=== PATIENT | female | born 1955 | race Caucasian/White ===

== ENCOUNTER 2021-08-08 16:14 | Inpatient (IN) | payer MEDICARE, SELFPAY ==
[2021-08-08] VITALS (14 sets, daily range): BP systolic 111–131; BP diastolic 60–81; PULSE 78–91; RESP 11–28; TEMP 36.9–37; O2SAT 89–100; BMI 23.8
--- NOTE | ~2021-08-08 | XR_ITS ---
EXAMINATION: XR shoulder RT min 2V DATE: 08/11/2021 16:36 INDICATION: Right-sided weakness. Falls. TECHNIQUE: 4 views of right shoulder were obtained. COMPARISON: None. FINDINGS: There is superior subluxation of humeral head with respect to glenoid with narrowing of the subacromial space, consistent with rotator cuff tear. No fracture. There is mild osteoarthritis of g lenohumeral joint and moderate osteoarthritis of acromioclavicular joint. IMPRESSION: 1. Polyarticular osteoarthritis. 2. Right rotator cuff tear. Reviewed, dictated and finalized at location B.
--- NOTE | ~2021-08-08 | XR_ITS ---
EXAMINATION: XR humerus RT DATE: 08/11/2021 16:36 INDICATION: Right arm weakness. Falls. TECHNIQUE: 2 views of right humerus were obtained on 3 radiographs. COMPARISON: None. FINDINGS: Bone alignment is normal. No fracture. There is mild osteoarthritis of glenohumeral joint a nd moderate osteoarthritis of acromioclavicular joint. There are enthesophytes at medial and lateral humeral epicondyles. IMPRESSION: 1. Polyarticular osteoarthritis. Reviewed, dictated and finalized at location B.
--- NOTE | ~2021-08-08 | XR_ITS ---
XR chest 1V DATE: 08/08/2021 17:09 INDICATION: Fall TECHNIQUE: AP chest COMPARISON: None FINDINGS: Cardiomegaly. Prominent aortic calcification. There is prominent blunting of the left costophrenic angle which may be due to pleural effusion and/o r scarring. There is infiltrate, atelectasis and/or scarring of the mid and lower left lung. There is left apical capping. There is left lung volume loss. There is mild right apical capping. The right lung is moderately hyperinflated. There may be minimal infiltrate or atelectasis at the right lung base but the right lung otherwise appears clear of infilt rate or consolidation. No right pleural effusion. Diffuse osteopenia. There is mild thoracic dextroscoliosis. IMPRESSION: Prominent infiltrate, atelectasis and/or scarring in the left mid and lower lung Left pleural effusion and/or scarring Hyperinflation, suggesting COPD Cardiomegaly Aortic atherosclerosis Osteopenia Reviewed, dictated and finalized at location A. IMPRESSION: Prominent infiltrate, atelectasis and/or scarring in the left mid a nd lower lung Left pleural effusion and/or scarring Hyperinflation, suggesting COPD Cardiomegaly Aortic atherosclerosis Osteopenia
--- NOTE | ~2021-08-08 | XR_ITS ---
XR knee RT 2V 08/08/2021 17:09 Indication: Right knee pain Procedure: 3 views right knee Comparison: No prior studies for comparison. Findings: There is anatomic alignment. There is mild osteoarthritis. There are vascular calcification s and phleboliths. No significant joint effusion. No acute fracture or traumatic malalignment. Impression: 1: No acute fracture. Reviewed, dictated and finalized at location B. Impression: 1: No acute fracture.
--- NOTE | ~2021-08-08 | XR_ITS ---
XR chest 1V portable DATE: 08/17/2021 05:40 INDICATION: Increased oxygen uterus TECHNIQUE: Portable AP chest on 08/17/2021 0524 hours COMPARISON: 08/15/2021 portable AP chest at 1631 hours FINDINGS: Right internal jugular dialysis catheter tip overlies the upper right atrium. Cardiac megaly. Extensive thoracic and abdominal aortic calcification. Persistent infiltrate in the left mid and lower lung zones and mild left pleural effusion. No right pleural effusion. Osteopenia. IMPRESSION: No significant change since 08/15/2021 Reviewed, dictated and finalized at location A.
--- NOTE | ~2021-08-08 | NM_ITS ---
EXAMINATION: NM bone scan whole body DATE: 08/14/2021 15:44 INDICATION: Calf pain. Assess for metastatic calcification. TECHNIQUE: 26.9 mCi Tc-99m HDP was administered intravenously. Delayed whole-body scintigrams were o btained. COMPARISON: Right hip radiographs dated 08/10/2021, right wrist radiographs dated 08/09/2021 and chest radiograph dated 08/08/2021. FINDINGS: Photopenic defect at the right hip corresponding to a bipolar type right hip hemiarthroplasty. Increa sed uptake at the right wrist corresponding to a recent fracture of the distal radial metaphyseal reg ion. Otherwise normal bone and soft tissue activity. IMPRESSION: 1. Uptake at the right wrist associated with a recent distal radial fracture seen on radiographs date d 08/09/2021. 2. Photopenic defect associated with a recently placed right hip hemiarthroplasty. Reviewed, dictated and finalized at location A. IMPRESSION: 1. Uptake at the right wrist associated with a recent distal radial fracture se en on radiographs dated 08/09/2021. 2. Photopenic defect associated with a recently placed right hip hemiarthroplas ty.
--- NOTE | ~2021-08-08 | XR_ITS ---
EXAMINATION: XR chest port-a-cath/central DATE: 08/15/2021 16:35 INDICATION: Central line placement. TECHNIQUE: A single frontal view of the chest was obtained. COMPARISON: Chest 2 views 08/08/2021 FINDINGS: There are airspace opacities in left mid and lower lung zones. There is mild scarring at th e lung apices. A calcified right lung nodule is consistent with old granulomatous disease. There is a small left pleural effusion. No pneumothorax. The heart size is normal. A right internal jugular andrew tral venous catheter is seen with tip in the proximal right atrium. IMPRESSION: 1. Central line tip in proximal right atrium. 2. Stable airspace opacities in left mid and lower lung zones, consistent with atelectasis versus pne umonia. 3. Stable small left pleural effusion. Reviewed, dictated and finalized at location B. IMPRESSION: 1. Central line tip in proximal right atrium. 2. Stable airspace opacities in left mid and lower lung zones, consistent with atelectasis versus pneumonia. 3. Stable small left pleural effusion.
--- NOTE | ~2021-08-08 | XR_ITS ---
XR chest 1V portable DATE: 08/17/2021 08:09 INDICATION: Shortness of breath. Hypertension. TECHNIQUE: Portable AP chest on 08/17/2021 at 0805 hours COMPARISON: 08/17/2021 portable AP chest at 0524 hours FINDINGS: Right internal jugular dialysis catheter is again noted with tip overlying upper right atri um. Cardiomegaly. Extensive thoracic and abdominal aortic calcification. Persistent infiltrate and/atelectasis in the left mid and lower lung zone and mild left pleural effus ion, stable since 8 hours earlier. Osteopenia. IMPRESSION: Persistent infiltrate and/atelectasis in left mid and lower lung zones and mild left pleu ral effusion: No significant change since 8 hours earlier Reviewed, dictated and finalized at location A. IMPRESSION: Persistent infiltrate and/atelectasis in left mid and lower lung zo stefano and mild left pleural effusion: No significant change since 8 hours earlier
--- NOTE | ~2021-08-08 | XR_ITS ---
EXAMINATION: XR hip RT min 2V DATE: 08/10/2021 10:05 INDICATION: Status post right hip arthroplasty TECHNIQUE: 2 views right hip FINDINGS: There is a right bipolar hip arthroplasty in expected position. Subcutaneous gas with soft tissue swelling are consistent with recent surgery. IMPRESSION: 1. Recent right bipolar hip arthroplasty. Reviewed, dictated and finalized at location A.
--- NOTE | ~2021-08-08 | XR_ITS ---
XR wrist RT w scaphoid 08/09/2021 06:03 Indication: Wrist pain after fall Procedure: 5 views of the right wrist Comparison: No prior studies for comparison. Findings: Osteopenia. There is a nondisplaced distal radial fracture. Cannot exclude intra-articular extension. There is moderate dorsal soft tissue swelling. No carpal fractures are identified. There a re extensive vascular calcifications. Mild osteoarthritis of the triscaphe and first CMC joints. Impression: 1: Nondisplaced fracture distal aspect of the radius. Cannot exclude intra-articular extension. Reviewed, dictated and finalized at location A. Impression: 1: Nondisplaced fracture distal aspect of the radius. Cannot exclude intra-kerry cular extension.
--- NOTE | ~2021-08-08 | XR_ITS ---
EXAMINATION: XR barium swallow modified DATE: 08/11/2021 14:08 INDICATION: Dysphagia. TECHNIQUE: The patient was given barium-containing material of multiple consistencies to swallow by t ruben speech pathologist while I performed fluoroscopy. Dose-area product was 1.513 Gy-cm2. 3.3 minutes fluoroscopy time FINDINGS: Oral phase: Within functional limits Pharyngeal Phase: Reduced tongue base retraction Minimal vallecular residue Trace laryngeal penetration during swallowing of solid food Cervical/Esophageal Stage: Within functional limits IMPRESSION: Modified esophagram findings as above. Please refer to the speech therapy report for spec ific recommendations. Reviewed, dictated and finalized at Location A. Reviewed, dictated and finalized at location A. IMPRESSION: Modified esophagram findings as above. Please refer to the speech t herapy report for specific recommendations.
--- NOTE | ~2021-08-08 | CT_ITS ---
Patient Name: Patient Name MR#: Patient MRN Accession#: Accession Numbers EXAMINATION: CTA brain carotid DATE: 08/10/2021 18:58 INDICATION: Stroke TECHNIQUE: Computed tomographic angiography (CTA) of the head was performed without and with 100 mL O mnipaque-300 intravenous contrast. CTA of the neck was performed with intravenous contrast. The dose- length product was 1707.16 mGy-cm. Maximum intensity projection and volume rendered 3D-reconstruction s were created by the technologist on a separate workstation. COMPARISON: None. FINDINGS: CTA NECK: Aortic arch and proximal great vessels: Atherosclerotic calcifications at the visualized aortic arch and proximal great vessels. Moderate origin stenosis of the left common carotid artery. Severe stenos is of the left subclavian artery origin. Right common carotid, carotid bifurcation, and internal carotid artery: Mild calcified plaque at the distal bifurcation/proximal right ICA.There is 28% stenosis of the proximal right internal carotid ar inez relative to normal distal artery lumen diameter (NASCET criteria). Left common carotid, carotid bifurcation, and internal carotid artery: No significant atherosclerosis .There is 0% stenosis of the proximal left internal carotid artery relative to normal distal artery l umen diameter (NASCET criteria). Vertebral arteries: No significant plaque or stenosis. Right vertebral artery is dominant, Other findings: Peripheral consolidation in the anterior left lower lung, incompletely evaluated. Sma ll-moderate possibly loculated left pleural effusion. Additional peripheral nodular opacity in the le ft upper lung. Likely coronary artery calcifications. Pericardial and prevascular calcification possi claude from prior surgery or prior bout of pericarditis. CTA HEAD: No large vessel occlusion, aneurysm, high flow vascular malformation, nidus or extravasation. Circumf erential calcification at the cavernous carotids bilaterally, without severe stenosis. Focal calcific plaque in the distal bilateral vertebral arteries without severe stenosis. CT brain: No acute large vessel infarct, intracranial hemorrhage, mass, or hydrocephalus. Mild atrophy and inspector returned materials yanna white matter change. IMPRESSION: 1. No intracranial large vessel occlusion. No significant carotid or vertebral stenosis. 2. Pulmonary findings may reflect multifocal pneumonia with small-moderate parapneumonic, possibly l oculated effusion. These findings should be followed to ensure resolution and exclude mass/malignancy . Reviewed, dictated and finalized at location K. IMPRESSION: 1. No intracranial large vessel occlusion. No significant carotid or vertebral stenosis. 2. Pulmonary findings may reflect multifocal pneumonia with small-moderate par apneumonic, possibly loculated effusion. These findings should be followed to e nsure resolution and exclude mass/malignancy.
--- NOTE | ~2021-08-08 | XR_ITS ---
XR hip RT 2V w AP pelvis DATE: 08/08/2021 17:09 INDICATION: Fall. Externally rotated leg. TECHNIQUE: AP pelvis. AP, lateral and crosstable lateral views of right hip COMPARISON: None FINDINGS: There is osteopenia. No pelvic fracture or bone destruction is detected. The pubic symphysis and sacroiliac joints appear intact. There are multiple surgical clips overlying the right lower quadrant and pelvis. There is superolateral displacement of right subcapital femoral neck fracture. No hip fracture detect ed dislocation noted otherwise. Catheter overlies the pelvis. IMPRESSION: Right subcapital femoral neck fracture Reviewed, dictated and finalized at location A.
--- NOTE | ~2021-08-08 | XR_ITS ---
EXAMINATION: XR fl guide central line place DATE: 08/15/2021 16:15 INDICATION: Tunneled dialysis catheter placement. TECHNIQUE: 2 intraoperative fluoroscopic views of the chest were obtained. I was not present. Fluoros copy exposure time was 6 seconds. COMPARISON: None. FINDINGS: There is a right internal jugular central venous catheter with tip in proximal right atrium . IMPRESSION: 1. Catheter tip in proximal right atrium. Reviewed, dictated and finalized at location B.
--- NOTE | 2021-08-08 16:39 | ECG_ITS ---
Measurements Intervals [place] Rate: 81 P: 69 IA: 157 QRS: 68 QRSD: 102 T: 84 QT: 353 QTc: 410 Interpretive Statements SINUS RHYTHM POSSIBLE LATERAL MYOCARDIAL INFARCTION , OF INDETERMINATE AGE [30 ms Q WAVE IN I/aVL/V5/V6] INFEROLATERAL ST ABNORMALITY, CONSIDER ISCHEMIA ABNORMAL EKG NO PREVIOUS ECG AVAILABLE FOR COMPARISON Electronically Signed On 08-09-2021 13:42:57 CDT by Hermann Ayon M.D.
[2021-08-08 16:52] LABS: Basophils Percent Auto 0.4 % (0.2-1.2); Eosinophils Absolute Auto 0.3 K/mm3 (0-0.3); Eosinophils Percent Auto 3.1 % (0-4.4); Hematocrit 37.4 % (37.0-47.0); Hemoglobin 12.2 g/dL (12.0-15.0); Immature Granulocyte Absolute 0.05 K/mm3 (0.00-0.031); Immature Granulocyte Percent A 0.5 % (0-0.5); Lymphocytes Absolute Auto 1.42 K/mm3 (0.9-3.2); Lymphocytes Percent Auto 14.5 % (18.3-44.2); Mean Corpuscular HGB Conc 32.6 g/dl (32-36); Mean Corpuscular Hemoglobin 31.6 pg (26-34); Mean Corpuscular Volume 96.9 fl (80-100); Mean Platelet Volume 9.9 fl (7.4-10.4); Monocytes Percent Auto 9.7 % (2.6-8.5); Neutrophils Percent Auto 71.8 % (45.5-73.1); Platelet Count Result 255 k/mm3 (150-375); Red Blood Count 3.86 M/mm3 (4.2-5.4); Red Cell Distribution Width 15.7 % (11.5-14.5); White Blood Count 9.8 K/mm3 (4.5-10.0)
[2021-08-08 17:05] LABS: Prothrombin Time 13.2 Seconds (11.1-14.7)
[2021-08-08 17:06] LABS: Partial Thromboplastin Time 37.6 SECONDS (22.3-36.8)
[2021-08-08 17:09] LABS: Alanine Aminotransferase 15 U/L (6-35); Albumin Level 2.9 g/dL (3.5-5.1); Alkaline Phosphatase 252 U/L (38-126); Anion Gap 14 mmol/L (8-16); Aspartate Amino Transferase 23 U/L (14-36); Bilirubin,Total 0.6 mg/dL (0.2-1.3); Blood Urea Nitrogen 42 mg/dL (7-17); Calcium 8.2 mg/dL (8.4-10.2); Carbon Dioxide 22 mmol/L (22-30); Chloride 95 mmol/L (98-107); Estimated CRCL calculation 4 ml/min; Estimated Glomerular Filt Rate 4; Glucose 140 mg/dL (65-110); Potassium 2.7 mmol/L (3.4-5.0); Sodium 131 mmol/L (137-145)
--- NOTE | 2021-08-08 17:25 | ED.FALL ---
HPI - Fall General Chief Complaint: Fall Stated Complaint: fall; hip pain Time Seen by Provider: 08/08/21 16:23 Source: patient Mode of arrival: EMS Limitations: no limitations History of Present Illness HPI Narrative: This is a 66 year old female with history of GERD , kidney transplant , now on dialysis who presents for evaluation of right hip pain s/p fall. Patient states she was getting out truck and she did not realized she on a driveway with incline. She lost her balance and she fell onto her right hip. She denies hitting her head or LOC. She is complaining of right hip pain and right knee pain . She denies neck pain, rib pain or abdominal pain. She has bruising to right cheek and she states this is from a fall from weeks ago. She does not take any blood thinners. Related Data Allergies Allergy/AdvReac Type Severity Reaction Status Date / Time Penicillins Allergy Difficulty Verified 08/08/21 16:31 Breathing Review of Systems Review of Systems: All systems reviewed & are unremarkable except as noted in HPI and below Constitutional: Constitutional: Denies chills and Denies fatigue Cardiovascular: Cardiovascular: Denies chest pain Respiratory: Respiratory: Denies chest congestion and Denies dyspnea Gastrointestinal: Gastrointestinal: Denies abdominal pain, Denies bloating and Denies constipation Musculoskeletal: Musculoskeletal: Denies back pain [facility] Past Medical History Medical History (Updated 08/08/21 @ 17:49 by Chanelle Wyatt MD) ESRD on dialysis GERD (gastroesophageal reflux disease) History of peritoneal dialysis Kidney transplant rejection Orthostatic hypotension Peritoneal dialysis catheter in place Social History Social History (Updated 08/08/21 @ 17:41 by Chanelle Wyatt MD) Smoking status: Never smoker Exam Const: General: alert Nutritional Appearance: thin Orientation/consciousness: patient oriented x3 Limitations: no limitations HENMT: Head: normal to inspection and no hematomas General nose exam: Normal external nose present Mouth: Yes Normal oral and palatal mucosa present Other: right cheek bruising Eyes: Conjunctivae: conjunctivae normal Pupils: Equal, round and reactive pupils present EOM: EOMs intact bilaterally Neck: Neck: normal visual inspection Chest: Chest palpation & inspection: normal inspection of the chest and no tenderness Resp: Effort & Inspection: normal respiratory effort Auscultation: clear to auscultation bilaterally and breath sounds present Cardio: Rate: regular rate Rhythm: regular rhythm Heart sounds: no murmurs GI: GI Palp: Yes Soft to palpation, No Tenderness to palpation present (GI), No Guarding due to palpation present (GI) and No Rigid due to palpation Auscultation: normal bowel sounds Neuro: General: patient oriented x3, moves all extremities and CN's II-XI intact bilaterally Extrem: Other: right hip TTP, unable to move right hip due to pain, there is mild tenderness right knee but no swelling or deformity. Able to move foot distally Psych: Mental Status: mental status grossly normal Affect: normal affect Course Reevaluation(s) Reevaluation #1: Patient understands that she has right hip fracture that will need surgery. 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 Date: 08/08/21 Time: 17:44 Consultations Consultation #1: I Discussed history with Dr. Shelley who agrees to consult for right hip fracture. Date: 08/08/21 Time: 17:43 Consultation #2: I spoke with DR River who agrees to consult. He will arrange for peritoneal dialysis tonight Date: 08/08/21 Time: 17:43 Vital Signs Vital signs: Vital Signs Temperature 98.4 F 08/08/21 16:10 Pulse Rate 85 08/08/21 16:10 Respiratory Rate 18 08/08/21 16:10 Pulse Oximetry 98 08/08/21 16:10 Oxygen Delivery Room Air 08/08/21 16:10 Temperature 98.4 F 10
[2021-08-08] MEDS: ONDANSETRON INJ 4 MG/2 ML VIAL IV PUSH (17:27)
[2021-08-08] MEDS: MORPHINE SULFATE (*CRX) 4 MG/ML INJ IV PUSH (17:27)
[2021-08-08] MEDS: POTASSIUM CHLORIDE 20 MEQ TABLET 40 MEQ PO (17:28)
--- NOTE | 2021-08-08 21:44 | ADMGEN ---
This patient, Ruby Campbell, was admitted to Medical Room 246-01. Patient/family oriented to hospital policies and general routines including ID bracelet, bed and alarms, visiting hours, pain management, procedures, bathroom and other care routines, personal items, smoking policy, room service/diet, and visiting hours. Information on how to activate the Rapid Response Team has been discussed. Patient/Family are encouraged to report perceived risks to care and to ask questions if they do not understand what they are told or what they should do.
--- NOTE | 2021-08-08 22:00 | PM.IMHP ---
H&P: HPI History of Present Illness Date/Time: 08/08/21 22:00 Chief Complaint: Right hip pain after fall. Narrative: This is a very pleasant 66-year-old female with hypotension, suspected chronic obstructive pulmonary disease given significant secondhand smoke exposure, valvular disease, possible congestive heart failure, sleep apnea, borderline diabetes, and end-stage renal disease on peritoneal dialysis who presented to the emergency department via EMS for evaluation of right hip pain after a fall. She and her were going to visit friends at their new home, and when she stepped out of the truck onto the driveway she accidentally stumbled on a sloped curb which caused her to fall backwards and land on the right side of her buttocks and hip. She had immediate pain in her right hip and wrist and was unable to get herself up or bear weight. She was found to have a right subcapital femoral neck fracture and she is being admitted in this setting. Vital signs were stable on arrival. Her potassium level was low at 2.7 and with further questioning she does mention having some loose stools for several days though that has improved. It should be mentioned that within the last couple of months she was taken off tacrolimus and prednisone as her kidney transplant had completely failed and she was no longer making urine. Course she was instructed to taper off of her steroids however she got the instructions confused and it sounds as though she almost abruptly stopped taking the prednisone. It is noted that she is on midodrine and she endorses frequent lightheadedness and dizziness with position changes causing falls (she estimates that she has had 8 falls this year). She assures me that these episodes have been occurring far longer than she has been off the prednisone. At the time my evaluation she is resting comfortably and has no specific complaints. She denies having lightheadedness and dizziness prior to the fall states that was simply a mechanical fall. There was no head trauma or loss of consciousness. Review of Systems Review of Systems: Twelve systems were reviewed. She has lost weight over the years but it has been stable recently. She previously used to CPAP however has not used it much since her weight loss. She denies significant paroxysmal nocturnal dyspnea and seems to sleep okay at nighttime. No recent cold or flu symptoms. No dysphagia or concerns for aspiration. She has occasional chest tightness and shortness of breath ?when fluid accumulates? but her volume status has been well controlled recently. On occasion she will have chest tightness with exertion, most recently several days ago when caring and some groceries. Her symptoms resolved quickly with rest. There was no dizziness, diaphoresis, nausea, vomiting, or significant shortness of breath at that time. She is followed by supervisor winter at [facility] who is monitoring ?some sort of valve problem.? She thinks it may be the aortic valve but she cannot say for certain. She suspects that she has COPD as her parents were heavy smokers in her smoked for decades in their home; she now makes him smoke outdoors. She is also followed by a teacher of the emotionally disturbed who told her that she probably has some emphysema and that she has some scarring at the left lung base. No known history of coronary artery disease. She is uncertain if she has ever had a cardiac catheterization. No longer urinates. Except as documented, all other systems were reviewed and are negative. [facility] Past Medical History Medical History (Updated 08/09/21 @ 00:55 by Velma Rivera PA-C) End-stage renal disease on peritoneal dialysis Gastroesophageal reflux disease Hypertension 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 Transplant lasted 11 years before failing. Obstructive sleep apnea No longer using CPAP after weight loss. Orthostatic hypotension Prediabetes Skin cancer Including basal cell and squamou
[2021-08-08 23:16] LABS: Anion Gap 17 mmol/L (8-16); Blood Urea Nitrogen 43 mg/dL (7-17); Calcium 8.3 mg/dL (8.4-10.2); Carbon Dioxide 21 mmol/L (22-30); Chloride 95 mmol/L (98-107); Estimated CRCL calculation 4 ml/min; Estimated Glomerular Filt Rate 3; Glucose 108 mg/dL (65-110); Magnesium 1.7 mg/dL (1.6-2.3); Phosphorus 9.7 mg/dL (2.5-4.5); Potassium 3.1 mmol/L (3.4-5.0); Sodium 133 mmol/L (137-145)
[2021-08-08 23:18] LABS: Prothrombin Time 13.2 Seconds (11.1-14.7)
[2021-08-08 23:20] LABS: Partial Thromboplastin Time 39.4 SECONDS (22.3-36.8)
--- NOTE | 2021-08-09 00:58 | ECHO_ITS ---
Patient Info Name: Ruby Campbell Age: 66 years : 1955 Gender: Female Ht: 64 in Wt: 138 lbs BSA: 1.69 m2 HR: 97 bpm BP: 131 / 79 mmHg Heart Rhythm: Sinus Rhythm Technical Quality: Good Exam Date: 08/09/2021 9:34 AM Exam Location: [facility] Patient Status: Inpatient Admit Date: 08/08/2021 Staff Ordering Physician: Velma Rivera PA-C Plastics Fabricator Or Welder: Shwetha Gardiner RDCS Attending Provider: Yancy Bustamante MD Referring Physician: Miguel CUEVAS; Exam Type: CA echo doppler color flow Study Info Indications R07.9 - Chest pain, unspecified Complete two-dimensional, color flow and Doppler transthoracic echocardiogram is performed. Summary 1. Complete two-dimensional, color flow and Doppler transthoracic echocardiogram is performed. 2. Left ventricular chamber dimension is severely enlarged. 3. Left ventricular systolic function is severely reduced, estimated at 20-25%. 4. There is mildly increased left ventricular wall thickness. 5. The left ventricular diastolic function is grade II diastolic dysfunction. 6. Right ventricular systolic function is reduced. 7. Left atrial chamber dimension is moderately enlarged. 8. Right atrial chamber dimension is mildly enlarged. 9. There is moderate aortic valve stenosis with a peak velocity of 270 cm/s, mean gradient of 14 mmHg, and aortic valve area of 0.8 cm2. 10. The mitral valve has thickened leaflets and calcified annulus. 11. There is moderate to severe mitral valve regurgitation. 12. There is mild tricuspid valve regurgitation. 13. Moderate pulmonary hypertension, estimated pulmonary arterial systolic pressure is 50 mmHg. 14. There is mild pulmonic regurgitation. Left Ventricle Left ventricular chamber dimension is severely enlarged. Left ventricular systolic function is severely reduced, estimated at 20-25%. There is mildly increased left ventricular wall thickness. The left ventricular diastolic function is grade II diastolic dysfunction. Right Ventricle Right ventricular chamber dimension is normal. Right ventricular systolic function is reduced. Left Atria Left atrial chamber dimension is moderately enlarged. Right Atria Right atrial chamber dimension is mildly enlarged. Atrial Septum Suspected atrial septal defect visualized by color flow imaging. Aortic Valve The aortic valve is probable trileaflet. There is moderate aortic valve stenosis with a peak velocity of 270 cm/s, mean gradient of 14 mmHg, and aortic valve area of 0.8 cm2. There is trace aortic valve regurgitation. Pulmonic Valve The pulmonic valve is normal. There is no pulmonic valve stenosis. There is mild pulmonic regurgitation. Mitral Valve The mitral valve has thickened leaflets and calcified annulus. There is no mitral valve stenosis. There is moderate to severe mitral valve regurgitation. Tricuspid Valve The tricuspid valve leaflets are normal. There is no significant tricuspid valve stenosis. There is mild tricuspid valve regurgitation. Moderate pulmonary hypertension, estimated pulmonary arterial systolic pressure is 50 mmHg. Pericardium/Pleural The pericardium appears normal. There is trivial pericardial effusion. Inferior Vena Cava Dilated inferior vena cava with <50% collapse upon inspiration consistent with elevated right atrial pressure, 10 mmHg. Aorta The aortic root size at the sinus of Valsalva is normal. Left Ventricular Outflow Tract
[2021-08-09 06:00] VITALS: BP 119/74; PULSE 93; RESP 21; TEMP 36.6; O2SAT 100
[2021-08-09 06:07] LABS: Basophils Percent Auto 0.3 % (0.2-1.2); Eosinophils Absolute Auto 0.2 K/mm3 (0-0.3); Eosinophils Percent Auto 1.4 % (0-4.4); Hematocrit 37.7 % (37.0-47.0); Hemoglobin 12.3 g/dL (12.0-15.0); Immature Granulocyte Absolute 0.08 K/mm3 (0.00-0.031); Immature Granulocyte Percent A 0.5 % (0-0.5); Lymphocytes Absolute Auto 2.64 K/mm3 (0.9-3.2); Lymphocytes Percent Auto 17.3 % (18.3-44.2); Mean Corpuscular HGB Conc 32.6 g/dl (32-36); Mean Corpuscular Hemoglobin 31.7 pg (26-34); Mean Corpuscular Volume 97.2 fl (80-100); Mean Platelet Volume 10.3 fl (7.4-10.4); Monocytes Absolute Auto 1.2 K/mm3 (0.1-0.6); Monocytes Percent Auto 8.1 % (2.6-8.5); Neutrophils Percent Auto 72.4 % (45.5-73.1); Platelet Count Result 241 k/mm3 (150-375); Red Blood Count 3.88 M/mm3 (4.2-5.4); Red Cell Distribution Width 15.8 % (11.5-14.5); White Blood Count 15.2 K/mm3 (4.5-10.0)
[2021-08-09 06:11] LABS: Alanine Aminotransferase 14 U/L (6-35); Albumin Level 2.8 g/dL (3.5-5.1); Alkaline Phosphatase 205 U/L (38-126); Anion Gap 19 mmol/L (8-16); Aspartate Amino Transferase 19 U/L (14-36); Bilirubin,Total 0.6 mg/dL (0.2-1.3); Blood Urea Nitrogen 46 mg/dL (7-17); Calcium 8.3 mg/dL (8.4-10.2); Carbon Dioxide 19 mmol/L (22-30); Chloride 96 mmol/L (98-107); Estimated CRCL calculation 4 ml/min; Estimated Glomerular Filt Rate 3; Glucose 104 mg/dL (65-110); Magnesium 1.7 mg/dL (1.6-2.3); Potassium 3.6 mmol/L (3.4-5.0); Sodium 134 mmol/L (137-145)
[2021-08-09 09:16] LABS: Free T4 Free Thyroxine Reflex 1.01 ng/dL (0.78-2.19)
[2021-08-09] MEDS: PANTOPRAZOLE 40 MG TABLET PO (09:18)
[2021-08-09] MEDS: MIDODRINE HCL 10 MG TABLET PO ×3 (09:18→16:19)
[2021-08-09] MEDS: SEVELAMER CARBONATE 800 MG TABLET 2400 MG PO (09:18)
--- NOTE | 2021-08-09 10:13 | PM.CNNEP ---
Assessment and Plan Additional Plan 1. Ruby has end-stage renal disease. She gets peritoneal dialysis. She uses yellow bags. Mostly because she does not eat very well. We will continue to use yellow bags today. her volume status looks okay. She has no swelling and her lungs are clear. Chest x-ray does not show fluid. Although she does have cardiomegaly. Her potassium is okay. Her bicarbonate level is a little low. Will give her some sodium bicarbonate tablets. Her creatinine is a little bit high. We will do more dialysis here than at home to see if we get these numbers better. 2. hypertension no longer an issue 3. orthostatic hypotension blood pressure drops with standing she says. We can not really test this not because of her broken hip. I worry that she has adrenal insufficiency. I will check a Cortrosyn stim test. This we will get the baseline right away. If the baseline is below 15 and if there is not enough time before surgery will empirically start her on steroids to get her through the surgery. 4. sleep apnea She does not use a CPAP machine since she lost weight. 5. pre diabetes Sugars good at 1:04 a.m. this morning 6. valvular heart disease she is getting an echocardiogram. 7. fractured right hip She will be seen by Orthopedics. The patient probably has soft bones between the steroids and the renal osteodystrophy. 8. GERD she is on pantoprazole 9. anemia hemoglobin is good at 12.7. No need for EPO. 10. renal osteodystrophy Phosphorus level is very high. She takes sevelamer at home. History of Present Illness Reason for Consult Consult date: 08/09/21 Chief Complaint Chief complaint: right closed subcapital femoral neck fracture disp History of Present Illness Narrative: Ruby is a very pleasant 66-year-old lady who has multiple medical problems including end-stage renal disease on dialysis at home with peritoneal dialysis, status post kidney transplant which lasted 11 years until about a year at ago or so, GERD, hypertension, sleep apnea, orthostatic hypotension. The patient's says that lately she has had trouble with her peritoneal dialysis. Apparently her kinetics show that she s not enough treatment. They been adjusting her dialysis accordingly. She has not been eating very well and she has lost some weight. In addition the patient was getting tacrolimus and prednisone for her transplant. Even though her transplant failed and she was back on dialysis she was making some urine. A couple of months ago she stopped making urine. She was told to wean the tacro and then after tacro was off wean the prednisone but she misunderstood and she stopped both suddenly. This is about a month ago. Her blood pressure used to be high. But when she started dialysis the blood pressure is under better control and she has not had to take any blood pressure meds. In fact sometimes are blood pressure is low and she has orthostatic hypotensive and so she is getting midodrine for this. The patient says that yesterday when she was stepping out of her truck she lost her balance and fell and hurt her right wrist and her right hip. She came to the ER. X-ray show a right hip fracture. Ortho has been consulted. Currently the patient's right hip does not hurt so bad it is more her right knee. She also has pain in her right wrist. This is about the same as it was yesterday. She is getting some pain medicines occasionally. Review of Systems Constitutional: Constitutional: Reports no additional constitutional complaints Eyes: Eyes: Reports no additional eye complaints ENT: Reports system reviewed and no additional complaints, except as documented Cardiovascular: Cardiovascular: Reports no additional cardiovascular complaints Respiratory: Respiratory: Reports no additional respiratory complaints Gastrointestinal: Gastrointestinal: Reports no additional gastrointestinal complaints Genitourinar
--- NOTE | 2021-08-09 10:27 | PM.CNCAR ---
Assessment and Plan Assessment and plan (1) Hypertension: Code(s): I10 - Essential (primary) hypertension Status: Acute Assessment and Plan: Reasonably controlled (2) Obstructive sleep apnea: Code(s): G47.33 - Obstructive sleep apnea (adult) (pediatric) Status: Acute (3) End-stage renal disease on peritoneal dialysis: Code(s): N18.6 - End stage renal disease; Z99.2 - Dependence on renal dialysis Status: Acute Assessment and Plan: On peritoneal dialysis (4) Closed subcapital fracture of neck of right femur: Qualifiers: Encounter type: initial encounter Qualified Code(s): S72.011A - Unspecified intracapsular fracture of right femur, initial encounter for closed fracture Code(s): S72.011A - Unspecified intracapsular fracture of right femur, initial encounter for closed fracture Status: Acute (5) Preoperative cardiovascular examination: Code(s): Z01.810 - Encounter for preprocedural cardiovascular examination Status: Acute Assessment and Plan: She is at moderate risk of having perioperative cardiovascular complications. Caution to avoid excessive fluid resuscitation perioperatively. (6) Valvular heart disease: Code(s): I38 - Endocarditis, valve unspecified Status: Acute Assessment and Plan: 2D echocardiogram Doppler is ordered and will be reviewed. History of Present Illness History of Present Illness Consult date/time: 08/09/21 10:27 Reason For Visit: right closed subcapital femoral neck fracture disp Narrative: Requesting provider: Velma Rivera Reason for consultation: Preoperative risk evaluation Date of service 08/09/2021 History: Patient is a 66-year-old female who has a history of shortness of breath with activity. She denies any syncope, presyncope, paroxysmal nocturnal dyspnea, orthopnea. She has intermittent swelling. She does have end-stage renal disease. She currently denies any chest pain. Shortness of breath occurs with mild activity. Reportedly does have a history of valvular heart disease and is followed at [facility] Review of Systems Review of Systems: All systems reviewed & are unremarkable except as noted in HPI and below Constitutional: Constitutional: Denies body ache(s) Eyes: Eyes: Denies blurry vision ENT: Reports as per HPI and Reports Normal hearing present Cardiovascular: Cardiovascular: Denies chest pain Respiratory: Respiratory: Denies chest congestion and Reports dyspnea Gastrointestinal: Gastrointestinal: Denies no additional gastrointestinal complaints Genitourinary: Genitourinary: Denies hematuria Musculoskeletal: Musculoskeletal: Denies back pain Integumentary/Breasts: Skin/Breast: Denies breast pain Neurologic: Denies abnormal gait Psychiatric: Psychiatric: Denies anxiety Endocrine: Endocrine: Denies excessive sweating Hematologic/Lymphatic: Hematologic/Lymphatic: Denies easy bleeding Allergic/Immunologic: Allergic/Immunologic: Denies GI upset with certain foods PMFSH Past Medical History Medical History End-stage renal disease on peritoneal dialysis Gastroesophageal reflux disease Hypertension 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 Transplant lasted 11 years before failing. Obstructive sleep apnea No longer using CPAP after weight loss. 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 Valvular heart disease Surgical History Surgical History History of section History of hysterectomy History of tubal ligation Peritoneal dialysis catheter in place Status post excision of Bhatia's neuroma Status post surgical removal of malignant neoplasm of skin Family History Family History (Reviewed 08/09/21 @ 10:32 by Hermann Ayon
--- NOTE | 2021-08-09 10:40 | PM.CNOR ---
Assessment and Plan Assessment and plan (1) Closed subcapital fracture of neck of right femur: Qualifiers: Encounter type: initial encounter Qualified Code(s): S72.011A - Unspecified intracapsular fracture of right femur, initial encounter for closed fracture Code(s): S72.011A - Unspecified intracapsular fracture of right femur, initial encounter for closed fracture Status: Acute Assessment and Plan: New patient evaluation for chief complaint fall with right hip fracture. History, physical exam and radiographs reviewed with the patient. Discussed the condition, nature, etiology and course of natural history with the patient. Treatment options including surgical and nonoperative treatment were reviewed. Risks and benefits of each as well as alternatives reviewed. The patient's questions were answered. Conservative treatment ice And pain control. patient desires operative treatment. Discussed nonoperative and operative treatment options with the patient. Risks and benefits of each as well as alternatives were reviewed. All of the patient's questions were answered. The risks of surgery reviewed including but not limited to: Neurovascular damage, wound complication, infection, blood clot, pulmonary embolus, stroke, myocardial infarction, and anesthetic risks up to and including . Continued pain and possible dysfunction were explained. Specific risks of the procedure including later recurrence of deformity. No guarantees were offered. If hardware used, discussed risk of failure/ breakage and possible need for removal. If complications occur, the patient understands the need for further treatment, possible further surgery. Patient verbalizes understanding and wishes to proceed. PLAN: Right hip hemiarthroplasty. Plan to proceed when stable. Appreciate Nephrology, cardiology. (2) Closed fracture of right distal radius: Qualifiers: Encounter type: initial encounter Fracture morphology: Colles' Qualified Code(s): S52.531A - Colles' fracture of right radius, initial encounter for closed fracture Code(s): S52.501A - Unspecified fracture of the lower end of right radius, initial encounter for closed fracture Status: Acute Assessment and Plan: New patient evaluation status post injury. The history, physical exam and radiographs reviewed with the patient. Type of fracture discussed in detail. Nondisplaced fracture distal radius. Treatment options including operative and non operative treatment reviewed. Risks, benefits and alternatives of each treatment discussed in detail. The patient has declined surgical treatment. Risks of treatment decision discussed in detail. Potential problems with displacement of the fracture, loss of alignment, nonunion, malunion and dysfunction discussed in detail. The patient's questions were answered. They verbalized understanding and agreement. Conservative treatment with immobilization, ice, compression and elevation. Will try and fit with Velcro fracture splint. (3) Fall from ground level: Code(s): W18.30XA - Fall on same level, unspecified, initial encounter Status: Acute History of Present Illness HPI Consult date: 08/09/21 Requesting physician: Chanelle Wyatt MD Chief complaint: right closed subcapital femoral neck fracture disp Narrative: 66-year-old woman who lives at home with her currently on peritoneal dialysis has had multiple recent falls. Patient states week and sometimes dizzy but does not black out. Had a fall last night. Brought to the emergency room and found to have right hip fracture. Admitted for same. Complains of right hip pain. Denies loss of consciousness. Denies neck or back pain. No problems with the hip prior to the injury. Does have numbness in both feet which is chronic. Review of Systems Review of Systems: All systems reviewed & are unremarkable except as noted in HP
[2021-08-09 10:54] LABS: Total Triiodothyronine (T3) 0.56 NG/ML (0.97-1.69)
[2021-08-09] MEDS: COSYNTROPIN 0.25 MG/ML VIAL IV PUSH (10:58)
--- NOTE | 2021-08-09 13:24 | PM.IMPN ---
Progress Note: A&P Assessment and Plan (1) Fall from ground level: Code(s): W18.30XA - Fall on same level, unspecified, initial encounter Status: Acute Assessment and Plan: Mechanical fall in which she sustained a right hip fracture and right distal radius fracture. Patient does report frequent falls. Implement fall precautions She will need PT/OT postoperatively (2) Closed subcapital fracture of neck of right femur: Qualifiers: Encounter type: initial encounter Qualified Code(s): S72.011A - Unspecified intracapsular fracture of right femur, initial encounter for closed fracture Code(s): S72.011A - Unspecified intracapsular fracture of right femur, initial encounter for closed fracture Status: Acute Assessment and Plan: Secondary to fall as above Appreciate orthopedic surgery consultation Plan for right hip hemiarthroplasty tomorrow per Orthopedic surgery Supportive care. Analgesics available as needed. (3) Closed fracture of right distal radius: Qualifiers: Encounter type: initial encounter Fracture morphology: Colles' Qualified Code(s): S52.531A - Colles' fracture of right radius, initial encounter for closed fracture Code(s): S52.501A - Unspecified fracture of the lower end of right radius, initial encounter for closed fracture Status: Acute Assessment and Plan: Secondary to fall Seen in consultation by Orthopedic surgery Planning for conservative management with immobilization, ice, compression elevation She will be fitted for a fracture splint Supportive care (4) End-stage renal disease on peritoneal dialysis: Code(s): N18.6 - End stage renal disease; Z99.2 - Dependence on renal dialysis Status: Acute Assessment and Plan: Patient maintained on peritoneal dialysis. Last had peritoneal dialysis on 08/07/2021 Dr. River consulted for dialysis orders. Help is greatly appreciated. Monitor renal function and electrolytes Renal diet Addition of sodium bicarbonate tablets per Nephrology recommendations (5) Hypokalemia: Code(s): E87.6 - Hypokalemia Status: Acute Assessment and Plan: Resolved with supplementation Suspected due to recent loose stools which have resolved Concern for adrenal insufficiency due to discontinuation of prednisone. Cortisol levels are within normal limits. Continue to monitor BMP (6) Valvular heart disease: Code(s): I38 - Endocarditis, valve unspecified Status: Acute Assessment and Plan: Patient reports history of valvular disease that she cannot elaborate on She is followed by a utility system operator at [facility] (name unknown) and records have been requested for review. Echocardiogram has been completed, awaiting interpretation Consultation to utility system operator for risk stratification given upcoming surgery. Reports the patient is at moderate risk for perioperative cardiovascular complications Recommendations to avoid excessive fluid resuscitation perioperatively. (7) Orthostatic hypotension: Code(s): I95.1 - Orthostatic hypotension Status: Acute Assessment and Plan: An ongoing problem for this patient. Continue midodrine. Fall precautions implemented (8) Abnormal TSH: Code(s): R79.89 - Other specified abnormal findings of blood chemistry Status: Acute Assessment and Plan: TSH is elevated at 13.2 with normal T4 but low T3 at 0.56 Will begin levothyroxine 25 mg daily She will need outpatient reflex TSH in 4-6 weeks (9) Leukocytosis: Code(s): D72.829 - Elevated white blood cell count, unspecified Status: Acute Assessment and Plan: WBC is slightly elevated today at 15 Suspect this is reactive secondary to fall/injury No signs/symptoms to suggest underlying infectious etiology. Repeat CBC tomorrow morning Subjective Date/time seen: 08/09/21 13:24 Inte
--- NOTE | 2021-08-09 13:24 | P.PNIM_ITS ---
Progress Note: A&P Assessment and Plan (1) Fall from ground level: Code(s): W18.30XA - Fall on same level, unspecified, initial encounter Status: Acute Assessment and Plan: Mechanical fall in which she sustained a right hip fracture and right distal radius fracture. * Patient does report frequent falls. * Implement fall precautions * She will need PT/OT postoperatively (2) Closed subcapital fracture of neck of right femur: Qualifiers: Encounter type: initial encounter Qualified Code(s): S72.011A - Unspecified intracapsular fracture of right femur, initial encounter for closed fracture Code(s): S72.011A - Unspecified intracapsular fracture of right femur, initial encounter for closed fracture Status: Acute Assessment and Plan: Secondary to fall as above * Appreciate orthopedic surgery consultation * Plan for right hip hemiarthroplasty tomorrow per Orthopedic surgery * Supportive care. Analgesics available as needed. (3) Closed fracture of right distal radius: Qualifiers: Encounter type: initial encounter Fracture morphology: Colles' Qualified Code(s): S52.531A - Colles' fracture of right radius, initial encounter for closed fracture Code(s): S52.501A - Unspecified fracture of the lower end of right radius, initial encounter for closed fracture Status: Acute Assessment and Plan: Secondary to fall * Seen in consultation by Orthopedic surgery * Planning for conservative management with immobilization, ice, compression elevation * She will be fitted for a fracture splint * Supportive care (4) End-stage renal disease on peritoneal dialysis: Code(s): N18.6 - End stage renal disease; Z99.2 - Dependence on renal dialysis Status: Acute Assessment and Plan: Patient maintained on peritoneal dialysis. Last had peritoneal dialysis on 08/07/2021 * Dr. River consulted for dialysis orders. Help is greatly appreciated. * Monitor renal function and electrolytes * Renal diet * Addition of sodium bicarbonate tablets per Nephrology recommendations (5) Hypokalemia: Code(s): E87.6 - Hypokalemia Status: Acute Assessment and Plan: Resolved with supplementation * Suspected due to recent loose stools which have resolved * Concern for adrenal insufficiency due to discontinuation of prednisone. Cortisol levels are within normal limits. * Continue to monitor BMP (6) Valvular heart disease: Code(s): I38 - Endocarditis, valve unspecified Status: Acute Assessment and Plan: Patient reports history of valvular disease that she cannot elaborate on * She is followed by a director learning and development at [facility] (name unknown) and records have been requested for review. * Echocardiogram has been completed, awaiting interpretation * Consultation to director learning and development for risk stratification given upcoming surgery. Reports the patient is at moderate risk for perioperative cardiovascular complications * Recommendations to avoid excessive fluid resuscitation perioperatively. (7) Orthostatic hypotension: Code(s): I95.1 - Orthostatic hypotension Status: Acute Assessment and Plan: An ongoing problem for this patient. * Continue midodrine. * Fall precautions implemented (8) Abnormal TSH: Code(s): R79.89 - Other specified abnormal findings of blood chemistry Status: Acute Assessment and Plan: TSH is elevated at 13.2 with normal T4 but low T3 at 0.56 * Will begin levothyroxine 25
[2021-08-09 14:10] VITALS: BP 113/63; PULSE 85; RESP 16; TEMP 36.3; O2SAT 96
[2021-08-09] MEDS: SODIUM BICARBONATE TAB 650 MG TABLET 1300 MG PO (16:19)
[2021-08-09 19:28] VITALS: BP 123/75; PULSE 88; RESP 17; TEMP 36.9; O2SAT 95
[2021-08-09] MEDS: GENTAMICIN SULFATE 0.1% CR 15 GM TUBE 1 APPLIC TOPICAL (20:23)
[2021-08-09] MEDS: GABAPENTIN 100 MG CAPSULE PO (20:25)
[2021-08-09] MEDS: SERTRALINE HCL 50 MG TABLET PO (20:25)
[2021-08-09] MEDS: ACETAMINOPHEN 325 MG TABLET 650 MG PO (20:43)
--- NOTE | 2021-08-09 21:18 | WPDANESEPP ---
Anes - Eval Pre Procedure Procedure: Operation Date: 08/10/21 07:30 Proposed Procedures p Bipolar Hip Replacement(Right) - Steve Shelley MD Date/Time: 08/09/21 21:18 Pre Op Diagnosis: right closed subcapital femoral neck fracture disp Patient Data Age: 66 Gender: F Height: 1.63 m Weight: 59.6 kg Last Vital Signs Temp 98.5 F 08/09/21 19:28 Pulse 88 08/09/21 19:28 Resp 17 08/09/21 19:28 BP 123/75 08/09/21 19:28 Pulse Ox 95 08/09/21 19:28 O2 Del Method Room Air 08/09/21 09:24 Allergies Allergy/AdvReac Type Severity Reaction Status Date / Time Penicillins Allergy Difficulty Verified 08/08/21 21:33 Breathing Home Medications Medication Instructions Recorded Confirmed Type albuterol sulfate 90 mcg/actuation 1 inh inhalation BID PRN sob 08/08/21 08/08/21 History aerosol inhaler gabapentin 100 mg capsule 100 mg PO DAILY 08/08/21 08/09/21 History gentamicin 0.1 % topical cream 1 applic topical DAILY 08/08/21 08/08/21 History midodrine 10 mg tablet 10 mg PO TID 08/08/21 08/09/21 History pantoprazole 40 mg tablet,delayed 40 mg PO DAILY 08/08/21 08/09/21 History release rizatriptan 10 mg tablet 10 mg PO BID PRN Migraine Headache 08/08/21 08/09/21 History sertraline 50 mg tablet 50 mg PO HS 08/08/21 08/09/21 History sevelamer carbonate 2.4 gram oral 2.4 g PO TID 08/08/21 08/08/21 History powder packet Laboratory Tests 08/08/21 08/08/21 08/09/21 22:59 22:59 05:48 WBC 15.2 K/mm3 H K/mm3 (4.5-10.0) RBC 3.88 M/mm3 L M/mm3 (4.2-5.4) Hgb 12.3 g/dL g/dL (12.0-15.0) Hct 37.7 % % (37.0-47.0) MCV 97.2 fl fl (80-100) MCH 31.7 pg pg (26-34) MCHC 32.6 g/dl g/dl (32-36) RDW 15.8 % H % (11.5-14.5) Plt Count 241 k/mm3 k/mm3 (150-375) MPV 10.3 fl fl (7.4-10.4) Immature Gran % (Auto) 0.5 % % (0-0.5) Neut % (Auto) 72.4 % % (45.5-73.1) Lymph % (Auto) 17.3 % L % (18.3-44.2) [place] % (Auto) 8.1 % % (2.6-8.5) Eos % (Auto) 1.4 % % (0-4.4) Baso % (Auto) 0.3 % % (0.2-1.2) Lymph # (Auto) 2.64 K/mm3 K/mm3 (0.9-3.2) [place] # (Auto) 1.2 K/mm3 H K/mm3 (0.1-0.6) Eos # (Auto) 0.2 K/mm3 K/mm3 (0-0.3) Baso # (Auto) 0.0 K/mm3 K/mm3 (0.0-0.1) Abs Immat Gran (auto) 0.08 K/mm3 H K/mm3 (0.00-0.031) Absolute Neuts (auto) 11.0 K/mm3 H K/mm3 (1.3-6.7) Absolute Nucleated RBC 0.0 K/mm3 K/mm3 (0.0-0.012) Nucleated RBC % 0.0 % % (0.0-0.2) PT 13.2 Seconds Seconds (11.1-14.7) INR 1.0 APTT 39.4 SECONDS H SECONDS (22.3-36.8) Sodium 133 mmol/L L mmol/L (137-145) Potassium 3.1 mmol/L L mmol/L (3.4-5.0) Chloride 95 mmol/L L mmol/L (98-107) Carbon Dioxide 21 mmol/L L mmol/L (22-30) Anion Gap 17 mmol/L H mmol/L (8-16) BUN 43 mg/dL H mg/dL (7-17) Creatinine 11.30 mg/dL H mg/dL (0.7-1.0) Estim Creat Clear Calc 4 ml/min ml/min Estimated GFR 3 L (59 - ) Glucose 108 mg/dL mg/dL (65-110) Calcium 8.3 mg/dL L mg/dL (8.4-10.2) Phosphorus 9.7 mg/dL H mg/dL (2.5-4.5) Magnesium 1.7 mg/dL mg/dL (1.6-2.3) Total Bilirubin AST ALT Alkaline Phosphatase Total Protein Albumin TSH (Reflex) Free T4 Total T3 Random Cortisol Cortisol Baseline Cortisol Resp 30 Min Cortisol Resp 60 Min Hep Bs Antigen Hep Bs Antibody Blood Type Antibody Screen 08/09/21 08/09/21 08/09/21 05:48 05:48 05:48 WBC RBC Hgb Hct MCV
[2021-08-09 21:31] LABS: Hepatitis B Surface Antigen Negative (Negative)
[2021-08-09] MEDS: HYDROcodone/acetaminophen (*CRX) 5-325 MG TABLET 1 TAB PO (21:31)
[2021-08-09 21:46] LABS: Hepatitis B Surface Anti Res Positive
[2021-08-10] VITALS (21 sets, daily range): BP systolic 98–132; BP diastolic 52–80; PULSE 78–112; RESP 12–20; TEMP 36–37.3; O2SAT 91–100
[2021-08-10 05:55] LABS: Hematocrit 36.6 % (37.0-47.0); Hemoglobin 11.8 g/dL (12.0-15.0); Mean Corpuscular HGB Conc 32.2 g/dl (32-36); Mean Corpuscular Hemoglobin 31.8 pg (26-34); Mean Corpuscular Volume 98.7 fl (80-100); Mean Platelet Volume 10.4 fl (7.4-10.4); Platelet Count Result 245 k/mm3 (150-375); Red Blood Count 3.71 M/mm3 (4.2-5.4); Red Cell Distribution Width 16.1 % (11.5-14.5); White Blood Count 13.8 K/mm3 (4.5-10.0)
[2021-08-10 06:04] LABS: Anion Gap 20 mmol/L (8-16); Blood Urea Nitrogen 48 mg/dL (7-17); Calcium 8.6 mg/dL (8.4-10.2); Carbon Dioxide 18 mmol/L (22-30); Chloride 93 mmol/L (98-107); Estimated CRCL calculation 4 ml/min; Estimated Glomerular Filt Rate 4; Glucose 131 mg/dL (65-110); Potassium 3.1 mmol/L (3.4-5.0); Sodium 131 mmol/L (137-145)
--- NOTE | 2021-08-10 07:40 | WPDHPUPDATE1 ---
History and Physical Update Update Date/Time: 08/10/21 07:40 History and Physical has been reviewed, including an updated exam of the patient. There are NO changes in the patient's condition. Risks, benefits, and alternatives have been discussed and questions answered. Patient agrees to proceed with procedure.
--- NOTE | 2021-08-10 07:40 | WPDANESEPPF ---
Anes - Initial Pre Proc Eval Procedure: Operation Date: 08/10/21 07:30 Proposed Procedures p Bipolar Hip Replacement(Right) - Steve Shelley MD Date/Time: 08/10/21 07:40 Surgeon: Yancy Bustamante MD Pre Op Diagnosis: right closed subcapital femoral neck fracture disp Patient Data Age: 66 Gender: F Height: 1.63 m Weight: 59.8 kg Last Vital Signs Temp 36.0 C L 08/10/21 04:26 Pulse 87 08/10/21 04:26 Resp 18 08/10/21 04:26 BP 119/74 08/10/21 04:26 Pulse Ox 95 08/10/21 04:26 O2 Del Method Room Air 08/09/21 20:00 Allergies Allergy/AdvReac Type Severity Reaction Status Date / Time Penicillins Allergy Difficulty Verified 08/08/21 21:33 Breathing Home Medications Medication Instructions Recorded Confirmed Type albuterol sulfate 90 mcg/actuation 1 inh inhalation BID PRN sob 08/08/21 08/08/21 History aerosol inhaler gabapentin 100 mg capsule 100 mg PO DAILY 08/08/21 08/09/21 History gentamicin 0.1 % topical cream 1 applic topical DAILY 08/08/21 08/08/21 History midodrine 10 mg tablet 10 mg PO TID 08/08/21 08/09/21 History pantoprazole 40 mg tablet,delayed 40 mg PO DAILY 08/08/21 08/09/21 History release rizatriptan 10 mg tablet 10 mg PO BID PRN Migraine Headache 08/08/21 08/09/21 History sertraline 50 mg tablet 50 mg PO HS 08/08/21 08/09/21 History sevelamer carbonate 2.4 gram oral 2.4 g PO TID 08/08/21 08/08/21 History powder packet Laboratory Tests 08/09/21 08/09/21 08/09/21 05:48 05:48 10:58 WBC RBC Hgb Hct MCV MCH MCHC RDW Plt Count MPV Sodium Potassium Chloride Carbon Dioxide Anion Gap BUN Creatinine Estim Creat Clear Calc Estimated GFR Glucose Calcium Phosphorus Albumin Free T4 1.01 ng/dL ng/dL (0.78-2.19) Total T3 0.56 NG/ML L NG/ML (0.97-1.69) Cortisol Baseline 23.20 ug/dL ug/dL Cortisol Resp 30 Min Cortisol Resp 60 Min Hep Bs Antigen Hep Bs Antibody Blood Type Antibody Screen 08/09/21 08/09/21 08/09/21 10:58 11:32 12:00 WBC RBC Hgb Hct MCV MCH MCHC RDW Plt Count MPV Sodium Potassium Chloride Carbon Dioxide Anion Gap BUN Creatinine Estim Creat Clear Calc Estimated GFR Glucose Calcium Phosphorus Albumin Free T4 Total T3 Cortisol Baseline Cortisol Resp 30 Min 35.90 ug/dL ug/dL Cortisol Resp 60 Min 46.50 ug/dL ug/dL Hep Bs Antigen Hep Bs Antibody Blood Type O Positive Antibody Screen Negative 08/09/21 08/10/21 08/10/21 19:55 05:28 05:28 WBC 13.8 K/mm3 H K/mm3 (4.5-10.0) RBC 3.71 M/mm3 L M/mm3 (4.2-5.4) Hgb 11.8 g/dL L g/dL (12.0-15.0) Hct 36.6 % L % (37.0-47.0) MCV 98.7 fl fl (80-100) MCH 31.8 pg pg (26-34) MCHC 32.2 g/dl g/dl (32-36) RDW 16.1 % H % (11.5-14.5) Plt Count 245 k/mm3 k/mm3 (150-375) MPV 10.4 fl fl (7.4-10.4) Sodium 131 mmol/L L mmol/L (137-145) Potassium 3.1 mmol/L L mmol/L (3.4-5.0) Chloride 93 mmol/L L mmol/L (98-107) Carbon Dioxide 18 mmol/L L mmol/L (22-30) Anion Gap 20 mmol/L H mmol/L (8-16) BUN 48 mg/dL H mg/dL (7-17) Creatinine 10.70 mg/dL H mg/dL
[2021-08-10] MEDS: ceFAZolin 2 GM/D5W 50 ML 2 GM/50 ML BAG IVPB (07:51)
[2021-08-10] MEDS: TRANEXAMIC ACID 1,000MG/ISO100 1,000 MG/100 ML BAG 200 MG IVPB (07:55)
[2021-08-10] MEDS: LIDO 2%/EPINEPHRINE 1:100,000 20 ML VIAL INFILTRATE (08:41)
[2021-08-10] MEDS: SODIUM CHLORIDE 0.9% IV 500 ML 30 ML IV CONT (09:37)
--- NOTE | 2021-08-10 09:49 | W.PM.PROC2 ---
Procedure Note - Detailed Date of Procedure 08/10/21 Pre-op Diagnosis right closed subcapital femoral neck fracture disp Post-op Diagnosis Same Procedure Performed RT hip bipolar Surgeon Steve Shelley MD Cook Room Supervisor 1st asset protection assistant Anesthesia General Indications 66yo woman, fall with rt hip fx. Desires operative tx. Description of Procedure After informed consent was given, the operative extremity was marked in the preoperative holding area. The patient received intravenous antibiotics. Patient was brought to the operating room where they underwent a general anesthetic. Positioned in the lateral decubitus position nonop side down and the operative hip up. Careful gel padding was ensured for the down side. Protection of the head neck was done during turning as well as through the case. The hip was then prepped and draped in the usual sterile surgical fashion using ChloraPrep skin solution. Time-out performed confirming the patient, side of the surgery, and the plan. A longitudinal incision was then made over the lateral side of the hip with the 10-blade knife. Hemostasis was controlled with electrocautery. Dissection was carried down through the fascia, which was incised in line with the skin incision. Subfascial retractor was placed. The abductor musculature was then elevated off the lateral side of the femur leaving a cuff of tissue for repair. The short abductor musculature was then elevated off the capsule and retention sutures were placed at the corner. The capsule was then incised in line with the femoral neck and T'd at the base. This allowed exposure of the fracture. The acute fracture hematoma was evacuated. Proximal femoral cutting guide was used to make a femoral neck cut at 2 cm above the lesser trochanter. This bone was removed with a rongeur. We then removed the head with a corkscrew. This was measured on the back table. Trialing of the acetabulum was done and a size 43mm had excellent fit. The acetabulum was thoroughly irrigated and suctioned. Part of the fovea was removed with cautery. The rest of the acetabulum was inspected and noted to be with minimal degenerative changes. The proximal femur was then prepared. A posterior femoral retractor elevator was placed and a box cutting chisel was used to enter the femoral canal. We then used the canal finder. Broaching was then performed sequentially in 1 mm increments from a size 4 up to a size 14. This was noted to have excellent fit. We then trialed the hip. Excellent fit, stability with external and internal rotation at full extension and flexion of his hip and leg shuck were noted. The trial components were then removed. There was thorough irrigation with antibiotic solution of the proximal femur, acetabulum, and the wound. The femoral stem was then impacted into place. Good fit was noted. Trialing was once again performed and a - stem with a mm acetabular cup had excellent stability and range of motion. The trial components were removed and the 28 mm head acetabular cup were then impacted onto the femoral stem. The hip was then reduced once again, taken through full range of motion and noted to be stable with the leg extended in full external and internal rotation with the hip flexed to 90 degrees with internal and external rotation. There was equal leg length noted. Wound was thoroughly irrigated with antibiotic solution. The capsule was repaired with #1 Vicryl interrupted suture. The abductors were repaired back with #1 Vicryl interrupted suture. The fascia was repaired with 0 Vicryl running suture. Subcutaneous tissue was repaired in layers with 2-0 Vicryl interrupted suture. Skin repaired with alexia. A sterile dressing was placed. A hip abduction safety pillow was applied. The patient was then returned supine, extubated after awakening from anesthesia, and taken to the recovery room in stable condition. Examination of both feet show good capillary refill in the
--- NOTE | 2021-08-10 10:20 | SUR.PHASEI ---
Patient doesn't want RN to contact anyone at this time with updates.
[2021-08-10] MEDS: PANTOPRAZOLE 40 MG TABLET PO (11:31)
[2021-08-10] MEDS: SODIUM BICARBONATE TAB 650 MG TABLET 1300 MG PO ×2 (11:31→16:00)
[2021-08-10] MEDS: MIDODRINE HCL 10 MG TABLET PO ×2 (12:01→16:00)
--- NOTE | 2021-08-10 14:54 | P.PNIM_ITS ---
Progress Note: A&P Assessment and Plan (1) Fall from ground level: Code(s): W18.30XA - Fall on same level, unspecified, initial encounter Status: Acute Assessment and Plan: Mechanical fall in which she sustained a right hip fracture and right distal radius fracture. * Patient does report frequent falls. * Implement fall precautions * Appreciate PT/OT evals (2) Closed subcapital fracture of neck of right femur: Qualifiers: Encounter type: initial encounter Qualified Code(s): S72.011A - Unspecified intracapsular fracture of right femur, initial encounter for closed fracture Code(s): S72.011A - Unspecified intracapsular fracture of right femur, initial encounter for closed fracture Status: Acute Assessment and Plan: Secondary to fall as above * Appreciate orthopedic surgery consultation * She is s/p right hip bipolar arthroplasty performed today by Dr. Shelley * Appreciate orthopedic surgery consultation * Supportive care. Analgesics available as needed. * PT/OT. She will likely require rehab placement following discharge (3) Closed fracture of right distal radius: Qualifiers: Encounter type: initial encounter Fracture morphology: Colles' Qualified Code(s): S52.531A - Colles' fracture of right radius, initial encounter for closed fracture Code(s): S52.501A - Unspecified fracture of the lower end of right radius, initial encounter for closed fracture Status: Acute Assessment and Plan: Secondary to fall * Seen in consultation by Orthopedic surgery * Planning for conservative management with immobilization, ice, compression elevation * Continue fracture splint * Supportive care (4) End-stage renal disease on peritoneal dialysis: Code(s): N18.6 - End stage renal disease; Z99.2 - Dependence on renal dialysis Status: Acute Assessment and Plan: Patient maintained on peritoneal dialysis. * Nephrology following for continued dialysis during admission * Monitor renal function and electrolytes * Renal diet * Continue sodium bicarbonate tablets per Nephrology recommendations (5) Hypokalemia: Code(s): E87.6 - Hypokalemia Status: Acute Assessment and Plan: Potassium 3.1 today * Continue to supplement potassium as needed * Caution with supplementation given ESRD * Monitor BMP (6) Valvular heart disease: Code(s): I38 - Endocarditis, valve unspecified Status: Acute Assessment and Plan: Patient reports history of valvular disease that she cannot elaborate on * She is followed by a v belt inspector at [facility] (name unknown) and records have been requested for review. * Echocardiogram revealed EF 20-25% with grade 2 diastolic dysfunction, moderate aortic stenosis moderate to severe mitral regurgitation * Appreciate cardiology consultation * Recommendations per Cardiology to avoid excessive fluid resuscitation perioperatively. (7) Orthostatic hypotension: Code(s): I95.1 - Orthostatic hypotension Status: Acute Assessment and Plan: An ongoing problem for this patient. * Continue midodrine. * Fall precautions implemented (8) Abnormal TSH: Code(s): R79.89 - Other specified abnormal findings of blood chemistry Status: Acute Assessment and Plan: TSH is elevated at 13.2 with normal T4 but low T3 at 0.56 * Started levothyroxine 25 mg daily 08/09. Continue * She will need outpatient reflex TSH in 4-6 weeks (9) Leukocytosis:
--- NOTE | 2021-08-10 14:54 | PM.IMPN ---
Progress Note: A&P Assessment and Plan (1) Fall from ground level: Code(s): W18.30XA - Fall on same level, unspecified, initial encounter Status: Acute Assessment and Plan: Mechanical fall in which she sustained a right hip fracture and right distal radius fracture. Patient does report frequent falls. Implement fall precautions Appreciate PT/OT evals (2) Closed subcapital fracture of neck of right femur: Qualifiers: Encounter type: initial encounter Qualified Code(s): S72.011A - Unspecified intracapsular fracture of right femur, initial encounter for closed fracture Code(s): S72.011A - Unspecified intracapsular fracture of right femur, initial encounter for closed fracture Status: Acute Assessment and Plan: Secondary to fall as above Appreciate orthopedic surgery consultation She is s/p right hip bipolar arthroplasty performed today by Dr. Shelley Appreciate orthopedic surgery consultation Supportive care. Analgesics available as needed. PT/OT. She will likely require rehab placement following discharge (3) Closed fracture of right distal radius: Qualifiers: Encounter type: initial encounter Fracture morphology: Colles' Qualified Code(s): S52.531A - Colles' fracture of right radius, initial encounter for closed fracture Code(s): S52.501A - Unspecified fracture of the lower end of right radius, initial encounter for closed fracture Status: Acute Assessment and Plan: Secondary to fall Seen in consultation by Orthopedic surgery Planning for conservative management with immobilization, ice, compression elevation Continue fracture splint Supportive care (4) End-stage renal disease on peritoneal dialysis: Code(s): N18.6 - End stage renal disease; Z99.2 - Dependence on renal dialysis Status: Acute Assessment and Plan: Patient maintained on peritoneal dialysis. Nephrology following for continued dialysis during admission Monitor renal function and electrolytes Renal diet Continue sodium bicarbonate tablets per Nephrology recommendations (5) Hypokalemia: Code(s): E87.6 - Hypokalemia Status: Acute Assessment and Plan: Potassium 3.1 today Continue to supplement potassium as needed Caution with supplementation given ESRD Monitor BMP (6) Valvular heart disease: Code(s): I38 - Endocarditis, valve unspecified Status: Acute Assessment and Plan: Patient reports history of valvular disease that she cannot elaborate on She is followed by a manager nuclear at [facility] (name unknown) and records have been requested for review. Echocardiogram revealed EF 20-25% with grade 2 diastolic dysfunction, moderate aortic stenosis moderate to severe mitral regurgitation Appreciate cardiology consultation Recommendations per Cardiology to avoid excessive fluid resuscitation perioperatively. (7) Orthostatic hypotension: Code(s): I95.1 - Orthostatic hypotension Status: Acute Assessment and Plan: An ongoing problem for this patient. Continue midodrine. Fall precautions implemented (8) Abnormal TSH: Code(s): R79.89 - Other specified abnormal findings of blood chemistry Status: Acute Assessment and Plan: TSH is elevated at 13.2 with normal T4 but low T3 at 0.56 Started levothyroxine 25 mg daily 08/09. Continue She will need outpatient reflex TSH in 4-6 weeks (9) Leukocytosis: Code(s): D72.829 - Elevated white blood cell count, unspecified Status: Acute Assessment and Plan: Improving down to 13.8 today Suspect this is reactive secondary to fall/injury No signs/symptoms to suggest underlying infectious etiology. Repeat CBC tomorrow morning Subjective Date/time seen: 08/10/21 14:54 Interval history: Date of service: 08/10/2021 Ruby Campbell is a 66-year-old female with a history of ES
[2021-08-10] MEDS: POTASSIUM CHLORIDE 20 MEQ TABLET 40 MEQ PO (15:31)
[2021-08-10] MEDS: SENNA/DOCUSATE SODIUM TABLET 2 TAB PO (16:00)
--- NOTE | 2021-08-10 18:38 | PCDIET ---
Code stroke activated at 1826. Upon arrival patient sitting in chair post hip surgery, patient had complaints of left sided weakness. Laila AMAYA at bedside with Dr. Amaya. Dr. Amaya ordered CT scan, consent signed and transfer to IMU status. Pt sent down to CT and will arrive to ICU [address].
[2021-08-10 19:39] LABS: Glucose Point of Care 109 mg/dl (65-105)
[2021-08-10] MEDS: ASPIRIN 81 MG CHEWABLE TABLET 324 MG PO (20:51)
[2021-08-10] MEDS: HEPARIN SODIUM 5,000 UNITS/ML VIAL 5000 UNITS SUB-Q (21:16)
[2021-08-10] MEDS: GABAPENTIN 100 MG CAPSULE PO (21:17)
[2021-08-10] MEDS: SERTRALINE HCL 50 MG TABLET PO (21:18)
[2021-08-10] MEDS: GENTAMICIN SULFATE 0.1% CR 15 GM TUBE 1 APPLIC TOPICAL (21:19)
--- NOTE | 2021-08-10 21:25 | PC.NURSE ---
This patient, Ruby Campbell, was transferred to [facility] on 08/10/21 at 2115. Personal belongings sent with patient. Report given to Juana AMAYA. Appropriate documentation sent with patient.
--- NOTE | 2021-08-10 21:38 | PC.NURSE ---
RECEIVED PT FROM ICU PER BED. VOICES NO C/O
[2021-08-10] MEDS: diazePAM (*CRX) 5 MG TABLET PO (23:20)
[2021-08-11] VITALS (16 sets, daily range): BP systolic 85–102; BP diastolic 50–68; PULSE 56–108; RESP 14–22; TEMP 36.1–37.2; O2SAT 93–98
[2021-08-11] MEDS: HYDROcodone/acetaminophen (*CRX) 5-325 MG TABLET 1 TAB PO ×2 (06:02→18:53)
[2021-08-11] MEDS: LEVOTHYROXINE SODIUM 25 MCG TABLET PO (06:02)
--- NOTE | 2021-08-11 07:41 | P.PNAN_ITS ---
Anes - Prog Note Post-Op Date/Time: 08/11/21 07:41 Cardiovascular status: normal Respiratory status: normal Airway patency: baseline Mental status: baseline Post-Op hydration status: normal Vital Signs: Last Vital Signs Temp 36.9 C 08/11/21 04:58 Pulse 95 08/11/21 04:58 Resp 22 H 08/11/21 04:58 BP 94/67 L 08/11/21 04:58 Pulse Ox 96 08/11/21 04:58 O2 Del Method Room Air 08/10/21 20:00 O2 Flow Rate 2 08/10/21 14:25 Pain Score (VAS): 3 I/O: Intake & Output 08/10/21 08/10/21 08/11/21 15:59 23:59 07:59 Intake Total 490 490 Output Total 0 Balance 490 490 08/10/21 08/11/21 08/11/21 19:37 07:22 07:22 WBC Pending RBC Pending Hgb Pending Hct Pending MCV Pending MCH Pending MCHC Pending RDW Pending Plt Count Pending MPV Pending Immature Gran % (Auto) Pending Neut % (Auto) Pending Lymph % (Auto) Pending [place] % (Auto) Pending Eos % (Auto) Pending Baso % (Auto) Pending Lymph # (Auto) Pending [place] # (Auto) Pending Eos # (Auto) Pending Baso # (Auto) Pending Abs Immat Gran (auto) Pending Absolute Neuts (auto) Pending Absolute Nucleated RBC Pending Nucleated RBC % Pending Sodium Pending Potassium Pending Chloride Pending Carbon Dioxide Pending Anion Gap Pending BUN Pending Creatinine Pending Estim Creat Clear Calc Pending Estimated GFR Pending Glucose Pending POC Capillary Glucose 109 H Calcium Pending Post-procedural complaints: none Patient Feedback: Patient satisfied with anesthetic care.
[2021-08-11 07:43] LABS: Basophils Percent Auto 0.1 % (0.2-1.2); Hematocrit 33.3 % (37.0-47.0); Hemoglobin 10.8 g/dL (12.0-15.0); Immature Granulocyte Absolute 0.08 K/mm3 (0.00-0.031); Immature Granulocyte Percent A 0.6 % (0-0.5); Lymphocytes Absolute Auto 1.48 K/mm3 (0.9-3.2); Lymphocytes Percent Auto 10.3 % (18.3-44.2); Mean Corpuscular HGB Conc 32.4 g/dl (32-36); Mean Corpuscular Hemoglobin 31.6 pg (26-34); Mean Corpuscular Volume 97.4 fl (80-100); Mean Platelet Volume 10.4 fl (7.4-10.4); Monocytes Absolute Auto 1.1 K/mm3 (0.1-0.6); Monocytes Percent Auto 7.3 % (2.6-8.5); Neutrophils Absolute Auto 11.8 K/mm3 (1.3-6.7); Neutrophils Percent Auto 81.7 % (45.5-73.1); Platelet Count Result 188 k/mm3 (150-375); Red Blood Count 3.42 M/mm3 (4.2-5.4); Red Cell Distribution Width 16.5 % (11.5-14.5); White Blood Count 14.4 K/mm3 (4.5-10.0)
[2021-08-11 07:52] LABS: Anion Gap 19 mmol/L (8-16); Blood Urea Nitrogen 49 mg/dL (7-17); Calcium 8.3 mg/dL (8.4-10.2); Carbon Dioxide 16 mmol/L (22-30); Chloride 93 mmol/L (98-107); Estimated CRCL calculation 5 ml/min; Estimated Glomerular Filt Rate 4; Glucose 135 mg/dL (65-110); Potassium 3.7 mmol/L (3.4-5.0); Sodium 128 mmol/L (137-145)
--- NOTE | 2021-08-11 09:14 | PM.PNORT ---
Progress Note: A&P Assessment and Plan (1) Closed subcapital fracture of neck of right femur: Qualifiers: Encounter type: initial encounter Qualified Code(s): S72.011A - Unspecified intracapsular fracture of right femur, initial encounter for closed fracture Code(s): S72.011A - Unspecified intracapsular fracture of right femur, initial encounter for closed fracture Status: Acute Assessment and Plan: POD #1 : Right Hip Bipolar Continue PT/OT. WBAT. Walker. HIGH FALL RISK. Continue pain control. Ice hip. Protect skin. DVT prophylaxis with Heparin. SCDs. Incentive Spirometry Use reviewed. Monitor Dressing. Change prior to discharge. Bowel Regimen. Dispo: SNF pending progress with PT/OT and medical stability. (2) Closed fracture of right distal radius: Qualifiers: Encounter type: initial encounter Fracture morphology: Colles' Qualified Code(s): S52.531A - Colles' fracture of right radius, initial encounter for closed fracture Code(s): S52.501A - Unspecified fracture of the lower end of right radius, initial encounter for closed fracture Status: Acute Assessment and Plan: Patient to be fit with velcro splint. Conservative treatment. Ice. Elevate. Subjective Subjective Date/Time Seen: 08/11/21 09:14 Post Op day: 1 Interval history: POD #1: RT hip bipolar Patient working with PT/OT. Slow progress. Pain controlled. Review of Systems Review of Systems: All systems reviewed & are unremarkable except as noted in HPI and below Constitutional: Constitutional: Denies chills, Denies fever(s), Denies headache(s), Denies lethargy and Reports weakness ENT: Denies headache(s) Cardiovascular: Cardiovascular: Denies chest pain, Denies diaphoresis, Denies lightheadedness, Denies palpitations, Denies dyspnea and Denies dyspnea on exertion Respiratory: Respiratory: Denies cough, Denies dyspnea and Denies dyspnea on exertion Gastrointestinal: Gastrointestinal: Denies constipation, Denies diarrhea, Denies nausea and Denies vomiting Genitourinary: Genitourinary: Reports urinary frequency, Denies dysuria and Denies urinary hesitancy Musculoskeletal: Musculoskeletal: Reports joint swelling (Right Hip ) and Reports limited range of motion (Right Hip due to recent surgery ) Neurologic: Denies headache(s) and Reports weakness Endocrine: Endocrine: Denies palpitations Exam Const: General: comfortable and no acute distress Resp: Effort & Inspection: normal respiratory effort Cardio: Rate: regular rate Rhythm: regular rhythm GI: Inspection: non-distended Skin: General skin exam: normal color Other: Incision right hip c/d/i. Surrounding tissue without redness/warmth. Mild swelling consistent with recent surgery. No drainage. Neuro: Cognition (Neuro): normal cognition Speech: normal speech Extrem: Right lower extremity: normal to inspection, normal capillary refill, hip/thigh Details: tenderness Location: of the hip (Thigh soft ) Location: laterally and anteriorly, swelling Location: at the hip, abnormal ROM (limited consistent with recent surgery ) Details: pain with active ROM during and pain with passive ROM during and other (Incision c/d/i. ); no deformity and no unusual warmth, knee Details: normal to inspection; no tenderness and no swelling, lower leg (Negative Carlos's Sign ) Details: normal to inspection and no edema; no tenderness, ankle (+ankle dorsiflexion/plantarflexion) Details: normal to inspection and no edema; no tenderness, no swelling and no ecchymosis and foot Details: normal capillary refill, toes with normal ROM, vascular exam Details: dorsalis pedis pulse present and motor-sensory exam Details: light-touch normal; no tenderness Objective Data Vital Signs Vital Signs: Vital Signs - 24 hr 08/10/21 09:37 08/10/21 09:45 08/10/21 09:50 Temperature 36.7 C Pulse Rate 95 85 82 Respiratory Rate 14 14 14 Blood Pressure 120/68 117/68 123/74 P
[2021-08-11] MEDS: MIDODRINE HCL 10 MG TABLET PO (11:15)
[2021-08-11 13:08] LABS: Sodium 129 mmol/L (137-145)
--- NOTE | 2021-08-11 14:04 | PCPTNOTE ---
The patient treatment was not able to be completed due to patient not being in her room. The RN states that the pt was with the doctor and then she was going down for a swallow test. Will plan to continue treatment per plan of care.
--- NOTE | 2021-08-11 14:18 | PCSTNOTE ---
Please refer to the Modified Barium Swallow Evaluation in the EMR.
--- NOTE | 2021-08-11 14:55 | PM.PNNEP ---
Progress Note: A&P Additional Plan 1. Ruby has end-stage renal disease. She gets peritoneal dialysis. She uses yellow bags. Will continue this. Volume status looks fine. Her creatinine and BUN are both improved. Her potassium is okay. Her bicarbonate level is a little low. She is on sodium bicarbonate tablets. 2. hypertension no longer an issue 3. orthostatic hypotension blood pressure drops with standing she says. We can not really test this not because of her broken hip. her cortisol level was high so no need to start her on prednisone. 4. sleep apnea She does not use a CPAP machine since she lost weight. 5. pre diabetes Sugars good at 135 this morning 6. valvular heart disease . She has multiple issues including moderate aortic stenosis, moderate to severe mitral regurgitation, moderate pulmonary hypertension, a left ventricular ejection fraction of only 20-25%, and severely enlarged LV chamber. She also has grade 2 diastolic dysfunction. Cardiology saw the patient. 7. fractured right hip She will be seen by Orthopedics. The patient probably has soft bones between the steroids and the renal osteodystrophy. 8. GERD she is on pantoprazole 9. anemia hemoglobin is down to 10.8. Will give a shot of EPO. 10. renal osteodystrophy Phosphorus level is very high. She takes sevelamer at home. Subjective Date/time seen: 08/11/21 14:55 Interval history: Patient feels better today. 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 CT of the brain was negative. The deficit was short-lived. Dr. Amaya and ROWENA Dietz were in attendance. By evening she had improved. She has no chest pain or shortness of breath. Her strength is good on both sides she says. Review of Systems Cardiovascular: Cardiovascular: Reports no additional cardiovascular complaints Respiratory: Respiratory: Reports no additional respiratory complaints Gastrointestinal: Gastrointestinal: Reports no additional gastrointestinal complaints Genitourinary: Genitourinary: Reports no additional female genitourinary complaints Exam Narrative: WDWN in NAD skin no rash head ncat lungs clear cor reg no rub abd BS+ nontender and soft ext no edema. Objective Data Vital Signs Vital Signs: Vital Signs - 24 hr 08/10/21 16:00 08/10/21 18:10 08/10/21 19:52 Temperature Pulse Rate 85 96 Respiratory Rate Blood Pressure 98/52 L Pulse Oximetry 96 96 Oxygen Delivery Room Air 08/10/21 20:00 08/10/21 20:00 08/10/21 20:58 Temperature 37.3 C Pulse Rate 99 105 H Respiratory Rate 20 Blood Pressure 107/73 Pulse Oximetry 91 Oxygen Delivery Room Air 08/10/21 22:00 08/11/21 00:00 08/11/21 00:58 Temperature 37.0 C Pulse Rate 112 H 91 94 Respiratory Rate 18 Blood Pressure 95/66 L Pulse Oximetry 95 Oxygen Delivery 08/11/21 04:00 08/11/21 04:58 08/11/21 08:25 Temperature 36.9 C Pulse Rate 93 95 Respiratory Rate 22 H Blood Pressure 94/67 L Pulse Oximetry 96 Oxygen Delivery Room Air 08/11/21 10:30 08/11/21 11:15 08/11/21 08:00 Temperature 36.3 C L Pulse Rate 88 85 Respiratory Rate 16 Blood Pressure 98/68 L Pulse Oximetry 98 Oxygen Delivery 08/11/21 12:00 Temperature Pulse Rate 91 Respiratory Rate Blood Pressure Pulse Oximetry Oxygen Delivery Intake/Output Intake/Output: Intake & Output 08/08/21 08/09/21 08/10/21 08/11/21 23:59 23:59 23:59 23:59 Intake Total 65 1440 1080 Output Total 0 Balance 65 1440 1080 Meds/Results Medications: Active Medications Generic Name Dose Route Start Last Admin Trade Name Freq PRN Reason Stop Dose Admin Acetaminophen 650 mg 08/09/21 16:31 08/09/21 20:43 Acetaminophen 325 Mg Tablet PO 650 mg Q4H PRN Administration Pain 1-3 Hydrocodone Bitart/Acetaminophen 1 tab 08/10/21 11:13 08/11/21 06:02 Hydrocodone/Acetaminophen (*Crx) 5-325 Mg Tablet PO 1 tab Q3H PRN Adm
--- NOTE | 2021-08-11 15:03 | PM.EVENT ---
Event Note Event Note Event Note: I talked with the patient. She really really really does not want to go on hemodialysis. I talked with Tala at [facility]. They are trying to get a contract with a senior care near by to do the peritoneal dialysis. They have been working on this for several weeks so hopefully is close to fruition. If they can't do this then I did tell the patient that the [facility] in [place] and she seemed to be okay with that as well. Will order a hepatitis B series in case we have to switch to hemo.
--- NOTE | 2021-08-11 15:40 | P.PNIM_ITS ---
Progress Note: A&P Assessment and Plan (1) Fall from ground level: Code(s): W18.30XA - Fall on same level, unspecified, initial encounter Status: Acute Assessment and Plan: Mechanical fall in which she sustained a right hip fracture and right distal radius fracture. * Patient does report frequent falls. * Fall precautions * Appreciate PT/OT evals (2) Closed subcapital fracture of neck of right femur: Qualifiers: Encounter type: initial encounter Qualified Code(s): S72.011A - Uns pecified intracapsular fracture of right femur, initial encounter for closed fracture Code(s): S72.011A - Unspecified intracapsular fracture of right femur, initial encounter for closed fracture Status: Acute Assessment and Plan: Secondary to fall as above * Appreciate orthopedic surgery consultation * She is POD#2 right hip bipolar arthroplasty performed today by Dr. Shelley * Appreciate orthopedic surgery consultation * Supportive care. Analgesics available as needed. * PT/OT. (3) Closed fracture of right distal radius: Qualifiers: Encounter type: initial encounter Fracture morphology: Colles' Qualified Code(s): S52.531A - Colles' fracture of right radius, initial encounter for closed fracture Code(s): S52.501A - Unspecified fracture of the lower end of right radius, initial encounter for closed fracture Status: Acute Assessment and Plan: Secondary to fall * Seen in consultation by Orthopedic surgery * Planning for conservative management with immobilization, ice, compression elevation * Continue fracture splint * Supportive care (4) End-stage renal disease on peritoneal dialysis: Code(s): N18.6 - End stage renal disease; Z99.2 - Dependence on renal dialysis Status: Acute Assessment and Plan: Patient maintained on peritoneal dialysis. * Nephrology following for continued dialysis during admission * Monitor renal function and electrolytes * Renal diet * Continue sodium bicarbonate tablets per Nephrology recommendations (5) Hypokalemia: Code(s): E87.6 - Hypokalemia Status: Acute Assessment and Plan: Resolved. Potassium 3.7 today * Supplement potassium as needed. Caution with supplementation given ESRD * Monitor BMP (6) Valvular heart disease: Code(s): I38 - Endocarditis, valve unspecified Status: Acute Assessment and Plan: Patient reports history of valvular disease that she cannot elaborate on * She is followed by a camera systems engineer at [facility] (name unknown) and records have been requested for review. * Echocardiogram moderate aortic stenosis moderate to severe mitral regurgitation * Appreciate cardiology consultation * Recommendations per Cardiology to avoid excessive fluid resuscitation perioperatively. (7) Orthostatic hypotension: Code(s): I95.1 - Orthostatic hypotension Status: Acute Assessment and Plan: An ongoing problem for this patient. * Continue midodrine. * Fall precautions implemented (8) Systolic CHF: Code(s): I50.20 - Unspecified systolic (congestive) heart failure Status: Acute Assessment and Plan: Echocardiogram revealed EF 20-25% with grade 2 diastolic dysfunction * Patient appears clinically compensated. * Appreciate cardiology consultation (9) Abnormal TSH: Code(s): R79.89 - Other specified abnormal findings of blood chemistry Status: Acute Assessment and Plan:
--- NOTE | 2021-08-11 15:40 | PM.IMPN ---
Progress Note: A&P Assessment and Plan (1) Fall from ground level: Code(s): W18.30XA - Fall on same level, unspecified, initial encounter Status: Acute Assessment and Plan: Mechanical fall in which she sustained a right hip fracture and right distal radius fracture. Patient does report frequent falls. Fall precautions Appreciate PT/OT evals (2) Closed subcapital fracture of neck of right femur: Qualifiers: Encounter type: initial encounter Qualified Code(s): S72.011A - Unspecified intracapsular fracture of right femur, initial encounter for closed fracture Code(s): S72.011A - Unspecified intracapsular fracture of right femur, initial encounter for closed fracture Status: Acute Assessment and Plan: Secondary to fall as above Appreciate orthopedic surgery consultation She is POD#2 right hip bipolar arthroplasty performed today by Dr. Shelley Appreciate orthopedic surgery consultation Supportive care. Analgesics available as needed. PT/OT. (3) Closed fracture of right distal radius: Qualifiers: Encounter type: initial encounter Fracture morphology: Colles' Qualified Code(s): S52.531A - Colles' fracture of right radius, initial encounter for closed fracture Code(s): S52.501A - Unspecified fracture of the lower end of right radius, initial encounter for closed fracture Status: Acute Assessment and Plan: Secondary to fall Seen in consultation by Orthopedic surgery Planning for conservative management with immobilization, ice, compression elevation Continue fracture splint Supportive care (4) End-stage renal disease on peritoneal dialysis: Code(s): N18.6 - End stage renal disease; Z99.2 - Dependence on renal dialysis Status: Acute Assessment and Plan: Patient maintained on peritoneal dialysis. Nephrology following for continued dialysis during admission Monitor renal function and electrolytes Renal diet Continue sodium bicarbonate tablets per Nephrology recommendations (5) Hypokalemia: Code(s): E87.6 - Hypokalemia Status: Acute Assessment and Plan: Resolved. Potassium 3.7 today Supplement potassium as needed. Caution with supplementation given ESRD Monitor BMP (6) Valvular heart disease: Code(s): I38 - Endocarditis, valve unspecified Status: Acute Assessment and Plan: Patient reports history of valvular disease that she cannot elaborate on She is followed by a licensed veterinary technician at [facility] (name unknown) and records have been requested for review. Echocardiogram moderate aortic stenosis moderate to severe mitral regurgitation Appreciate cardiology consultation Recommendations per Cardiology to avoid excessive fluid resuscitation perioperatively. (7) Orthostatic hypotension: Code(s): I95.1 - Orthostatic hypotension Status: Acute Assessment and Plan: An ongoing problem for this patient. Continue midodrine. Fall precautions implemented (8) Systolic CHF: Code(s): I50.20 - Unspecified systolic (congestive) heart failure Status: Acute Assessment and Plan: Echocardiogram revealed EF 20-25% with grade 2 diastolic dysfunction Patient appears clinically compensated. Appreciate cardiology consultation (9) Abnormal TSH: Code(s): R79.89 - Other specified abnormal findings of blood chemistry Status: Acute Assessment and Plan: TSH is elevated at 13.2 with normal T4 but low T3 at 0.56 Started levothyroxine 25 mg daily 08/09. Continue She will need outpatient reflex TSH in 4-6 weeks (10) Leukocytosis: Code(s): D72.829 - Elevated white blood cell count, unspecified Status: Acute Assessment and Plan: Elevated on presentation likely reactive from fall and improved. Now slightly elevated again, likely due to surgery. No signs/symptoms to suggest underlying infectious e
[2021-08-11] MEDS: EPOETIN ALFA-EPBX 10,000 UNITS/ML VIAL 10000 UNITS SUB-Q (18:00)
[2021-08-11 18:40] LABS: Sodium 128 mmol/L (137-145)
[2021-08-11 19:53] LABS: Hepatitis B Surface Antigen Negative (Negative)
[2021-08-11 20:23] LABS: Hepatitis C Virus Antibody Negative (Negative)
--- NOTE | 2021-08-11 21:04 | PC.NURSE ---
Dr Rajput notified pt BP 85/50. pt hypotensive at baseline, no new orders received. Check BP prior to any narcotic admin and hold if systolic <100.
[2021-08-11 21:42] LABS: Hepatitis B Surface Anti Res Positive
[2021-08-11] MEDS: SERTRALINE HCL 50 MG TABLET PO (22:17)
[2021-08-11] MEDS: HEPARIN SODIUM 5,000 UNITS/ML VIAL 5000 UNITS SUB-Q (22:17)
[2021-08-11] MEDS: GABAPENTIN 100 MG CAPSULE PO (22:17)
[2021-08-11] MEDS: ACETAMINOPHEN 325 MG TABLET 650 MG PO (22:28)
[2021-08-12] VITALS (13 sets, daily range): BP systolic 80–115; BP diastolic 42–61; PULSE 89–131; RESP 16–96; TEMP 35.8–36.8; O2SAT 90–97
[2021-08-12 05:51] LABS: Hematocrit 30.5 % (37.0-47.0); Hemoglobin 10.1 g/dL (12.0-15.0); Mean Corpuscular HGB Conc 33.1 g/dl (32-36); Mean Corpuscular Hemoglobin 32.2 pg (26-34); Mean Corpuscular Volume 97.1 fl (80-100); Mean Platelet Volume 10.6 fl (7.4-10.4); Platelet Count Result 198 k/mm3 (150-375); Red Blood Count 3.14 M/mm3 (4.2-5.4); Red Cell Distribution Width 16.6 % (11.5-14.5); White Blood Count 13.6 K/mm3 (4.5-10.0)
[2021-08-12 06:02] LABS: Albumin Level 2.4 g/dL (3.5-5.1); Anion Gap 16 mmol/L (8-16); Blood Urea Nitrogen 50 mg/dL (7-17); Calcium 8.5 mg/dL (8.4-10.2); Carbon Dioxide 22 mmol/L (22-30); Chloride 94 mmol/L (98-107); Estimated CRCL calculation 5 ml/min; Estimated Glomerular Filt Rate 5; Glucose 109 mg/dL (65-110); Phosphorus 6.6 mg/dL (2.5-4.5); Potassium 3.3 mmol/L (3.4-5.0); Sodium 132 mmol/L (137-145)
[2021-08-12] MEDS: LEVOTHYROXINE SODIUM 25 MCG TABLET PO (06:02)
[2021-08-12] MEDS: ACETAMINOPHEN 325 MG TABLET 650 MG PO (06:30)
[2021-08-12] MEDS: HEPARIN SODIUM 5,000 UNITS/ML VIAL 5000 UNITS SUB-Q (08:44)
[2021-08-12] MEDS: MIDODRINE HCL 10 MG TABLET PO ×3 (08:45→17:32)
[2021-08-12] MEDS: polyethylene glycoL 3350 17 GM POWD.PACK PO (08:46)
[2021-08-12] MEDS: PANTOPRAZOLE 40 MG TABLET PO (08:46)
[2021-08-12] MEDS: SENNA/DOCUSATE SODIUM TABLET 2 TAB PO (08:46)
[2021-08-12] MEDS: ASPIRIN 81 MG CHEWABLE TABLET PO (08:46)
[2021-08-12] MEDS: SODIUM BICARBONATE TAB 650 MG TABLET 1300 MG PO ×2 (08:47→17:33)
--- NOTE | 2021-08-12 09:23 | PM.PNORT ---
Progress Note: A&P Assessment and Plan (1) Closed subcapital fracture of neck of right femur: Qualifiers: Encounter type: initial encounter Qualified Code(s): S72.011A - Unspecified intracapsular fracture of right femur, initial encounter for closed fracture Code(s): S72.011A - Unspecified intracapsular fracture of right femur, initial encounter for closed fracture Status: Acute Assessment and Plan: POD #2: Right Hip Bipolar Continue PT/OT. WBAT. Walker. HIGH FALL RISK. Continue pain control. Ice hip. Protect skin. DVT prophylaxis with Heparin. SCDs. Incentive Spirometry Use reviewed. Monitor Dressing. Change prior to discharge. Bowel Regimen. Dispo: SNF pending progress with PT/OT and medical stability. Follow up scheduled. (2) Closed fracture of right distal radius: Qualifiers: Encounter type: initial encounter Fracture morphology: Colles' Qualified Code(s): S52.531A - Colles' fracture of right radius, initial encounter for closed fracture Code(s): S52.501A - Unspecified fracture of the lower end of right radius, initial encounter for closed fracture Status: Acute Assessment and Plan: Patient fit with velcro splint. Conservative treatment. Ice. Elevate. (3) ESRD on dialysis: Code(s): N18.6 - End stage renal disease; Z99.2 - Dependence on renal dialysis Status: Acute Assessment and Plan: On PD. Awaiting placement. (4) Orthostatic hypotension: Code(s): I95.1 - Orthostatic hypotension Status: Acute Assessment and Plan: Low BP this AM. Medicine following. Pain medication held until resolution. Nursing aware. Subjective Subjective Date/Time Seen: 08/12/21 09:23 Post Op day: 2 Interval history: POD #2: RT hip bipolar Patient with complaints of pain/calf spasms today. Unable to take pain medication due to low BP. Patient complaints of feeling tired. Review of Systems Review of Systems: All systems reviewed & are unremarkable except as noted in HPI and below Exam Const: General: comfortable and no acute distress Resp: Effort & Inspection: normal respiratory effort Cardio: Rate: regular rate Rhythm: regular rhythm GI: Inspection: non-distended Skin: General skin exam: normal color Other: Incision right hip c/d/i. Surrounding tissue without redness/warmth. Mild swelling consistent with recent surgery. No drainage. Neuro: Cognition (Neuro): normal cognition Speech: normal speech Extrem: Right lower extremity: normal to inspection, normal capillary refill, hip/thigh Details: tenderness Location: of the hip (Thigh soft ) Location: laterally and anteriorly, swelling Location: at the hip, abnormal ROM (limited consistent with recent surgery ) Details: pain with active ROM during and pain with passive ROM during and other (Incision c/d/i. ); no deformity and no unusual warmth, knee Details: normal to inspection; no tenderness and no swelling, lower leg (Negative Carlos's Sign ) Details: normal to inspection and no edema; no tenderness, ankle (+ankle dorsiflexion/plantarflexion) Details: normal to inspection and no edema; no tenderness, no swelling and no ecchymosis and foot Details: normal capillary refill, toes with normal ROM, vascular exam Details: dorsalis pedis pulse present and motor-sensory exam Details: light-touch normal; no tenderness Objective Data Vital Signs Vital Signs: Vital Signs - 24 hr 08/11/21 10:30 08/11/21 11:15 08/11/21 12:00 Temperature 36.3 C L Pulse Rate 88 91 Respiratory Rate 16 Blood Pressure 98/68 L Pulse Oximetry 98 Oxygen Delivery 08/11/21 14:20 08/11/21 16:00 08/11/21 18:15 Temperature 36.9 C 36.6 C Pulse Rate 61 77 56 L Respiratory Rate 14 14 Blood Pressure 102/68 97/62 L Pulse Oximetry 95 96 Oxygen Delivery 08/11/21 19:32 08/11/21 20:49 08/11/21 22:25 Temperature 37.2 C Pulse Rate 94 Respiratory Rate 18 Blood Pressure 85/5
--- NOTE | 2021-08-12 11:30 | PM.PNCARD ---
Progress Note: A&P Assessment and Plan (1) Hypertension: Code(s): I10 - Essential (primary) hypertension Status: Acute Assessment and Plan: Hypotensive at this point (2) Obstructive sleep apnea: Code(s): G47.33 - Obstructive sleep apnea (adult) (pediatric) Status: Acute (3) End-stage renal disease on peritoneal dialysis: Code(s): N18.6 - End stage renal disease; Z99.2 - Dependence on renal dialysis Status: Acute Assessment and Plan: On peritoneal dialysis (4) Closed subcapital fracture of neck of right femur: Qualifiers: Encounter type: initial encounter Qualified Code(s): S72.011A - Unspecified intracapsular fracture of right femur, initial encounter for closed fracture Code(s): S72.011A - Unspecified intracapsular fracture of right femur, initial encounter for closed fracture Status: Acute Assessment and Plan: Status post ORIF (5) Preoperative cardiovascular examination: Code(s): Z01.810 - Encounter for preprocedural cardiovascular examination Status: Acute (6) Valvular heart disease: Code(s): I38 - Endocarditis, valve unspecified Status: Acute Assessment and Plan: Patient has significant aortic stenosis and mitral regurgitation with severe cardiomyopathy. Will need to follow for need for inotrope therapy. At this point she is asymptomatic Subjective Date/time seen: 08/12/21 11:30 Interval history: POD #2: RT hip bipolar 66-year-old with hip fracture and cardiomyopathy Date of service 08/12/2021: No chest pain or shortness of breath. Hypotensive today. Review of Systems Review of Systems: All systems reviewed & are unremarkable except as noted in HPI and below Constitutional: Constitutional: Denies body ache(s) and Denies excessive sweating Eyes: Eyes: Denies blurry vision ENT: Reports as per HPI and Reports Normal hearing present Cardiovascular: Cardiovascular: Denies chest pain and Reports dyspnea Respiratory: Respiratory: Denies chest congestion and Reports dyspnea Gastrointestinal: Gastrointestinal: Denies no additional gastrointestinal complaints Genitourinary: Genitourinary: Denies hematuria Musculoskeletal: Musculoskeletal: Denies abnormal gait and Denies back pain Integumentary/Breasts: Skin/Breast: Denies breast pain Neurologic: Reports Normal hearing present and Denies abnormal gait Psychiatric: Psychiatric: Denies anxiety Endocrine: Endocrine: Denies excessive sweating Hematologic/Lymphatic: Hematologic/Lymphatic: Denies easy bleeding Allergic/Immunologic: Allergic/Immunologic: Denies GI upset with certain foods Exam Narrative: Awake alert oriented appears to be in no acute distress. Appears stated age Const: General: comfortable; No in distress HENMT: General nose exam: Normal nares present Eyes: Sclera: sclerae normal Neck: Neck: supple and no JVD Chest: Other: No reproducible chest wall pain to palpation Resp: Effort & Inspection: normal respiratory effort Cardio: Rate: regular rate Heart sounds: Murmur heart sound present Other: 2-3/6 systolic ejection murmur at apex GI: Auscultation: normal bowel sounds Skin: General skin exam: normal color and no rashes or lesions noted Neuro: Cranial nerves: Yes Normal hearing present Speech: normal speech Sensory Exam: normal sensation Extrem: General: normal to inspection and edema Psych: Mental Status: mental status grossly normal Objective Data Vital Signs Vital Signs: Vital Signs - 24 hr 08/11/21 12:00 08/11/21 14:20 08/11/21 16:00 Temperature 36.9 C Pulse Rate 91 61 77 Respiratory Rate 14 Blood Pressure 102/68 Pulse Oximetry 95 Oxygen Delivery 08/11/21 18:15 08/11/21 19:32 08/11/21 20:49 Temperature 36.6 C 37.2 C Pulse Rate 56 L 94 Respiratory Rate 14 18 Blood Pressure 97/62 L 85/50 L Pulse Oximetry 96 95 94 Oxygen Delivery Room Air 08/11/21
--- NOTE | 2021-08-12 13:14 | PC.NURSE ---
is taking gold rings home with him today
--- NOTE | 2021-08-12 13:50 | PCOTNOTE ---
Attempted to see pt. for occupational therapy treatment, per nursing hold therapy for now, pt. just returned to bed due to hypotension with BP 80/40. Will follow up.
--- NOTE | 2021-08-12 14:56 | PM.PNNEP ---
Progress Note: A&P Additional Plan 1. Ruby has end-stage renal disease. She gets peritoneal dialysis. She uses yellow bags. Will continue this. her blood pressure is a little bit low. She is on yellow bags so not much fluid is being removed. Her creatinine and BUN are both improving Day by day. Her potassium is okay. Her bicarbonate level is improved. 2. hypertension no longer an issue 3. orthostatic hypotension blood pressure drops with standing she says. We can not really test this not because of her broken hip. her cortisol level was high so no need to start her on prednisone. 4. sleep apnea She does not use a CPAP machine since she lost weight. 5. pre diabetes Sugars good at 135 this morning 6. valvular heart disease . She has multiple issues including moderate aortic stenosis, moderate to severe mitral regurgitation, moderate pulmonary hypertension, a left ventricular ejection fraction of only 20-25%, and severely enlarged LV chamber. She also has grade 2 diastolic dysfunction. Cardiology is seeing the patient. 7. fractured right hip She will be seen by Orthopedics. The patient probably has soft bones between the steroids and the renal osteodystrophy. 8. GERD she is on pantoprazole 9. anemia hemoglobin is down to 10.8. will continue EPO. 10. renal osteodystrophy Phosphorus level is very high. She takes sevelamer at home. Subjective Date/time seen: 08/12/21 14:56 Interval history: Patient feels about the same. The patient is on peritoneal dialysis. She is tolerating this well. Blood pressure is a little bit soft but I think that is more to do with her heart than volume status. Were not taking much fluid off at all and she is taking p.o. in. I will try a last fill and see if he resolves that to keep from removing any fluid at all. Her blood pressure is a little bit soft. She is on midodrine 3 times a day. Exam Narrative: WDWN in NAD skin no rash head ncat lungs clear bilateral cor reg no rub or gallop abd BS+ nontender and soft ext no edema. Objective Data Vital Signs Vital Signs: Vital Signs - 24 hr 08/11/21 16:00 08/11/21 18:15 08/11/21 19:32 Temperature 36.6 C 37.2 C Pulse Rate 77 56 L 94 Respiratory Rate 14 18 Blood Pressure 97/62 L 85/50 L Pulse Oximetry 96 95 Oxygen Delivery 08/11/21 20:49 08/11/21 22:25 08/11/21 23:53 Temperature 36.1 C L Pulse Rate 108 H Respiratory Rate 18 Blood Pressure 90/50 L 88/60 L Pulse Oximetry 94 93 Oxygen Delivery Room Air 08/12/21 03:41 08/11/21 20:00 08/12/21 00:00 Temperature 35.8 C L Pulse Rate 94 95 102 H Respiratory Rate 16 Blood Pressure 86/53 L Pulse Oximetry 91 Oxygen Delivery 08/12/21 04:00 08/12/21 07:30 08/12/21 09:57 Temperature 36.1 C L Pulse Rate 101 H 100 Respiratory Rate 96 H Blood Pressure 88/61 L 90/60 L Pulse Oximetry 96 Oxygen Delivery 08/12/21 07:30 08/12/21 14:19 Temperature 36.2 C L Pulse Rate 93 Respiratory Rate 20 Blood Pressure 80/42 L Pulse Oximetry 94 Oxygen Delivery Room Air Intake/Output Intake/Output: Intake & Output 08/09/21 08/10/21 08/11/21 08/12/21 23:59 23:59 23:59 23:59 Intake Total 1440 1080 100 160 Output Total 0 0 441 Balance 1440 1080 100 -281 Meds/Results Medications: Active Medications Generic Name Dose Route Start Last Admin Trade Name Freq PRN Reason Stop Dose Admin Acetaminophen 650 mg 08/09/21 16:31 08/12/21 06:30 Acetaminophen 325 Mg Tablet PO 650 mg Q4H PRN Administration Pain 1-3 Hydrocodone Bitart/Acetaminophen 1 tab 08/10/21 11:13 08/11/21 18:53 Hydrocodone/Acetaminophen (*Crx) 5-325 Mg Tablet PO 1 tab Q3H PRN Administration Pain Rated 4-6 Albuterol 1 puff 08/09/21 01:09 Albuterol Sulfate (*Sp) Aerosol 1 Puff INHALATION BID PRN Shortness Of Breath Aspirin 81 mg 08/11/21 08:00 08/12/21 08:46 Aspirin 81
--- NOTE | 2021-08-12 15:26 | PCPTNOTE ---
Per RN advised not to see patient for second PT session this afternoon due to patient's decrease in blood pressure while patient was sitting up in chair.
--- NOTE | 2021-08-12 15:48 | P.PNIM_ITS ---
Progress Note: A&P Assessment and Plan (1) Fall from ground level: Code(s): W18.30XA - Fall on same level, unspecified, initial encounter Status: Acute Assessment and Plan: Mechanical fall in which she sustained a right hip fracture and right distal radius fracture. * Patient does report frequent falls. * Fall precautions * Appreciate PT/OT evals (2) Closed subcapital fracture of neck of right femur: Qualifiers: Encounter type: initial encounter Qualified Code(s): S72.011A - Uns pecified intracapsular fracture of right femur, initial encounter for closed fracture Code(s): S72.011A - Unspecified intracapsular fracture of right femur, initial encounter for closed fracture Status: Acute Assessment and Plan: Secondary to fall as above * Appreciate orthopedic surgery consultation * She is POD#2 right hip bipolar arthroplasty by Dr. Shelley * Appreciate orthopedic surgery consultation * Supportive care. Analgesics available as needed. * PT/OT. (3) Closed fracture of right distal radius: Qualifiers: Encounter type: initial encounter Fracture morphology: Colles' Qualified Code(s): S52.531A - Colles' fracture of right radius, initial encounter for closed fracture Code(s): S52.501A - Unspecified fracture of the lower end of right radius, initial encounter for closed fracture Status: Acute Assessment and Plan: Secondary to fall * Seen in consultation by Orthopedic surgery * Planning for conservative management with immobilization, ice, compression elevation * Continue fracture splint * Supportive care (4) End-stage renal disease on peritoneal dialysis: Code(s): N18.6 - End stage renal disease; Z99.2 - Dependence on renal dialysis Status: Acute Assessment and Plan: Patient maintained on peritoneal dialysis. * Nephrology following for continued dialysis during admission * Monitor renal function and electrolytes * Renal diet * Continue sodium bicarbonate tablets per Nephrology recommendations (5) Hypokalemia: Code(s): E87.6 - Hypokalemia Status: Acute Assessment and Plan: Resolved. Potassium 3.3 today * 20 mEq PO KCl * Supplement potassium as needed. Caution with supplementation given ESRD * Monitor BMP (6) Valvular heart disease: Code(s): I38 - Endocarditis, valve unspecified Status: Acute Assessment and Plan: Patient reports history of valvular disease that she cannot elaborate on * She is followed by a engineer steam at [facility] (name unknown) and records have been requested for review. * Echocardiogram showed moderate aortic stenosis moderate to severe mitral regurgitation * Appreciate cardiology consultation (7) Orthostatic hypotension: Code(s): I95.1 - Orthostatic hypotension Status: Acute Assessment and Plan: An ongoing problem for this patient. * Continue midodrine. * Fall precautions implemented * BP has been low in the 80s/90s systolic. She is asymptomatic. Monitor trends (8) Systolic CHF: Code(s): I50.20 - Unspecified systolic (congestive) heart failure Status: Acute Assessment and Plan: Echocardiogram revealed EF 20-25% with grade 2 diastolic dysfunction * Patient appears clinically compensated. * Appreciate cardiology consultation * Per cardiology will need inotrope therapy (9) Abnormal TSH: Code(s): R79.89 - Other specified abnormal findings of blood chemistry Status
--- NOTE | 2021-08-12 16:08 | PCSTNOTE ---
The patient complained of pain throughout therapist attempts at session; nurse aware of pain. Skilled session not able to be completed.
[2021-08-12] MEDS: POTASSIUM CHLORIDE 20 MEQ TABLET PO (17:31)
[2021-08-12] MEDS: EPOETIN ALFA-EPBX 10,000 UNITS/ML VIAL 10000 UNITS SUB-Q (17:32)
[2021-08-12] MEDS: GABAPENTIN 100 MG CAPSULE PO (21:01)
[2021-08-12] MEDS: SERTRALINE HCL 50 MG TABLET PO (21:01)
[2021-08-13] VITALS (12 sets, daily range): BP systolic 90–105; BP diastolic 61–66; PULSE 75–95; RESP 16–20; TEMP 36.2–36.9; O2SAT 94–100
[2021-08-13 05:36] LABS: Basophils Percent Auto 0.1 % (0.2-1.2); Eosinophils Absolute Auto 0.1 K/mm3 (0-0.3); Eosinophils Percent Auto 0.5 % (0-4.4); Hematocrit 33.5 % (37.0-47.0); Hemoglobin 10.9 g/dL (12.0-15.0); Immature Granulocyte Absolute 0.07 K/mm3 (0.00-0.031); Immature Granulocyte Percent A 0.5 % (0-0.5); Lymphocytes Percent Auto 12.9 % (18.3-44.2); Mean Corpuscular HGB Conc 32.5 g/dl (32-36); Mean Corpuscular Hemoglobin 31.7 pg (26-34); Mean Corpuscular Volume 97.4 fl (80-100); Mean Platelet Volume 10.7 fl (7.4-10.4); Monocytes Absolute Auto 0.9 K/mm3 (0.1-0.6); Monocytes Percent Auto 6.7 % (2.6-8.5); Neutrophils Absolute Auto 11.1 K/mm3 (1.3-6.7); Neutrophils Percent Auto 79.3 % (45.5-73.1); Nucleated Red Blood Cells Absolute Auto 0.1 K/mm3 (0.0-0.012); Nucleated Red Blood Cells Perc 0.5 % (0.0-0.2); Platelet Count Result 207 k/mm3 (150-375); Red Blood Count 3.44 M/mm3 (4.2-5.4); Red Cell Distribution Width 16.6 % (11.5-14.5)
[2021-08-13] MEDS: LEVOTHYROXINE SODIUM 25 MCG TABLET PO (05:45)
[2021-08-13 05:54] LABS: Albumin Level 2.7 g/dL (3.5-5.1); Anion Gap 15 mmol/L (8-16); Blood Urea Nitrogen 55 mg/dL (7-17); Calcium 8.2 mg/dL (8.4-10.2); Carbon Dioxide 23 mmol/L (22-30); Chloride 94 mmol/L (98-107); Estimated CRCL calculation 5 ml/min; Estimated Glomerular Filt Rate 5; Glucose 125 mg/dL (65-110); Magnesium 1.9 mg/dL (1.6-2.3); Phosphorus 6.5 mg/dL (2.5-4.5); Sodium 132 mmol/L (137-145)
--- NOTE | 2021-08-13 06:05 | PC.NURSE ---
Pt refusing heparin injections and SCDs, Dr Beard notified.
[2021-08-13] MEDS: ASPIRIN 81 MG CHEWABLE TABLET PO (08:08)
[2021-08-13] MEDS: MIDODRINE HCL 10 MG TABLET PO ×3 (08:08→16:42)
[2021-08-13] MEDS: SODIUM BICARBONATE TAB 650 MG TABLET 1300 MG PO ×2 (08:08→16:42)
[2021-08-13] MEDS: PANTOPRAZOLE 40 MG TABLET PO (08:08)
[2021-08-13] MEDS: SENNA/DOCUSATE SODIUM TABLET 2 TAB PO (08:08)
[2021-08-13] MEDS: polyethylene glycoL 3350 17 GM POWD.PACK PO (08:08)
--- NOTE | 2021-08-13 08:39 | PM.PNCARD ---
Progress Note: A&P Assessment and Plan (1) Hypertension: Code(s): I10 - Essential (primary) hypertension Status: Acute Assessment and Plan: Hypotensive at this point (2) Obstructive sleep apnea: Code(s): G47.33 - Obstructive sleep apnea (adult) (pediatric) Status: Acute (3) End-stage renal disease on peritoneal dialysis: Code(s): N18.6 - End stage renal disease; Z99.2 - Dependence on renal dialysis Status: Acute Assessment and Plan: On peritoneal dialysis (4) Closed subcapital fracture of neck of right femur: Qualifiers: Encounter type: initial encounter Qualified Code(s): S72.011A - Unspecified intracapsular fracture of right femur, initial encounter for closed fracture Code(s): S72.011A - Unspecified intracapsular fracture of right femur, initial encounter for closed fracture Status: Acute Assessment and Plan: Status post ORIF (5) Valvular heart disease: Code(s): I38 - Endocarditis, valve unspecified Status: Acute Assessment and Plan: Patient has significant aortic stenosis and mitral regurgitation with severe cardiomyopathy. Will need to follow for need for inotrope therapy. At this point she is asymptomatic. She thinks she follows with Dr. Mock at [facility] Plan Ideally would like to add beta-deanna, Entresto or demario/Arb in standard heart failure regimen but BP too low at this point Subjective Date/time seen: 08/13/21 08:39 Interval history: POD #2: RT hip bipolar 66-year-old with hip fracture and cardiomyopathy Date of service 08/13/2021: No chest pain or shortness of breath. BP is low but stable. She states that she feels little better today Review of Systems Review of Systems: All systems reviewed & are unremarkable except as noted in HPI and below Constitutional: Constitutional: Denies body ache(s) and Denies excessive sweating Eyes: Eyes: Denies blurry vision ENT: Reports as per HPI and Reports Normal hearing present Cardiovascular: Cardiovascular: Denies chest pain and Reports dyspnea Respiratory: Respiratory: Denies chest congestion and Reports dyspnea Gastrointestinal: Gastrointestinal: Denies no additional gastrointestinal complaints Genitourinary: Genitourinary: Denies hematuria Musculoskeletal: Musculoskeletal: Denies abnormal gait and Denies back pain Integumentary/Breasts: Skin/Breast: Denies breast pain Neurologic: Reports Normal hearing present and Denies abnormal gait Psychiatric: Psychiatric: Denies anxiety Endocrine: Endocrine: Denies excessive sweating Hematologic/Lymphatic: Hematologic/Lymphatic: Denies easy bleeding Allergic/Immunologic: Allergic/Immunologic: Denies GI upset with certain foods Exam Narrative: Awake alert oriented appears to be in no acute distress. Appears stated age Const: General: comfortable; No in distress HENMT: General nose exam: Normal nares present Eyes: Sclera: sclerae normal Neck: Neck: supple and no JVD Chest: Other: No reproducible chest wall pain to palpation Resp: Effort & Inspection: normal respiratory effort Cardio: Rate: regular rate Heart sounds: Murmur heart sound present Other: 2-3/6 systolic ejection murmur at apex GI: Auscultation: normal bowel sounds Skin: General skin exam: normal color and no rashes or lesions noted Neuro: Cranial nerves: Yes Normal hearing present Speech: normal speech Sensory Exam: normal sensation Extrem: General: normal to inspection and edema Psych: Mental Status: mental status grossly normal Objective Data Vital Signs Vital Signs: Vital Signs - 24 hr 08/12/21 09:57 08/12/21 14:19 08/12/21 12:00 Temperature 36.1 C L 36.2 C L Pulse Rate 100 93 99 Respiratory Rate 96 H 20 Blood Pressure 90/60 L 80/42 L Pulse Oximetry 96 94 08/12/21 16:00 08/12/21 18:09 08/12/21 19:44 Temperature 36.8 C 36.6 C Pulse Rate 99 110 H 99 Respiratory Rate 20 18 Blood Pr
--- NOTE | 2021-08-13 09:08 | PM.PNNEP ---
Progress Note: A&P Additional Plan 1. Ruby has end-stage renal disease. She gets peritoneal dialysis. She uses yellow bags. She is on yellow bags so not much fluid is being removed. Her creatinine seems to have stabilized. Her potassium is okay. Her bicarbonate level is improved. 2. hypertension no longer an issue 3. orthostatic hypotension. She is on midodrine. She has no edema. We are not removing much fluid with dialysis. She is also not eating. 4. sleep apnea She does not use a CPAP machine since she lost weight. 5. pre diabetes Sugars good at 135 this morning 6. valvular heart disease . moderate aortic stenosis, moderate to severe mitral regurgitation, moderate pulmonary hypertension, a left ventricular ejection fraction of only 20-25%, and severely enlarged LV chamber. She also has grade 2 diastolic dysfunction. Cardiology is seeing the patient. 7. fractured right hip She will be seen by Orthopedics. The patient probably has soft bones between the steroids and the renal osteodystrophy. 8. GERD she is on pantoprazole 9. anemia hemoglobin is down to 10.8. will continue EPO. 10. renal osteodystrophy Phosphorus level is very high. She takes sevelamer at home. She has had chronic hyperphosphatemia she says. Will check a PTH. I am a little worried about calciphylaxis in her calves. I will check a bone scan Subjective Date/time seen: 08/13/21 09:08 Interval history: Patient feels about the same. The patient has lots of pain in her calves. Her calves are very tender. Her blood pressure is a little bit soft. She is on midodrine 3 times a day. Exam Narrative: WDWN in NAD skin no rash head ncat lungs clear bilateral cor reg no rub or gallop abd BS+ nontender and soft ext trace edema with tenderness along the calves. Seems somewhat indurated. Objective Data Vital Signs Vital Signs: Vital Signs - 24 hr 08/12/21 09:57 08/12/21 14:19 08/12/21 12:00 Temperature 36.1 C L 36.2 C L Pulse Rate 100 93 99 Respiratory Rate 96 H 20 Blood Pressure 90/60 L 80/42 L Pulse Oximetry 96 94 08/12/21 16:00 08/12/21 18:09 08/12/21 19:44 Temperature 36.8 C 36.6 C Pulse Rate 99 110 H 99 Respiratory Rate 20 18 Blood Pressure 115/54 L 91/57 L Pulse Oximetry 93 90 08/12/21 23:52 08/12/21 20:00 08/13/21 00:00 Temperature 36.1 C L Pulse Rate 91 89 88 Respiratory Rate 18 Blood Pressure 97/60 L Pulse Oximetry 97 08/13/21 04:00 08/13/21 05:02 Temperature 36.2 C L Pulse Rate 87 92 Respiratory Rate 18 Blood Pressure 95/66 L Pulse Oximetry 100 Intake/Output Intake/Output: Intake & Output 08/10/21 08/11/21 08/12/21 08/13/21 23:59 23:59 23:59 23:59 Intake Total 1080 100 310 0 Output Total 0 0 441 0 Balance 1080 100 -131 0 Meds/Results Medications: Active Medications Generic Name Dose Route Start Last Admin Trade Name Freq PRN Reason Stop Dose Admin Acetaminophen 650 mg 08/09/21 16:31 08/12/21 06:30 Acetaminophen 325 Mg Tablet PO 650 mg Q4H PRN Administration Pain 1-3 Hydrocodone Bitart/Acetaminophen 1 tab 08/10/21 11:13 08/11/21 18:53 Hydrocodone/Acetaminophen (*Crx) 5-325 Mg Tablet PO 1 tab Q3H PRN Administration Pain Rated 4-6 Albuterol 1 puff 08/09/21 01:09 Albuterol Sulfate (*Sp) Aerosol 1 Puff INHALATION BID PRN Shortness Of Breath Aspirin 81 mg 08/11/21 08:00 08/13/21 08:08 Aspirin 81 Mg Chewable Tablet PO 81 mg DAILY@0800 [facility] Administration Bisacodyl 10 mg 08/10/21 11:13 Bisacodyl 10 Mg Suppository RECTAL DAILY PRN Constipation Diazepam 5 mg 08/10/21 11:13 08/10/21 23:20 Diazepam (*Crx) 5 Mg Tablet PO 5 mg Q8H PRN Administration Muscle Spasm Epoetin Dov-epbx 10,000 units 08/12/21 17:00 08/12/21 17:32 Epoetin Dov-Epbx 10,000 Units/Ml Vial SUB-Q 10,000 units TuThSa@1700 [facility] Administration Gabapentin 100 mg 07/30
[2021-08-13 09:49] LABS: Parathyroid Intact 198.5 pg/mL (7.5-53.5)
[2021-08-13 11:29] LABS: Hepatitis B Core Ab Total Reactive (Nonreactive)
--- NOTE | 2021-08-13 11:35 | PCOTNOTE ---
Attempted to see patient this am, however patient unable to be seen due to decreased BP. Pt unable to tolerate physical therapy this am, completing minimal exercises in bed within patient tolerance.
[2021-08-13] MEDS: ACETAMINOPHEN 325 MG TABLET 650 MG PO (11:45)
[2021-08-13] MEDS: SEVELAMER CARBONATE 800 MG TABLET 3200 MG PO ×2 (11:45→16:45)
--- NOTE | 2021-08-13 12:19 | PM.PNORT ---
Progress Note: A&P Assessment and Plan (1) Closed subcapital fracture of neck of right femur: Qualifiers: Encounter type: initial encounter Qualified Code(s): S72.011A - Unspecified intracapsular fracture of right femur, initial encounter for closed fracture Code(s): S72.011A - Unspecified intracapsular fracture of right femur, initial encounter for closed fracture Status: Acute Assessment and Plan: POD #3: Right Hip Bipolar Continue PT/OT. WBAT. Walker. HIGH FALL RISK. Continue pain control. Ice hip. Protect skin. DVT prophylaxis with Heparin. Unsure if patient gets heparin through her peritoneal dialysis exchange. SCDs. Incentive Spirometry Use reviewed. Monitor Dressing. Change prior to discharge. Bowel Regimen. Dispo: SNF pending progress with PT/OT and medical stability. Follow up scheduled. (2) Closed fracture of right distal radius: Qualifiers: Encounter type: initial encounter Fracture morphology: Colles' Qualified Code(s): S52.531A - Colles' fracture of right radius, initial encounter for closed fracture Code(s): S52.501A - Unspecified fracture of the lower end of right radius, initial encounter for closed fracture Status: Acute Assessment and Plan: Patient fit with velcro splint. Conservative treatment. Ice. Elevate. Subjective Subjective Date/Time Seen: 08/13/21 12:19 Post Op day: 3 Principal diagnosis: Right hip fracture Interval history: pain right hip with movement and transfers. Better with pain medication. No new complaints. Exam Const: General: comfortable and no acute distress Resp: Effort & Inspection: normal respiratory effort Cardio: Rate: regular rate Rhythm: regular rhythm GI: Inspection: non-distended Skin: General skin exam: normal color Other: Incision right hip c/d/i. Surrounding tissue without redness/warmth. Mild swelling consistent with recent surgery. No drainage. Neuro: Cognition (Neuro): normal cognition Speech: normal speech Extrem: Right lower extremity: normal to inspection, normal capillary refill, hip/thigh Details: tenderness Location: of the hip (Thigh soft ) Location: laterally and anteriorly, swelling Location: at the hip, abnormal ROM (limited consistent with recent surgery ) Details: pain with active ROM during and pain with passive ROM during and other (Incision clean and dry); no deformity and no unusual warmth, knee Details: normal to inspection; no tenderness and no swelling, lower leg (Negative Carlos's Sign ) Details: normal to inspection and no edema; no tenderness, ankle (+ankle dorsiflexion/plantarflexion) Details: normal to inspection and no edema; no tenderness, no swelling and no ecchymosis and foot Details: normal capillary refill, toes with normal ROM, vascular exam Details: dorsalis pedis pulse present and motor-sensory exam Details: light-touch normal; no tenderness Objective Data Vital Signs Vital Signs: Vital Signs - 24 hr 08/12/21 14:19 08/12/21 16:00 08/12/21 18:09 Temperature 97.1 F L 98.2 F Pulse Rate 93 99 110 H Respiratory Rate 20 20 Blood Pressure 80/42 L 115/54 L Pulse Oximetry 94 93 Oxygen Delivery 08/12/21 19:44 08/12/21 23:52 08/12/21 20:00 Temperature 97.9 F 97 F L Pulse Rate 99 91 89 Respiratory Rate 18 18 Blood Pressure 91/57 L 97/60 L Pulse Oximetry 90 97 Oxygen Delivery 08/13/21 00:00 08/13/21 04:00 08/13/21 05:02 Temperature 97.2 F L Pulse Rate 88 87 92 Respiratory Rate 18 Blood Pressure 95/66 L Pulse Oximetry 100 Oxygen Delivery 08/13/21 08:00 08/13/21 08:00 08/13/21 09:55 Temperature Pulse Rate 89 Respiratory Rate Blood Pressure Pulse Oximetry 94 Oxygen Delivery Room Air Room Air 08/13/21 10:30 08/13/21 12:00 Temperature 98.4 F Pulse Rate 87 95 Respiratory Rate 20 Blood Pressure 98/65 L Pulse Oximetry 96 Oxygen Delivery Intake/Output Intake/Output: Intake & Outp
--- NOTE | 2021-08-13 12:55 | PM.IMPN ---
Progress Note: A&P Assessment and Plan (1) Fall from ground level: Code(s): W18.30XA - Fall on same level, unspecified, initial encounter Status: Acute Assessment and Plan: Mechanical fall in which she sustained a right hip fracture and right distal radius fracture. Patient does report frequent falls. Fall precautions Appreciate PT/OT evals (2) Closed subcapital fracture of neck of right femur: Qualifiers: Encounter type: initial encounter Qualified Code(s): S72.011A - Unspecified intracapsular fracture of right femur, initial encounter for closed fracture Code(s): S72.011A - Unspecified intracapsular fracture of right femur, initial encounter for closed fracture Status: Acute Assessment and Plan: Secondary to fall as above Appreciate orthopedic surgery consultation She is POD#2 right hip bipolar arthroplasty by Dr. Shelley Appreciate orthopedic surgery consultation Supportive care. Analgesics available as needed. PT/OT. (3) Closed fracture of right distal radius: Qualifiers: Encounter type: initial encounter Fracture morphology: Colles' Qualified Code(s): S52.531A - Colles' fracture of right radius, initial encounter for closed fracture Code(s): S52.501A - Unspecified fracture of the lower end of right radius, initial encounter for closed fracture Status: Acute Assessment and Plan: Secondary to fall Seen in consultation by Orthopedic surgery Planning for conservative management with immobilization, ice, compression elevation Continue fracture splint Supportive care (4) End-stage renal disease on peritoneal dialysis: Code(s): N18.6 - End stage renal disease; Z99.2 - Dependence on renal dialysis Status: Acute Assessment and Plan: Patient maintained on peritoneal dialysis. Nephrology following for continued dialysis during admission Monitor renal function and electrolytes Renal diet Continue sodium bicarbonate tablets per Nephrology recommendations (5) Hypokalemia: Code(s): E87.6 - Hypokalemia Status: Acute Assessment and Plan: Resolved. Potassium 3.3 today 20 mEq PO KCl Supplement potassium as needed. Caution with supplementation given ESRD Monitor BMP (6) Valvular heart disease: Code(s): I38 - Endocarditis, valve unspecified Status: Acute Assessment and Plan: Patient reports history of valvular disease that she cannot elaborate on She is followed by a security sales manager at [facility] (name unknown) and records have been requested for review. Echocardiogram showed moderate aortic stenosis moderate to severe mitral regurgitation Appreciate cardiology consultation (7) Orthostatic hypotension: Code(s): I95.1 - Orthostatic hypotension Status: Acute Assessment and Plan: An ongoing problem for this patient. Continue midodrine. Fall precautions implemented BP has been low in the 80s/90s systolic. She is asymptomatic. Monitor trends (8) Systolic CHF: Code(s): I50.20 - Unspecified systolic (congestive) heart failure Status: Acute Assessment and Plan: Echocardiogram revealed EF 20-25% with grade 2 diastolic dysfunction Patient appears clinically compensated. Appreciate cardiology consultation Per cardiology will need inotrope therapy (9) Abnormal TSH: Code(s): R79.89 - Other specified abnormal findings of blood chemistry Status: Acute Assessment and Plan: TSH is elevated at 13.2 with normal T4 but low T3 at 0.56 Started levothyroxine 25 mg daily 08/09. Continue She will need outpatient reflex TSH in 4-6 weeks (10) Leukocytosis: Code(s): D72.829 - Elevated white blood cell count, unspecified Status: Acute Assessment and Plan: Elevated on presentation likely reactive from fall and improved then elevated again postoperatively. Downward trend today. Most
--- NOTE | 2021-08-13 13:19 | PCOTNOTE ---
Attempted to see patient this pm, however patient declined due to sporadic cramps in legs. Pt displayed frequent grimacing at this time.
[2021-08-13] MEDS: SERTRALINE HCL 50 MG TABLET PO (20:10)
[2021-08-13] MEDS: GENTAMICIN SULFATE 0.1% CR 15 GM TUBE 1 APPLIC TOPICAL (20:10)
[2021-08-13] MEDS: GABAPENTIN 100 MG CAPSULE PO (20:10)
[2021-08-13] MEDS: HEPARIN SODIUM 5,000 UNITS/ML VIAL 5000 UNITS SUB-Q (20:11)
[2021-08-14] VITALS (13 sets, daily range): BP systolic 94–105; BP diastolic 52–74; PULSE 64–108; RESP 12–16; TEMP 36.4–36.9; O2SAT 93–97
[2021-08-14] MEDS: LEVOTHYROXINE SODIUM 25 MCG TABLET PO (05:42)
[2021-08-14 05:45] LABS: Hematocrit 33.2 % (37.0-47.0); Hemoglobin 10.9 g/dL (12.0-15.0); Mean Corpuscular HGB Conc 32.8 g/dl (32-36); Mean Corpuscular Hemoglobin 32.3 pg (26-34); Mean Corpuscular Volume 98.5 fl (80-100); Mean Platelet Volume 10.7 fl (7.4-10.4); Platelet Count Result 212 k/mm3 (150-375); Red Blood Count 3.37 M/mm3 (4.2-5.4); White Blood Count 13.2 K/mm3 (4.5-10.0)
[2021-08-14 05:48] LABS: Albumin Level 2.6 g/dL (3.5-5.1); Anion Gap 15 mmol/L (8-16); Blood Urea Nitrogen 60 mg/dL (7-17); Calcium 8.3 mg/dL (8.4-10.2); Carbon Dioxide 24 mmol/L (22-30); Chloride 94 mmol/L (98-107); Estimated CRCL calculation 5 ml/min; Estimated Glomerular Filt Rate 5; Glucose 116 mg/dL (65-110); Phosphorus 6.6 mg/dL (2.5-4.5); Potassium 3.6 mmol/L (3.4-5.0); Sodium 133 mmol/L (137-145)
[2021-08-14] MEDS: SEVELAMER CARBONATE 800 MG TABLET 3200 MG PO ×3 (07:47→17:26)
[2021-08-14] MEDS: PANTOPRAZOLE 40 MG TABLET PO (07:48)
[2021-08-14] MEDS: HEPARIN SODIUM 5,000 UNITS/ML VIAL 5000 UNITS SUB-Q ×2 (07:48→20:09)
[2021-08-14] MEDS: ASPIRIN 81 MG CHEWABLE TABLET PO (07:48)
[2021-08-14] MEDS: SENNA/DOCUSATE SODIUM TABLET 2 TAB PO ×2 (07:48→17:25)
[2021-08-14] MEDS: polyethylene glycoL 3350 17 GM POWD.PACK PO (07:48)
[2021-08-14] MEDS: SODIUM BICARBONATE TAB 650 MG TABLET 1300 MG PO ×2 (07:49→17:24)
[2021-08-14] MEDS: MIDODRINE HCL 10 MG TABLET PO ×3 (07:49→17:25)
--- NOTE | 2021-08-14 08:16 | PCSTNOTE ---
Therapy treatment orders should have been entered on 08/11 however entered late. Verbal orders were received by Carli Hospitalist, on 08/11/21.
--- NOTE | 2021-08-14 08:50 | PCOTNOTE ---
Attempted to see patient this am, however patient having dialysis at this time.
--- NOTE | 2021-08-14 10:31 | PM.PNNEP ---
Progress Note: A&P Additional Plan 1. Ruby has end-stage renal disease. She gets peritoneal dialysis. She uses yellow bags. She is on yellow bags so not much fluid is being removed. Her creatinine seems to have stabilized. Her potassium is okay. Her bicarbonate level is improved. overall the patient is not getting very good dialysis with her peritoneal dialysis. I had a long discussion with her income tax consultant Dr Hernandez. this doctor and the patient have been talking at length about how she is under dialyzed. Some prescription changes would be made but then the patient decides not to do them. The patient herself admitted to me that she skips treatments at night often. I talked with the patient about how her numbers were very bad when she came into the hospital. Phosphorus was extremely high and her BUN and creatinine were extremely high as well. It seems like peritoneal dialysis is not working for this patient. The 2nd issue is that she has to go to a rehab facility and nobody in the [facility] area will do peritoneal dialysis as an outpatient for rehab. So she would have to switch to hemodialysis to do this. I and the mental health case manager have discussed this with her in the past few days and she had refused hemodialysis altogether. I talked with the patient about this refusal and she says that she does not like getting stuck and she is afraid her veins will not tolerate a fistula. I told her that she could not go to a rehab facility on peritoneal dialysis and could not stay in the hospital shelter of course so she would have to make the decision of whether she does hemodialysis plus rehab or goes home on peritoneal dialysis. Her is weak and I do not think she could manage at home at this point. Another option of course would be hospice but the patient does not want to give up. After further lengthy discussion the patient decided to agree to hemodialysis. A 3rd issue here is that the patient has an extremely high phosphorus. Her calves are very tender and somewhat indurated and this looks like calciphylaxis. This happens in the calves often because the hyperphosphatemia causes microvascular obstruction and any pressure are not certain parts of the body subject to this will cause ischemia and so she might have muscle damage from this. I told her that she needed a bone scan just to see if this lights up which would be 1 indication of calciphylaxis. If this is negative then she might need a biopsy. Or week ago right to biopsy but the patient does not want to do this. The patient refused the bone scan yesterday, but agrees to a bone scan today. I will consult surgery to place a PermCath and also reorder the bone scan and we will proceed with hemodialysis tomorrow or Wednesday depending on when the catheter goes in. 2. hypertension no longer an issue 3. orthostatic hypotension. She is on midodrine. She has no edema. We are not removing much fluid with dialysis. She is also not eating. 4. sleep apnea She does not use a CPAP machine since she lost weight. 5. pre diabetes Sugars good at 135 this morning 6. valvular heart disease . moderate aortic stenosis, moderate to severe mitral regurgitation, moderate pulmonary hypertension, a left ventricular ejection fraction of only 20-25%, and severely enlarged LV chamber. She also has grade 2 diastolic dysfunction. Cardiology is seeing the patient. 7. fractured right hip Getting supportive care 8. GERD she is on pantoprazole 9. anemia hemoglobin is stable in the 10s. will continue EPO. 10. renal osteodystrophy Phosphorus level was very high on admission. this has come down to 6.6. Will reorder the bone scan long discussion with the patient and also with Dr. Hernandez as above. 40 minutes were spent in discussions apart from clinical activity. Subjective Date/time seen: 08/14/21 10:31 Interval history: patient feels a little bit better today. Brittany
--- NOTE | 2021-08-14 11:14 | PM.PNCARD ---
Progress Note: A&P Assessment and Plan (1) Hypertension: Code(s): I10 - Essential (primary) hypertension Status: Acute Assessment and Plan: Hypotensive at this point but asymptomatic (2) Obstructive sleep apnea: Code(s): G47.33 - Obstructive sleep apnea (adult) (pediatric) Status: Acute (3) End-stage renal disease on peritoneal dialysis: Code(s): N18.6 - End stage renal disease; Z99.2 - Dependence on renal dialysis Status: Acute Assessment and Plan: On peritoneal dialysis (4) Closed subcapital fracture of neck of right femur: Qualifiers: Encounter type: initial encounter Qualified Code(s): S72.011A - Unspecified intracapsular fracture of right femur, initial encounter for closed fracture Code(s): S72.011A - Unspecified intracapsular fracture of right femur, initial encounter for closed fracture Status: Acute Assessment and Plan: Status post ORIF (5) Valvular heart disease: Code(s): I38 - Endocarditis, valve unspecified Status: Acute Assessment and Plan: Patient has significant aortic stenosis and mitral regurgitation with severe cardiomyopathy. At this point she is asymptomatic. She thinks she follows with Dr. Mock at [facility] Plan Ideally would like to add beta-deanna, Entresto or demario/Arb in standard heart failure regimen but BP too low at this point Subjective Date/time seen: 08/14/21 11:14 Interval history: POD #3: RT hip bipolar 66-year-old with hip fracture and cardiomyopathy Date of service 08/14/2021: No chest pain or shortness of breath. She states that she feels little better today Review of Systems Review of Systems: All systems reviewed & are unremarkable except as noted in HPI and below Constitutional: Constitutional: Denies body ache(s) and Denies excessive sweating Eyes: Eyes: Denies blurry vision ENT: Reports as per HPI and Reports Normal hearing present Cardiovascular: Cardiovascular: Denies chest pain and Reports dyspnea Respiratory: Respiratory: Denies chest congestion and Reports dyspnea Gastrointestinal: Gastrointestinal: Denies no additional gastrointestinal complaints Genitourinary: Genitourinary: Denies hematuria Musculoskeletal: Musculoskeletal: Denies abnormal gait and Denies back pain Integumentary/Breasts: Skin/Breast: Denies breast pain Neurologic: Reports Normal hearing present and Denies abnormal gait Psychiatric: Psychiatric: Denies anxiety Endocrine: Endocrine: Denies excessive sweating Hematologic/Lymphatic: Hematologic/Lymphatic: Denies easy bleeding Allergic/Immunologic: Allergic/Immunologic: Denies GI upset with certain foods Exam Narrative: Awake alert oriented appears to be in no acute distress. Appears stated age Const: General: comfortable; No in distress HENMT: General nose exam: Normal nares present Eyes: Sclera: sclerae normal Neck: Neck: supple and no JVD Chest: Other: No reproducible chest wall pain to palpation Resp: Effort & Inspection: normal respiratory effort Cardio: Rate: regular rate Heart sounds: Murmur heart sound present Other: 2-3/6 systolic ejection murmur at apex GI: Auscultation: normal bowel sounds Skin: General skin exam: normal color and no rashes or lesions noted Neuro: Cranial nerves: Yes Normal hearing present Speech: normal speech Sensory Exam: normal sensation Extrem: General: normal to inspection and edema Psych: Mental Status: mental status grossly normal Objective Data Vital Signs Vital Signs: Vital Signs - 24 hr 08/13/21 12:00 08/13/21 14:00 08/13/21 16:00 Temperature 36.2 C L Pulse Rate 95 86 75 Respiratory Rate 16 Blood Pressure 90/61 L Pulse Oximetry 95 Oxygen Delivery 08/13/21 18:00 08/13/21 19:11 08/13/21 20:00 Temperature 36.3 C L 36.3 C L Pulse Rate 88 85 84 Respiratory Rate 18 18 Blood Pressure 105/65 99/64 L Pulse Oximetry 94 94 Oxygen D
--- NOTE | 2021-08-14 11:16 | PC.NURSE ---
reviewed with pt that she is agreeable to going for NM scan today, social studies department chair states she will be able to disconnect her at aprox 1230 from machine, call to NM to confirm pt is agreeable to getting scan today
[2021-08-14] MEDS: ACETAMINOPHEN 325 MG TABLET 650 MG PO ×2 (11:21→17:30)
[2021-08-14 12:31] LABS: Hepatitis B Surface Antigen Negative (Negative)
[2021-08-14 12:57] LABS: Hepatitis B Core IgM Result Negative (Negative)
--- NOTE | 2021-08-14 14:07 | P.DS_ITS ---
DS: Discharge Diagnosis Discharge Diagnosis (1) Fall from ground level: Code(s): W18.30XA - Fall on same level, unspecified, initial encounter Status: Acute Assessment and Plan: Mechanical fall in which she sustained a right hip fracture and right distal radius fracture. * Patient does report frequent falls. * Fall precautions * Appreciate PT/OT evals (2) Closed subcapital fracture of neck of right femur: Qualifiers: Encounter type: initial encounter Qualified Code(s): S72.011A - Unspecified intracapsular fracture of right femur, initial encounter for closed fracture Code(s): S72.011A - Unspecified intracapsular fracture of right femur, initial encounter for closed fracture Status: Acute Assessment and Plan: Secondary to fall as above * Appreciate orthopedic surgery consultation * She is POD#2 right hip bipolar arthroplasty by Dr. Shelley * Appreciate orthopedic surgery consultation * Supportive care. Analgesics available as needed. * PT/OT. (3) Closed fracture of right distal radius: Qualifiers: Encounter type: initial encounter Fracture morphology: Colles' Qualified Code(s): S52.531A - Colles' fracture of right radius, initial encounter for closed fracture Code(s): S52.501A - Unspecified fracture of the lower end of right radius, initial encounter for closed fracture Status: Acute Assessment and Plan: Secondary to fall * Seen in consultation by Orthopedic surgery * Planning for conservative management with immobilization, ice, compression elevation * Continue fracture splint * Supportive care (4) End-stage renal disease on peritoneal dialysis: Code(s): N18.6 - End stage renal disease; Z99.2 - Dependence on renal dialysis Status: Acute Assessment and Plan: Patient maintained on peritoneal dialysis. * Nephrology following for continued dialysis during admission * Monitor renal function and electrolytes * Renal diet * Continue sodium bicarbonate tablets per Nephrology recommendations (5) Hypokalemia: Code(s): E87.6 - Hypokalemia Status: Acute Assessment and Plan: Resolved. Potassium 3.3 today * 20 mEq PO KCl * Supplement potassium as needed. Caution with supplementation given ESRD * Monitor BMP (6) Valvular heart disease: Code(s): I38 - Endocarditis, valve unspecified Status: Acute Assessment and Plan: Patient reports history of valvular disease that she cannot elaborate on * She is followed by a cook pie at [facility] (name unknown) and records have been requested for review. * Echocardiogram showed moderate aortic stenosis moderate to severe mitral regurgitation * Appreciate cardiology consultation (7) Orthostatic hypotension: Code(s): I95.1 - Orthostatic hypotension Status: Acute Assessment and Plan: An ongoing problem for this patient. * Continue midodrine. * Fall precautions implemented * BP has been low in the 80s/90s systolic. She is asymptomatic. Monitor trends (8) Systolic CHF: Code(s): I50.20 - Unspecified systolic (congestive) heart failure Status: Acute Assessment and Plan: Echocardiogram revealed EF 20-25% with grade 2 diastolic dysfunction * Patient appears clinically compensated. * Appreciate cardiology consultation * Per cardiology will need inotrope therapy (9) Abnormal TSH: Code(s): R79.89 - Other specified abnormal findings of blood chemistry S
--- NOTE | 2021-08-14 14:07 | PM.DS ---
DS: Discharge Diagnosis Discharge Diagnosis (1) Fall from ground level: Code(s): W18.30XA - Fall on same level, unspecified, initial encounter Status: Acute Assessment and Plan: Mechanical fall in which she sustained a right hip fracture and right distal radius fracture. Patient does report frequent falls. Fall precautions Appreciate PT/OT evals (2) Closed subcapital fracture of neck of right femur: Qualifiers: Encounter type: initial encounter Qualified Code(s): S72.011A - Unspecified intracapsular fracture of right femur, initial encounter for closed fracture Code(s): S72.011A - Unspecified intracapsular fracture of right femur, initial encounter for closed fracture Status: Acute Assessment and Plan: Secondary to fall as above Appreciate orthopedic surgery consultation She is POD#2 right hip bipolar arthroplasty by Dr. Shelley Appreciate orthopedic surgery consultation Supportive care. Analgesics available as needed. PT/OT. (3) Closed fracture of right distal radius: Qualifiers: Encounter type: initial encounter Fracture morphology: Colles' Qualified Code(s): S52.531A - Colles' fracture of right radius, initial encounter for closed fracture Code(s): S52.501A - Unspecified fracture of the lower end of right radius, initial encounter for closed fracture Status: Acute Assessment and Plan: Secondary to fall Seen in consultation by Orthopedic surgery Planning for conservative management with immobilization, ice, compression elevation Continue fracture splint Supportive care (4) End-stage renal disease on peritoneal dialysis: Code(s): N18.6 - End stage renal disease; Z99.2 - Dependence on renal dialysis Status: Acute Assessment and Plan: Patient maintained on peritoneal dialysis. Nephrology following for continued dialysis during admission Monitor renal function and electrolytes Renal diet Continue sodium bicarbonate tablets per Nephrology recommendations (5) Hypokalemia: Code(s): E87.6 - Hypokalemia Status: Acute Assessment and Plan: Resolved. Potassium 3.3 today 20 mEq PO KCl Supplement potassium as needed. Caution with supplementation given ESRD Monitor BMP (6) Valvular heart disease: Code(s): I38 - Endocarditis, valve unspecified Status: Acute Assessment and Plan: Patient reports history of valvular disease that she cannot elaborate on She is followed by a brain wave technician at [facility] (name unknown) and records have been requested for review. Echocardiogram showed moderate aortic stenosis moderate to severe mitral regurgitation Appreciate cardiology consultation (7) Orthostatic hypotension: Code(s): I95.1 - Orthostatic hypotension Status: Acute Assessment and Plan: An ongoing problem for this patient. Continue midodrine. Fall precautions implemented BP has been low in the 80s/90s systolic. She is asymptomatic. Monitor trends (8) Systolic CHF: Code(s): I50.20 - Unspecified systolic (congestive) heart failure Status: Acute Assessment and Plan: Echocardiogram revealed EF 20-25% with grade 2 diastolic dysfunction Patient appears clinically compensated. Appreciate cardiology consultation Per cardiology will need inotrope therapy (9) Abnormal TSH: Code(s): R79.89 - Other specified abnormal findings of blood chemistry Status: Acute Assessment and Plan: TSH is elevated at 13.2 with normal T4 but low T3 at 0.56 Started levothyroxine 25 mg daily 08/09. Continue She will need outpatient reflex TSH in 4-6 weeks (10) Leukocytosis: Code(s): D72.829 - Elevated white blood cell count, unspecified Status: Acute Assessment and Plan: Elevated on presentation likely reactive from fall and improved then elevated again postoperatively. Downward trend today.
--- NOTE | 2021-08-14 14:08 | PM.IMPN ---
Progress Note: A&P Assessment and Plan (1) Fall from ground level: Code(s): W18.30XA - Fall on same level, unspecified, initial encounter Status: Acute (2) Closed subcapital fracture of neck of right femur: Qualifiers: Encounter type: initial encounter Qualified Code(s): S72.011A - Unspecified intracapsular fracture of right femur, initial encounter for closed fracture Code(s): S72.011A - Unspecified intracapsular fracture of right femur, initial encounter for closed fracture Status: Acute (3) Closed fracture of right distal radius: Qualifiers: Encounter type: initial encounter Fracture morphology: Colles' Qualified Code(s): S52.531A - Colles' fracture of right radius, initial encounter for closed fracture Code(s): S52.501A - Unspecified fracture of the lower end of right radius, initial encounter for closed fracture Status: Acute (4) End-stage renal disease on peritoneal dialysis: Code(s): N18.6 - End stage renal disease; Z99.2 - Dependence on renal dialysis Status: Acute (5) Hypokalemia: Code(s): E87.6 - Hypokalemia Status: Acute (6) Valvular heart disease: Code(s): I38 - Endocarditis, valve unspecified Status: Acute (7) Orthostatic hypotension: Code(s): I95.1 - Orthostatic hypotension Status: Acute (8) Systolic CHF: Code(s): I50.20 - Unspecified systolic (congestive) heart failure Status: Acute (9) Abnormal TSH: Code(s): R79.89 - Other specified abnormal findings of blood chemistry Status: Acute (10) Leukocytosis: Code(s): D72.829 - Elevated white blood cell count, unspecified Status: Acute (11) Right sided weakness: Code(s): R53.1 - Weakness Status: Acute Additional Plan 08/13/2021 interval history: 66-year-old female s/p fall right hip POD# 3, seen by her surgeon, improved recommended to continue WBAT with Walker care for patient has high risk of fall, will continue pain management and PT OT pending SNF, with history of end-stage renal disease on peritoneal dialysis seen by Dr. River patient is getting daily PD, her electrolytes within normal limits, patient with significant aortic stenosis and mitral valve regurgitation and severe cardiomyopathy patient remains clinically stable and asymptomatic, will continue to monitor patient is waiting for placement will benefit going to SNF for rehab. 08/14/2021 interval history:? 66-year-old female s/p fall?right hip POD# 4,? seen by her surgeon, improving recommended to continue WBAT with Walker? care for patient has high risk of fall, will continue pain management and PT OT pending SNF,? with history of? end-stage renal disease on peritoneal dialysis seen by Dr. River? patient is getting daily PD,? her electrolytes within normal limits, patient with significant aortic stenosis and mitral valve?regurgitation and severe cardiomyopathy, patient hypotensive seen by dynamometer tester engine unable to treat, due to PD, patient is already on max dose of midodrine 10 mg t.i.d. patient remains clinically stable and asymptomatic, will continue to monitor, unable to send the patient to rehab due to hypotension and unable to participate in PT OT will continue to monitor. Subjective Date/time seen: 08/14/21 14:08 08/14/2021 interval history:? 66-year-old female s/p fall?right hip POD# 4,? seen by her surgeon, improving recommended to continue WBAT with Walker? care for patient has high risk of fall, will continue pain management and PT OT pending SNF,? with history of? end-stage renal disease on peritoneal dialysis seen by Dr. River? patient is getting daily PD,? her electrolytes within normal limits, patient with significant aortic stenosis and mitral valve?regurgitation and severe cardiomyopathy, patient hypotensive seen by dynamometer tester engine unable to treat, due to PD, patient is already on max dose of midodrine 10 mg t.i.d. patient dionne
--- NOTE | 2021-08-14 14:50 | WPDGICN ---
Assessment and Plan Assessment and plan (1) Abnormal laboratory test: Code(s): R89.9 - Unspecified abnormal finding in specimens from other organs, systems and tissues Status: Acute Assessment and Plan: I am asked to see patient because her hepatitis B core total antibody is reactive. This along with her negative hepatitis B surface antigen, several days ago were hepatitis B surface antibody was positive. This suggest that she is in recovery phase from hepatitis in the past. Because IgM antibody is negative for hepatitis B core is suspect is not recent. Additional testing for hepatitis B DNA quantification or is in progress and will be reviewed. But in general this suggests that patient has immunity from prior exposure to hepatitis-B. GI Consult Note Consult date/time: 08/14/21 14:50 Reason for consult: Hepatitis-B core antibody positive. HPI: Ruby Campbell is a 66 year old female I am asked to see at the request of the Nephrology service. patient has chronic kidney disease currently on peritoneal dialysis. Hemodialysis is anticipated in anticipation of this hepatitis serologies were obtain her hepatitis B core antibody total was noted to be positive. Her core IgM antibody is negative. Her hepatitis-B surface antigen is negative. Her LFTs are normal. Patient states she has never been exposed to hepatitis that she is aware. She worked in the [employer] and states she may have received hepatitis vaccine in the past. Her family history is noncontributory. She has no exposure to hepatitis. Patient does have a history of a recent fall she has had some orthopedic fractures including her right femur her distal radius. She is felt to have valvular heart disease for which Cardiology sees her she has end-stage renal disease maintained on dialysis under their direction. She has felt to have congestive heart failure. Patient denies any jaundice. Review of Systems Review of Systems: Review of systems noncontributory. 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 Transplant lasted 11 years before failing. Obstructive sleep apnea No longer using CPAP after weight loss. 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 Valvular heart disease Surgical History Surgical History History of section History of hysterectomy History of tubal ligation Peritoneal dialysis catheter in place Status post excision of Bhatia's neuroma Status post surgical removal of malignant neoplasm of skin Family History Family History Mother Lymphoma Chronic obstructive pulmonary disease Social History Social History Social History: Lives with in [place]. Unemployed, on disability. No alcohol, tobacco, illicit substance abuse. Surrogate decision maker: Carl Bardalessaadia, spouse. Code status: Full code. Spiritual care concerns: No Meds Home Medications and Allergies Home Medications Medication Instructions Recorded Confirmed Type albuterol sulfate 90 mcg/actuation 1 inh inhalation BID PRN sob 08/08/21 08/08/21 History aerosol inhaler gabapentin 100 mg capsule 100 mg PO DAILY 08/08/21 08/09/21 History gentamicin 0.1 % topical cream 1 applic topical DAILY 08/08/21 08/08/21 History midodrine 10 mg tablet 10 mg PO TID 08/08/21 08/09/21 History pantoprazole 40 mg tablet,delayed 40 mg PO DAILY 08/08/21 08/09/21 History release rizatriptan 10 mg tablet 10 mg PO BID PRN Migraine Head
[2021-08-14 14:54] LABS: Hepatitis B Surface Anti Res Indeterminate
--- NOTE | 2021-08-14 16:11 | PM.CNGS ---
Assessment and Plan Assessment and plan (1) End-stage renal disease on peritoneal dialysis: Code(s): N18.6 - End stage renal disease; Z99.2 - Dependence on renal dialysis Status: Acute Assessment and Plan: Patient currently on peritoneal dialysis and Nephrology planning to switch to hemodialysis. They have asked our service to place a tunneled dialysis catheter. Description of the procedure, risks, benefits, expected outcomes, and expected recovery were discussed with the patient in detail. All questions were answered. Patient agrees to proceed. We have added the patient on for tunneled dialysis catheter placement tomorrow by Dr. Chang. Will make NPO after midnight. (2) Moderate aortic valve stenosis: Code(s): I35.0 - Nonrheumatic aortic (valve) stenosis Status: Acute (3) Obstructive sleep apnea: Code(s): G47.33 - Obstructive sleep apnea (adult) (pediatric) Status: Acute (4) Valvular heart disease: Code(s): I38 - Endocarditis, valve unspecified Status: Acute (5) Closed subcapital fracture of neck of right femur: Qualifiers: Encounter type: initial encounter Qualified Code(s): S72.011A - Unspecified intracapsular fracture of right femur, initial encounter for closed fracture Code(s): S72.011A - Unspecified intracapsular fracture of right femur, initial encounter for closed fracture Status: Acute (6) Closed fracture of right distal radius: Qualifiers: Encounter type: initial encounter Fracture morphology: Colles' Qualified Code(s): S52.531A - Colles' fracture of right radius, initial encounter for closed fracture Code(s): S52.501A - Unspecified fracture of the lower end of right radius, initial encounter for closed fracture Status: Acute Plan I have discussed the patient's case and plan of care with Dr. Chang. History of Present Illness Consult details Consult date: 08/14/21 Reason for consult: other (Tunneled dialysis catheter placement) Requesting physician: Stephon River MD Narrative: This is a 66 yo female with end-stage renal disease on peritoneal dialysis and multiple other medical problems, who presented to the ER on 08/08/21 for right hip pain after a fall. She was admitted and underwent a right hip bipolar on 08/10/21 for a right closed subcapital femoral neck fracture. She is undergoing physical and occupational therapy, and they are planning a disposition to a long-term facility. Nephrology is following her peritoneal dialysis. She has had issues with compliance with home peritoneal dialysis and additionally cannot go to a rehab facility with peritoneal dialysis. Nephrology is planning to start hemodialysis and has consulted our service for placement of a tunneled dialysis catheter. She is now seen on the medical floor. Review of Systems Review of Systems: All systems reviewed & are unremarkable except as noted in HPI and below Constitutional: Constitutional: Reports no additional constitutional complaints, Denies chills and Denies fever(s) ENT: Reports system reviewed and no additional complaints, except as documented Cardiovascular: Cardiovascular: Reports no additional cardiovascular complaints, Denies chest pain and Denies pedal edema Respiratory: Respiratory: Reports no additional respiratory complaints, Denies cough and Denies dyspnea Gastrointestinal: Gastrointestinal: Reports no additional gastrointestinal complaints, Denies abdominal pain, Denies nausea, Denies vomiting and Reports other (peritoneal dialysis) Genitourinary: Genitourinary: Reports no additional female genitourinary complaints Musculoskeletal: Musculoskeletal: Reports no additional musculoskeletal complaints, Reports as per HPI, Reports arthralgias (right hip and right wrist) and Reports limited range of motion (right hip and right wrist, s/p fall, s/p right hip bipolar) Integumentary/Breasts: Skin/Breast: Reports system reviewed an
[2021-08-14] MEDS: EPOETIN ALFA-EPBX 10,000 UNITS/ML VIAL 10000 UNITS SUB-Q (17:25)
[2021-08-14] MEDS: GENTAMICIN SULFATE 0.1% CR 15 GM TUBE 1 APPLIC TOPICAL (20:09)
[2021-08-14] MEDS: GABAPENTIN 100 MG CAPSULE PO (20:09)
[2021-08-14] MEDS: SERTRALINE HCL 50 MG TABLET PO (20:09)
[2021-08-15] VITALS (20 sets, daily range): BP systolic 77–111; BP diastolic 39–74; PULSE 59–99; RESP 12–18; TEMP 36.1–37.5; O2SAT 91–100; BMI 10.0; BMI 22.9
[2021-08-15 06:02] LABS: Albumin Level 2.6 g/dL (3.5-5.1); Anion Gap 14 mmol/L (8-16); Blood Urea Nitrogen 53 mg/dL (7-17); Calcium 8.2 mg/dL (8.4-10.2); Carbon Dioxide 26 mmol/L (22-30); Chloride 94 mmol/L (98-107); Estimated CRCL calculation 6 ml/min; Estimated Glomerular Filt Rate 5; Glucose 111 mg/dL (65-110); Phosphorus 5.5 mg/dL (2.5-4.5); Potassium 3.1 mmol/L (3.4-5.0); Sodium 134 mmol/L (137-145)
[2021-08-15] MEDS: LEVOTHYROXINE SODIUM 25 MCG TABLET PO (06:22)
[2021-08-15] MEDS: MIDODRINE HCL 10 MG TABLET PO (08:33)
[2021-08-15] MEDS: PANTOPRAZOLE 40 MG TABLET PO (08:33)
--- NOTE | 2021-08-15 11:11 | PM.PNNEP ---
Progress Note: A&P Additional Plan 1. Ruby has end-stage renal disease. She is on peritoneal dialysis She uses yellow bags. She had a last fill as well. UF around 500cc. She is on yellow bags so not much fluid is being removed. Fluid is clear and flows are good. she was seen at 10:00 a.m. 2. hypertension no longer an issue 3. orthostatic hypotension. She is on midodrine. She has no edema. We are not removing much fluid with dialysis. appetite is slightly better. 4. sleep apnea She does not use a CPAP machine since she lost weight. 5. pre diabetes Sugars good at 135 this morning 6. valvular heart disease . moderate aortic stenosis, moderate to severe mitral regurgitation, moderate pulmonary hypertension, a left ventricular ejection fraction of only 20-25%, and severely enlarged LV chamber. She also has grade 2 diastolic dysfunction. Cardiology is seeing the patient. 7. fractured right hip Getting supportive care and physical therapy 8. GERD she is on pantoprazole 9. anemia hemoglobin is stable in the 10s. will continue EPO. 10. renal osteodystrophy Phosphorus level was very high on admission. now 5.5. Subjective Date/time seen: 08/15/21 11:11 Interval history: patient feels a little bit better today. Getting physical therapy now. Calves seem a little bit less tender. Ready for PermCath. Exam Narrative: WDWN in NAD skin no rash head ncat lungs clear bilateral cor reg no rub or gallop abd BS+ nontender and soft ext trace edema Some tenderness but less in the calves. Objective Data Vital Signs Vital Signs: Vital Signs - 24 hr 08/14/21 13:55 08/14/21 12:00 08/14/21 15:50 Temperature 36.8 C Pulse Rate 84 108 H Respiratory Rate 14 Blood Pressure 95/61 L Pulse Oximetry 93 95 Oxygen Delivery Room Air 08/14/21 16:00 08/14/21 18:08 08/14/21 19:31 Temperature 36.9 C 36.7 C Pulse Rate 80 64 86 Respiratory Rate 12 16 Blood Pressure 95/56 L 103/62 Pulse Oximetry 96 95 Oxygen Delivery 08/14/21 20:00 08/14/21 20:00 08/15/21 00:00 Temperature Pulse Rate 86 86 Respiratory Rate Blood Pressure Pulse Oximetry Oxygen Delivery Room Air 08/15/21 00:18 08/15/21 04:00 08/15/21 05:28 Temperature 36.5 C 36.5 C Pulse Rate 59 L 84 89 Respiratory Rate 16 16 Blood Pressure 92/60 L 95/67 L Pulse Oximetry 92 93 Oxygen Delivery 08/15/21 07:45 08/15/21 09:46 Temperature Pulse Rate Respiratory Rate Blood Pressure Pulse Oximetry Oxygen Delivery Room Air Room Air Intake/Output Intake/Output: Intake & Output 08/12/21 08/13/21 08/14/21 08/15/21 23:59 23:59 23:59 23:59 Intake Total 310 275 550 0 Output Total 441 0 0 Balance -131 275 550 0 Meds/Results Medications: Active Medications Generic Name Dose Route Start Last Admin Trade Name Freq PRN Reason Stop Dose Admin Acetaminophen 650 mg 08/09/21 16:31 08/14/21 17:30 Acetaminophen 325 Mg Tablet PO 650 mg Q4H PRN Administration Pain 1-3 Hydrocodone Bitart/Acetaminophen 1 tab 08/10/21 11:13 08/11/21 18:53 Hydrocodone/Acetaminophen (*Crx) 5-325 Mg Tablet PO 1 tab Q3H PRN Administration Pain Rated 4-6 Albuterol 1 puff 08/09/21 01:09 Albuterol Sulfate (*Sp) Aerosol 1 Puff INHALATION BID PRN Shortness Of Breath Aspirin 81 mg 08/11/21 08:00 08/15/21 07:53 Aspirin 81 Mg Chewable Tablet PO Not Given DAILY@0800 [facility] Bisacodyl 10 mg 08/10/21 11:13 Bisacodyl 10 Mg Suppository RECTAL DAILY PRN Constipation Diazepam 5 mg 08/10/21 11:13 08/10/21 23:20 Diazepam (*Crx) 5 Mg Tablet PO 5 mg Q8H PRN Administration Muscle Spasm Epoetin Dov-epbx 10,000 units 08/12/21 17:00 08/14/21 17:25 Epoetin Dov-Epbx 10,000 Units/Ml Vial SUB-Q 10,000 units TuThSa@1700 [facility] Administration Gabapentin 100 mg 08/09/21 21:00 08/14/21 20:09 Gabapentin 100
--- NOTE | 2021-08-15 12:38 | PM.PNCARD ---
Progress Note: A&P Assessment and Plan (1) Moderate aortic valve stenosis: Code(s): I35.0 - Nonrheumatic aortic (valve) stenosis Status: Acute (2) Systolic CHF: Code(s): I50.20 - Unspecified systolic (congestive) heart failure Status: Acute Plan 66-year-old lady with aortic valve stenosis who came to this hospital because of a fall and a femoral neck fracture. This has been repaired. There have been no perioperative cardiac complications. I am going to sign off of her inpatient follow-up at this time. Her established dry room attendant is at [facility] in [place]. We therefore will not plan ongoing follow-up in our office. Igor Anand MD [facility] Subjective Date/time seen: Date of service:08/15/21 12:38 Interval history: Follow-up visit in this 66-year-old lady with: Severe aortic valve stenosis presenting with fall and femoral neck fracture. Patient was seen for preoperative cardiac risk assessment. Orthopedic surgery was done earlier this week without any significant cardiovascular complications. She remains in the hospital apparently plans are now to place access for hemodialysis to take place of peritoneal dialysis. She has cardiovascular follow-up longitudinally arranged already in [place] at [facility]. No cardiac complaints today Exam Const: General: comfortable Other: frail elderly lady no distress HENMT: Mouth: Yes moist mucous membranes Eyes: Sclera: sclerae normal Neck: Neck: supple and no JVD Resp: Effort & Inspection: normal respiratory effort Auscultation: clear to auscultation bilaterally Cardio: Rate: regular rate Other: grade 2/6 systolic murmur compatible with aortic valve stenosis audible at the base GI: GI Palp: Yes Soft to palpation Auscultation: normal bowel sounds Skin: General skin exam: normal color Objective Data Vital Signs Vital Signs: Vital Signs - 24 hr 08/14/21 13:55 08/14/21 15:50 08/14/21 16:00 Temperature 36.8 C Pulse Rate 84 80 Respiratory Rate 14 Blood Pressure 95/61 L Pulse Oximetry 93 95 Oxygen Delivery Room Air 08/14/21 18:08 08/14/21 19:31 08/14/21 20:00 Temperature 36.9 C 36.7 C Pulse Rate 64 86 86 Respiratory Rate 12 16 Blood Pressure 95/56 L 103/62 Pulse Oximetry 96 95 Oxygen Delivery 08/14/21 20:00 08/15/21 00:00 08/15/21 00:18 Temperature 36.5 C Pulse Rate 86 59 L Respiratory Rate 16 Blood Pressure 92/60 L Pulse Oximetry 92 Oxygen Delivery Room Air 08/15/21 04:00 08/15/21 05:28 08/15/21 07:45 Temperature 36.5 C Pulse Rate 84 89 Respiratory Rate 16 Blood Pressure 95/67 L Pulse Oximetry 93 Oxygen Delivery Room Air 08/15/21 09:46 08/15/21 10:45 Temperature 36.6 C Pulse Rate 95 Respiratory Rate 16 Blood Pressure 77/57 L Pulse Oximetry 100 Oxygen Delivery Room Air Intake/Output Intake/Output: Intake & Output 08/12/21 08/13/21 08/14/21 08/15/21 23:59 23:59 23:59 23:59 Intake Total 310 275 550 0 Output Total 441 0 0 Balance -131 275 550 0 Meds/Results Medications: Active Medications Generic Name Dose Route Start Last Admin Trade Name Freq PRN Reason Stop Dose Admin Acetaminophen 650 mg 08/09/21 16:31 08/14/21 17:30 Acetaminophen 325 Mg Tablet PO 650 mg Q4H PRN Administration Pain 1-3 Hydrocodone Bitart/Acetaminophen 1 tab 08/10/21 11:13 08/11/21 18:53 Hydrocodone/Acetaminophen (*Crx) 5-325 Mg Tablet PO 1 tab Q3H PRN Administration Pain Rated 4-6 Albuterol 1 puff 08/09/21 01:09 Albuterol Sulfate (*Sp) Aerosol 1 Puff INHALATION BID PRN Shortness Of Breath Aspirin 81 mg 08/11/21 08:00 08/15/21 07:53 Aspirin 81 Mg Chewable Tablet PO Not Given DAILY@0800 [facility] Bisacodyl 10 mg 08/10/21 11:13 Bisacodyl 10 Mg Suppository RECTAL DAILY PRN Constipation Diazepam 5 mg 08/10/21 11:13 08/10/21 23:20 Diazepam (*Crx) 5 Mg Tablet
--- NOTE | 2021-08-15 13:34 | PCNSR ---
On 08/15/21, the student, Jossie Sow, provided care and completed [facility] documentation on this patient. I have reviewed the student's documentation and agree with the findings.
--- NOTE | 2021-08-15 14:55 | PC.NURSE ---
pt to surgery via bed
--- NOTE | 2021-08-15 15:20 | PM.IMPN ---
Progress Note: A&P Assessment and Plan (1) Fall from ground level: Code(s): W18.30XA - Fall on same level, unspecified, initial encounter Status: Acute (2) Closed subcapital fracture of neck of right femur: Qualifiers: Encounter type: initial encounter Qualified Code(s): S72.011A - Unspecified intracapsular fracture of right femur, initial encounter for closed fracture Code(s): S72.011A - Unspecified intracapsular fracture of right femur, initial encounter for closed fracture Status: Acute (3) Closed fracture of right distal radius: Qualifiers: Encounter type: initial encounter Fracture morphology: Colles' Qualified Code(s): S52.531A - Colles' fracture of right radius, initial encounter for closed fracture Code(s): S52.501A - Unspecified fracture of the lower end of right radius, initial encounter for closed fracture Status: Acute (4) End-stage renal disease on peritoneal dialysis: Code(s): N18.6 - End stage renal disease; Z99.2 - Dependence on renal dialysis Status: Acute (5) Hypokalemia: Code(s): E87.6 - Hypokalemia Status: Acute (6) Valvular heart disease: Code(s): I38 - Endocarditis, valve unspecified Status: Acute (7) Orthostatic hypotension: Code(s): I95.1 - Orthostatic hypotension Status: Acute (8) Systolic CHF: Code(s): I50.20 - Unspecified systolic (congestive) heart failure Status: Acute (9) Abnormal TSH: Code(s): R79.89 - Other specified abnormal findings of blood chemistry Status: Acute (10) Leukocytosis: Code(s): D72.829 - Elevated white blood cell count, unspecified Status: Acute (11) Right sided weakness: Code(s): R53.1 - Weakness Status: Acute Additional Plan 08/13/2021 interval history: 66-year-old female s/p fall right hip POD# 3, seen by her surgeon, improved recommended to continue WBAT with Walker care for patient has high risk of fall, will continue pain management and PT OT pending SNF, with history of end-stage renal disease on peritoneal dialysis seen by Dr. River patient is getting daily PD, her electrolytes within normal limits, patient with significant aortic stenosis and mitral valve regurgitation and severe cardiomyopathy patient remains clinically stable and asymptomatic, will continue to monitor patient is waiting for placement will benefit going to SNF for rehab. 08/14/2021 interval history:? 66-year-old female s/p fall?right hip POD# 4,? seen by her surgeon, improving recommended to continue WBAT with Walker? care for patient has high risk of fall, will continue pain management and PT OT pending SNF,? with history of? end-stage renal disease on peritoneal dialysis seen by Dr. River? patient is getting daily PD,? her electrolytes within normal limits, patient with significant aortic stenosis and mitral valve?regurgitation and severe cardiomyopathy, patient hypotensive seen by ophthalmic technician apprentice unable to treat, due to PD, patient is already on max dose of midodrine 10 mg t.i.d. patient remains clinically stable and asymptomatic, will continue to monitor, unable to send the patient to rehab due to hypotension and unable to participate in PT OT will continue to monitor. 08/15/2021 interval history:? 66-year-old female s/p fall?right hip POD# 5,? seen by her surgeon, improving recommended to continue WBAT with Walker? care for patient has high risk of fall, will continue pain management and PT OT pending SNF,? with history of? end-stage renal disease on peritoneal dialysis seen by Dr. River? patient is getting daily PD, affiliate manager recommending to switch over to hemodialysis patient will have tunneled catheter placed today and may have hemodialysis tomorrow, ? her electrolytes within normal limits, patient with significant aortic stenosis and mitral valve?regurgitation and severe cardiomyopathy with EF of only 20-25%, patient hypotensive see
--- NOTE | 2021-08-15 15:21 | WPDANESEPPF ---
Anes - Initial Pre Proc Eval Procedure: Operation Date: 08/15/21 16:30 Proposed Procedures p Insertion Tunneled Dialysis Catheter - Carl Chang DO Date/Time: 08/15/21 15:21 Surgeon: Yancy Bustamante MD Pre Op Diagnosis: right closed subcapital femoral neck fracture disp Patient Data Age: 66 Gender: F Height: 1.63 m Weight: 60.6 kg Last Vital Signs Temp 36.3 C L 08/15/21 14:09 Pulse 87 08/15/21 14:09 Resp 16 08/15/21 14:09 BP 93/58 L 08/15/21 14:09 Pulse Ox 96 08/15/21 14:09 O2 Del Method Room Air 08/15/21 09:46 O2 Flow Rate 2 08/10/21 14:25 Allergies Allergy/AdvReac Type Severity Reaction Status Date / Time Penicillins Allergy Difficulty Verified 08/08/21 21:33 Breathing Home Medications Medication Instructions Recorded Confirmed Type albuterol sulfate 90 mcg/actuation 1 inh inhalation BID PRN sob 08/08/21 08/08/21 History aerosol inhaler gabapentin 100 mg capsule 100 mg PO DAILY 08/08/21 08/09/21 History gentamicin 0.1 % topical cream 1 applic topical DAILY 08/08/21 08/08/21 History midodrine 10 mg tablet 10 mg PO TID 08/08/21 08/09/21 History pantoprazole 40 mg tablet,delayed 40 mg PO DAILY 08/08/21 08/09/21 History release rizatriptan 10 mg tablet 10 mg PO BID PRN Migraine Headache 08/08/21 08/09/21 History sertraline 50 mg tablet 50 mg PO HS 08/08/21 08/09/21 History sevelamer carbonate 2.4 gram oral 2.4 g PO TID 08/08/21 08/08/21 History powder packet hydrocodone 5 mg-acetaminophen 325 1 tablet PO Q4-6H PRN pain #50 tabs 08/12/21 Rx mg tablet Laboratory Tests 08/15/21 04:55 Sodium 134 mmol/L L mmol/L (137-145) Potassium 3.1 mmol/L L mmol/L (3.4-5.0) Chloride 94 mmol/L L mmol/L (98-107) Carbon Dioxide 26 mmol/L mmol/L (22-30) Anion Gap 14 mmol/L mmol/L (8-16) BUN 53 mg/dL H mg/dL (7-17) Creatinine 7.90 mg/dL H mg/dL (0.7-1.0) Estim Creat Clear Calc 6 ml/min ml/min Estimated GFR 5 L (59 - ) Glucose 111 mg/dL H mg/dL (65-110) Calcium 8.2 mg/dL L mg/dL (8.4-10.2) Phosphorus 5.5 mg/dL H mg/dL (2.5-4.5) Albumin 2.6 g/dL L g/dL (3.5-5.1) Patient hx anesthesia problems: none Family hx anesthesia problems: none Results Review: All pre-operative results and documents have been reviewed as part of the pre-operative evaluation. 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 Transplant lasted 11 years before failing. Obstructive sleep apnea No longer using CPAP after weight loss. 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 Valvular heart disease Surgical History Surgical History History of section History of hysterectomy History of tubal ligation Peritoneal dialysis catheter in place Status post excision of Bhatia's neuroma Status post surgical removal of malignant neoplasm of skin Family History Family History Mother Lymphoma Chronic obstructive pulmonary disease Social History Social History Social History: Lives with in [place]. Unemployed, on disability. No alcohol, tobacco, illicit substance abuse. Surrogate decision maker: Carl Campbell, spouse. Code status: Full code. Spiritual care concerns: No Anes - Eval Final PreProcedure Day of Procedure 08/15/21 15:21 Patient weight: normal Heart: regular rate and rhythm Lungs: clear to auscultation Airway: Mallampati scale class III and special c
--- NOTE | 2021-08-15 15:24 | WPDHPUPDATE1 ---
History and Physical Update Update Date/Time: 08/15/21 15:24 History and Physical has been reviewed, including an updated exam of the patient. There are NO changes in the patient's condition. Risks, benefits, and alternatives have been discussed and questions answered. Patient agrees to proceed with procedure.
[2021-08-15] MEDS: SODIUM CHLORIDE 0.9% IV 500 ML 30 ML IV CONT (15:40)
[2021-08-15] MEDS: ceFAZolin 2 GM/D5W 50 ML 2 GM/50 ML BAG IVPB (15:41)
[2021-08-15] MEDS: LIDO 1%/EPINEPHRINE/PF 1:200,000 30 ML VIAL XX (16:04)
[2021-08-15] MEDS: HEPARIN SODIUM, PORCINE 10,000 UNITS/10 ML VIAL 10000 UNITS IRRIGATION (16:05)
--- NOTE | 2021-08-15 16:19 | P.OP_ITS ---
Procedure Note - Detailed Date of Procedure 08/15/21 Pre-op Diagnosis End-stage renal disease Post-op Diagnosis Same Procedure Performed Right internal jugular tunneled dialysis catheter placement using ultrasound and fluoroscopic guidance Surgeon Carl Chang, DO Anesthesia MAC and Local (1% lidocaine with epinephrine) Findings SonoSite ultrasound was used to identify the right internal jugular vein. This was identified as a compressible vessel just lateral to the carotid artery. An 18 gauge introducer needle was advanced under ultrasound guidance directly into the lumen of the right internal jugular. Dark nonpulsatile blood was aspirated. Fluoroscopy was then used to guide advancement of the guidewire followed by the dilators and sheath. The final fluoroscopic images demonstrated the catheter tip in the distal SVC and no kinks along its. Description of Procedure Procedure as well as risks, benefits, and alternatives were discussed with patient. Written consent was obtained and placed in chart prior to procedure. Patient was brought back to surgical suite. Placed supine on operating table. Time-out was done confirm patient procedure. IV sedation was then administered by the Anesthesia Department. Her chest and neck area was prepped and draped in sterile fashion using chlorhexidine prep. Patient was placed in Trendelenburg position. SonoSite ultrasound was used to identify the right internal jugular vein. It was visualized as a compressible vessel just lateral to the carotid artery. 1% lidocaine with epinephrine was infiltrated directly over the vessel under ultrasound guidance. An 18 gauge introducer needle was then advanced under ultrasound guidance directly into the right internal jugular vein. Dark nonpulsatile blood was aspirated. A 0.035 in guidewire was then advanced through the needle under fluoroscopic guidance. The guidewire was visualized advancing all the way down into the superior vena cava. 1% lidocaine with epinephrine was then infiltrated on the right anterior chest and along the tract up to the guidewire insertion site. A 5 mm incision was made with a 15 blade scalpel. A small jasper incision was then also made at the insertion site at the neck. The tunneler was then advanced from the chest incision up to the neck incision and the catheter tubing was brought up through this tract. The dilator and sheath were then advanced over the guidewire under fluoroscopic visualization. The dilator and guidewire were then removed leaving the sheath in place. The catheter tubing was then advanced through the sheath under fluoroscopic guidance. The sheath was unsnapped and carefully peeled away. The catheter tubing was released underneath the neck incision. Fluoroscopy was used to confirm proper placement of the catheter tubing and no kinks along its path. The catheter was then hep-locked with Hep-Lock solution. The skin of the incisions was then approximated using 4-0 Monocryl subcuticular suture. Exofin glue was then applied at the neck incision and 2x2 gauze and Tegaderm drassing applied at the chest. The patient was then awakened from anesthesia and transferred to recovery. Implants 24 cm DuraFlow2 dialysis catheter Estimated Blood Loss 5 Urine Output 0 Complications No immediate complications Condition Stable Disposition [facility] Surgery - Charge Forward: Surgery Gadiel
--- NOTE | 2021-08-15 16:19 | PCSTNOTE ---
Patient not seen due to being in procedure this afternoon.
--- NOTE | 2021-08-15 17:33 | PC.NURSE ---
pt returned from surgery via bed, resting comfortably at this time
[2021-08-15] MEDS: GABAPENTIN 100 MG CAPSULE PO (20:19)
[2021-08-15] MEDS: SERTRALINE HCL 50 MG TABLET PO (20:19)
[2021-08-15] MEDS: GENTAMICIN SULFATE 0.1% CR 15 GM TUBE 1 APPLIC TOPICAL (20:25)
[2021-08-16] VITALS (16 sets, daily range): BP systolic 86–112; BP diastolic 50–74; PULSE 81–109; RESP 16–18; TEMP 36.2–37.1; O2SAT 84–97
[2021-08-16] MEDS: HYDROcodone/acetaminophen (*CRX) 5-325 MG TABLET 1 TAB PO (04:31)
[2021-08-16] MEDS: LEVOTHYROXINE SODIUM 25 MCG TABLET PO (05:50)
[2021-08-16] MEDS: polyethylene glycoL 3350 17 GM POWD.PACK PO (08:40)
[2021-08-16] MEDS: SODIUM BICARBONATE TAB 650 MG TABLET 1300 MG PO ×2 (08:42→16:18)
[2021-08-16] MEDS: PANTOPRAZOLE 40 MG TABLET PO (08:42)
[2021-08-16] MEDS: SEVELAMER CARBONATE 800 MG TABLET 3200 MG PO ×3 (08:43→16:19)
[2021-08-16 08:44] LABS: Hematocrit 37.2 % (37.0-47.0); Hemoglobin 11.6 g/dL (12.0-15.0); Mean Corpuscular HGB Conc 31.2 g/dl (32-36); Mean Corpuscular Hemoglobin 31.9 pg (26-34); Mean Corpuscular Volume 102.2 fl (80-100); Mean Platelet Volume 10.8 fl (7.4-10.4); Platelet Count Result 211 k/mm3 (150-375); Red Blood Count 3.64 M/mm3 (4.2-5.4); Red Cell Distribution Width 17.4 % (11.5-14.5); White Blood Count 13.2 K/mm3 (4.5-10.0)
[2021-08-16] MEDS: ASPIRIN 81 MG CHEWABLE TABLET PO (08:44)
[2021-08-16] MEDS: MIDODRINE HCL 10 MG TABLET PO ×4 (08:44→20:29)
[2021-08-16] MEDS: SENNA/DOCUSATE SODIUM TABLET 2 TAB PO ×2 (08:44→16:18)
[2021-08-16 08:58] LABS: Albumin Level 2.7 g/dL (3.5-5.1); Anion Gap 11 mmol/L (8-16); Blood Urea Nitrogen 52 mg/dL (7-17); Calcium 8.6 mg/dL (8.4-10.2); Carbon Dioxide 27 mmol/L (22-30); Chloride 95 mmol/L (98-107); Estimated CRCL calculation 6 ml/min; Estimated Glomerular Filt Rate 5; Glucose 160 mg/dL (65-110); Potassium 3.1 mmol/L (3.4-5.0); Sodium 133 mmol/L (137-145)
--- NOTE | 2021-08-16 10:20 | PM.IMPN ---
Progress Note: A&P Assessment and Plan (1) Fall from ground level: Code(s): W18.30XA - Fall on same level, unspecified, initial encounter Status: Acute (2) Closed subcapital fracture of neck of right femur: Qualifiers: Encounter type: initial encounter Qualified Code(s): S72.011A - Unspecified intracapsular fracture of right femur, initial encounter for closed fracture Code(s): S72.011A - Unspecified intracapsular fracture of right femur, initial encounter for closed fracture Status: Acute (3) Closed fracture of right distal radius: Qualifiers: Encounter type: initial encounter Fracture morphology: Colles' Qualified Code(s): S52.531A - Colles' fracture of right radius, initial encounter for closed fracture Code(s): S52.501A - Unspecified fracture of the lower end of right radius, initial encounter for closed fracture Status: Acute (4) End-stage renal disease on peritoneal dialysis: Code(s): N18.6 - End stage renal disease; Z99.2 - Dependence on renal dialysis Status: Acute (5) Hypokalemia: Code(s): E87.6 - Hypokalemia Status: Acute (6) Valvular heart disease: Code(s): I38 - Endocarditis, valve unspecified Status: Acute (7) Orthostatic hypotension: Code(s): I95.1 - Orthostatic hypotension Status: Acute (8) Systolic CHF: Code(s): I50.20 - Unspecified systolic (congestive) heart failure Status: Acute (9) Abnormal TSH: Code(s): R79.89 - Other specified abnormal findings of blood chemistry Status: Acute (10) Leukocytosis: Code(s): D72.829 - Elevated white blood cell count, unspecified Status: Acute (11) Right sided weakness: Code(s): R53.1 - Weakness Status: Acute Additional Plan 08/13/2021 interval history: 66-year-old female s/p fall right hip POD# 3, seen by her surgeon, improved recommended to continue WBAT with Walker care for patient has high risk of fall, will continue pain management and PT OT pending SNF, with history of end-stage renal disease on peritoneal dialysis seen by Dr. River patient is getting daily PD, her electrolytes within normal limits, patient with significant aortic stenosis and mitral valve regurgitation and severe cardiomyopathy patient remains clinically stable and asymptomatic, will continue to monitor patient is waiting for placement will benefit going to SNF for rehab. 08/14/2021 interval history:? 66-year-old female s/p fall?right hip POD# 4,? seen by her surgeon, improving recommended to continue WBAT with Walker? care for patient has high risk of fall, will continue pain management and PT OT pending SNF,? with history of? end-stage renal disease on peritoneal dialysis seen by Dr. River? patient is getting daily PD,? her electrolytes within normal limits, patient with significant aortic stenosis and mitral valve?regurgitation and severe cardiomyopathy, patient hypotensive seen by network systems operator unable to treat, due to PD, patient is already on max dose of midodrine 10 mg t.i.d. patient remains clinically stable and asymptomatic, will continue to monitor, unable to send the patient to rehab due to hypotension and unable to participate in PT OT will continue to monitor. 08/15/2021 interval history:? 66-year-old female s/p fall?right hip POD# 5,? seen by her surgeon, improving recommended to continue WBAT with Walker? care for patient has high risk of fall, will continue pain management and PT OT pending SNF,? with history of? end-stage renal disease on peritoneal dialysis seen by Dr. River? patient is getting daily PD, motor block mechanic recommending to switch over to hemodialysis patient will have tunneled catheter placed today and may have hemodialysis tomorrow, ? her electrolytes within normal limits, patient with significant aortic stenosis and mitral valve?regurgitation and severe cardiomyopathy with EF of only 20-25%, patient hypotensive see
[2021-08-16] MEDS: POTASSIUM CHLORIDE 20 MEQ PACKET (FOR LIQUID) 40 MEQ PO (11:45)
--- NOTE | 2021-08-16 12:17 | PM.PNNEP ---
Progress Note: A&P Additional Plan 1. Ruby has end-stage renal disease. She is on peritoneal dialysis Using the same yellow bags and same prescription as before. Fluid is clear in flows are good. She was seen at 11:30 a.m. 2. hypertension no longer an issue 3. orthostatic hypotension. She is on midodrine. She has no edema. We are not removing much fluid with dialysis. appetite is slightly better. 4. sleep apnea She does not use a CPAP machine since she lost weight. 5. pre diabetes Sugars under good control 6. valvular heart disease . moderate aortic stenosis, moderate to severe mitral regurgitation, moderate pulmonary hypertension, a left ventricular ejection fraction of only 20-25%, and severely enlarged LV chamber. She also has grade 2 diastolic dysfunction. Cardiology is seeing the patient. 7. fractured right hip Getting supportive care and physical therapy 8. GERD she is on pantoprazole 9. anemia hemoglobin is up to 11.6. Will hold on the Epogen. 10. renal osteodystrophy Phosphorus level was very high on admission. now slightly high. Continue sevelamer. Subjective Date/time seen: 08/16/21 12:17 Interval history: patient feels about the same. No pain right now. Exam Narrative: WDWN in NAD skin no rash head ncat lungs clear bilateral cor reg no rub or gallop abd BS+ nontender and soft ext trace edema not quite so tender in the calves. Objective Data Vital Signs Vital Signs: Vital Signs - 24 hr 08/15/21 14:09 08/15/21 15:26 08/15/21 16:22 Temperature 36.3 C L 36.8 C 37.5 C Pulse Rate 87 89 94 Respiratory Rate 16 18 14 Blood Pressure 93/58 L 95/49 L 99/50 L Pulse Oximetry 96 97 97 Oxygen Delivery Room Air Room Air 08/15/21 16:35 08/15/21 16:50 08/15/21 17:05 Temperature Pulse Rate 99 95 84 Respiratory Rate 18 18 18 Blood Pressure 87/39 L 103/54 L 106/50 L Pulse Oximetry 96 92 92 Oxygen Delivery Room Air Room Air Room Air 08/15/21 17:17 08/15/21 17:33 08/15/21 18:00 Temperature 36.2 C L Pulse Rate 84 92 89 Respiratory Rate 18 16 12 Blood Pressure 105/54 L 87/54 L 100/64 Pulse Oximetry 92 100 91 Oxygen Delivery Room Air 08/15/21 19:03 08/15/21 20:54 08/15/21 20:00 Temperature 36.1 C L 36.1 C L Pulse Rate 94 94 92 Respiratory Rate 18 18 Blood Pressure 104/70 104/70 Pulse Oximetry 97 97 Oxygen Delivery 08/15/21 23:03 08/16/21 00:00 08/16/21 02:00 Temperature 36.4 C L 36.4 C L Pulse Rate 93 92 93 Respiratory Rate 16 16 Blood Pressure 111/74 111/74 Pulse Oximetry 97 97 Oxygen Delivery 08/16/21 03:03 08/16/21 03:36 08/16/21 04:00 Temperature 37.1 C 37.1 C Pulse Rate 98 98 109 H Respiratory Rate 18 18 Blood Pressure 100/67 100/67 Pulse Oximetry 94 94 Oxygen Delivery 08/16/21 07:03 08/16/21 11:03 Temperature 36.7 C 37.1 C Pulse Rate 89 85 Respiratory Rate 18 16 Blood Pressure 86/58 L 88/57 L Pulse Oximetry 97 97 Oxygen Delivery Intake/Output Intake/Output: Intake & Output 08/13/21 08/14/21 08/15/21 08/16/21 23:59 23:59 23:59 23:59 Intake Total 275 550 50 240 Output Total 0 0 0 Balance 275 550 50 240 Meds/Results Medications: Active Medications Generic Name Dose Route Start Last Admin Trade Name Freq PRN Reason Stop Dose Admin Acetaminophen 650 mg 08/09/21 16:31 08/14/21 17:30 Acetaminophen 325 Mg Tablet PO 650 mg Q4H PRN Administration Pain 1-3 Hydrocodone Bitart/Acetaminophen 1 tab 08/10/21 11:13 08/16/21 04:31 Hydrocodone/Acetaminophen (*Crx) 5-325 Mg Tablet PO 1 tab Q3H PRN Administration Pain Rated 4-6 Albuterol 1 puff 08/09/21 01:09 Albuterol Sulfate (*Sp) Aerosol 1 Puff INHALATION BID PRN Shortness Of Breath Aspirin 81 mg 08/11/21 08:00 08/16/21 08:44 Aspirin 81 Mg Chewable Tablet PO 81 mg DAILY@0800 IRVING Administration Bisacodyl 10 mg 08/10/21 11:13 Bisacodyl 10 Mg Suppository RECTAL DAILY AL
[2021-08-16] MEDS: GABAPENTIN 100 MG CAPSULE PO (20:29)
[2021-08-16] MEDS: GENTAMICIN SULFATE 0.1% CR 15 GM TUBE 1 APPLIC TOPICAL (20:29)
[2021-08-16] MEDS: SERTRALINE HCL 50 MG TABLET PO (20:30)
[2021-08-16] MEDS: ALBUTEROL SULFATE (*SP) AEROSOL 1 PUFF INHALATION (23:44)
[2021-08-16] MEDS: ALBUTEROL SULFATE NEB 2.5 MG/3 ML INH 5 MG INHALATION (23:59)
[2021-08-17] VITALS (18 sets, daily range): BP systolic 54–102; BP diastolic 40–82; PULSE 73–101; RESP 14–18; TEMP 36.4–36.6; O2SAT 92–100
[2021-08-17 00:44] LABS: Alveolar/Arterial O2 Gradient 145.5 mmHg; Base Excess ABG 1.5 mEq/l (+/-2.0); Carboxyhemoglobin 0.3 % THb (0-2.0); Device NASAL CANNULA; Fractional Inspired Oxygen 44 %; HCO3 ABG 24.7 mEq/l (22.0-26.0); Methemoglobin ABG 0.1 %THb (0-1.5); Modified Allen's Test Pass; Oxygen Content ABG 18.8 %vol (16.0-22.0); Oxygen Saturation ABG 98.8 % (95.0-100.0); Oxyhemoglobin 97.5 % THb (90.0-100.0); PCO2 ABG 34.5 mmHg (35.0-45.0); PO2 ABG 128.9 mmHg (80.0-100.0); PO2 FiO2 Ratio Arterial Blood 2.93 %; Reduced Hemoglobin 2.1 %THb (0-5.0); Site Drawn LEFT RADIAL; Total Hemoglobin 13.6 g/dL (12.0-18.0); pH ABG 7.472 (7.350-7.450)
[2021-08-17] MEDS: MIDODRINE HCL 10 MG TABLET PO ×3 (03:27→21:30)
[2021-08-17] MEDS: ACETAMINOPHEN 325 MG TABLET 650 MG PO ×3 (04:46→18:20)
[2021-08-17] MEDS: LEVOTHYROXINE SODIUM 25 MCG TABLET PO (04:47)
[2021-08-17 05:10] LABS: Hematocrit 36.8 % (37.0-47.0); Hemoglobin 11.2 g/dL (12.0-15.0); Mean Corpuscular HGB Conc 30.4 g/dl (32-36); Mean Corpuscular Hemoglobin 31.9 pg (26-34); Mean Corpuscular Volume 104.8 fl (80-100); Mean Platelet Volume 11.2 fl (7.4-10.4); Platelet Count Result 211 k/mm3 (150-375); Red Blood Count 3.51 M/mm3 (4.2-5.4); Red Cell Distribution Width 17.7 % (11.5-14.5); White Blood Count 14.9 K/mm3 (4.5-10.0)
[2021-08-17 05:30] LABS: Albumin Level 2.6 g/dL (3.5-5.1); Anion Gap 13 mmol/L (8-16); Blood Urea Nitrogen 49 mg/dL (7-17); Calcium 8.7 mg/dL (8.4-10.2); Carbon Dioxide 26 mmol/L (22-30); Chloride 95 mmol/L (98-107); Estimated CRCL calculation 6 ml/min; Estimated Glomerular Filt Rate 5; Glucose 133 mg/dL (65-110); Phosphorus 6.1 mg/dL (2.5-4.5); Potassium 3.4 mmol/L (3.4-5.0); Sodium 134 mmol/L (137-145)
[2021-08-17] MEDS: SODIUM CHLORIDE 0.9% IV 250 ML IV CONT ×2 (06:36→07:30)
[2021-08-17] MEDS: SODIUM BICARBONATE TAB 650 MG TABLET 1300 MG PO ×2 (09:25→17:32)
[2021-08-17] MEDS: ASPIRIN 81 MG CHEWABLE TABLET PO (09:26)
[2021-08-17] MEDS: SENNA/DOCUSATE SODIUM TABLET 2 TAB PO ×2 (09:30→17:32)
[2021-08-17] MEDS: PANTOPRAZOLE 40 MG TABLET PO (09:30)
[2021-08-17] MEDS: polyethylene glycoL 3350 17 GM POWD.PACK PO (09:30)
[2021-08-17] MEDS: HEPARIN SODIUM 5,000 UNITS/ML VIAL 5000 UNITS SUB-Q ×2 (10:12→21:30)
--- NOTE | 2021-08-17 10:50 | PM.IMPN ---
Progress Note: A&P Assessment and Plan (1) Fall from ground level: Code(s): W18.30XA - Fall on same level, unspecified, initial encounter Status: Acute (2) Closed subcapital fracture of neck of right femur: Qualifiers: Encounter type: initial encounter Qualified Code(s): S72.011A - Unspecified intracapsular fracture of right femur, initial encounter for closed fracture Code(s): S72.011A - Unspecified intracapsular fracture of right femur, initial encounter for closed fracture Status: Acute (3) Closed fracture of right distal radius: Qualifiers: Encounter type: initial encounter Fracture morphology: Colles' Qualified Code(s): S52.531A - Colles' fracture of right radius, initial encounter for closed fracture Code(s): S52.501A - Unspecified fracture of the lower end of right radius, initial encounter for closed fracture Status: Acute Assessment and Plan: Status post repair (4) End-stage renal disease on peritoneal dialysis: Code(s): N18.6 - End stage renal disease; Z99.2 - Dependence on renal dialysis Status: Acute Assessment and Plan: Hemodialysis per Nephrology. Ten no patient did have low blood pressure this morning. Likely from volume depletion. 500cc bolus correction blood pressure her blood pressure 81/54 baseline is 90s to 100s systolic. (5) Hypokalemia: Code(s): E87.6 - Hypokalemia Status: Acute Assessment and Plan: Monitor (6) Valvular heart disease: Code(s): I38 - Endocarditis, valve unspecified Status: Acute Assessment and Plan: No active issues. Monitor (7) Orthostatic hypotension: Code(s): I95.1 - Orthostatic hypotension Status: Acute Assessment and Plan: Continue midodrine. Monitor blood pressure, fluid bolus given this morning. Asymptomatic. (8) Systolic CHF: Code(s): I50.20 - Unspecified systolic (congestive) heart failure Status: Acute Assessment and Plan: Monitor (9) Abnormal TSH: Code(s): R79.89 - Other specified abnormal findings of blood chemistry Status: Acute (10) Leukocytosis: Code(s): D72.829 - Elevated white blood cell count, unspecified Status: Acute Assessment and Plan: White blood cell count 14. Afebrile. Blood cultures showed to low blood pressure. Patient does not make urine no urine cultures have been obtained (11) Right sided weakness: Code(s): R53.1 - Weakness Status: Acute Subjective Date/time seen: 08/17/21 10:50 No new complaints Review of Systems Review of Systems: 10 point ROS negative except as stated in HPI / Subjective Objective Data Vital Signs Vital Signs: Vital Signs - 24 hr 08/16/21 11:03 08/16/21 12:00 08/16/21 15:03 Temperature 98.8 F 97.9 F Pulse Rate 85 91 98 Respiratory Rate 16 18 Blood Pressure 88/57 L 90/67 L Pulse Oximetry 97 97 Oxygen Delivery 08/16/21 16:00 08/16/21 19:03 08/16/21 20:00 Temperature 97.8 F Pulse Rate 87 95 87 Respiratory Rate 18 Blood Pressure 88/50 L Pulse Oximetry 94 Oxygen Delivery 08/16/21 23:36 08/17/21 00:00 08/16/21 21:25 Temperature 97.2 F L Pulse Rate 81 82 Respiratory Rate 18 Blood Pressure 112/73 Pulse Oximetry 88 L 94 Oxygen Delivery Room Air 08/16/21 23:40 08/17/21 00:00 08/17/21 00:20 Temperature Pulse Rate 87 91 Respiratory Rate 14 14 Blood Pressure Pulse Oximetry 84 L Oxygen Delivery Room Air 08/17/21 04:01 08/17/21 04:00 08/17/21 06:10 Temperature 97.8 F Pulse Rate 87 83 Respiratory Rate 18 Blood Pressure 54/42 L 55/40 L Pulse Oximetry 100 Oxygen Delivery 08/17/21 07:18 08/17/21 07:54 08/17/21 09:21 Temperature 97.8 F Pulse Rate 87 Respiratory Rate 18 Blood Pressure 55/40 L 81/54 L 81/54 L Pulse Oximetry Oxygen Delivery Intake/Output Intake/Output: Intake & Output 08/14/21
--- NOTE | 2021-08-17 11:22 | PM.PNNEP ---
Progress Note: A&P Additional Plan 1. Ruby has end-stage renal disease. She is on peritoneal dialysis Fluid clear and flows good. Not much removed. 2. hypertension no longer an issue 3. orthostatic hypotension. She is on midodrine. Her blood pressure was low overnight, in the 50s. She received I 0.5L of saline bolus last night. This morning I wrote for 25 g of albumin. Her blood pressure seems to have improved since then. Discussed with Dr. Sultana. 4. sleep apnea She does not use a CPAP machine since she lost weight. 5. pre diabetes Sugars under good control 6. valvular heart disease . moderate aortic stenosis, moderate to severe mitral regurgitation, moderate pulmonary hypertension, a left ventricular ejection fraction of only 20-25%, and severely enlarged LV chamber. She also has grade 2 diastolic dysfunction. Cardiology is seeing the patient. 7. fractured right hip Getting supportive care and physical therapy 8. GERD she is on pantoprazole 9. anemia hemoglobin is up to 11.6. Will hold on the Epogen. 10. renal osteodystrophy Phosphorus level was very high on admission. now slightly high. Continue sevelamer. Bone scan is negative. PTH is target and phosphorus has improved to normal with binders. the patient has no skin manifestations of calciphylaxis. The calves are not indurated but just tender. Will continue to observe Subjective Date/time seen: 08/17/21 11:22 Interval history: patient feels about the same. she has no pain when she lies still. Exam Narrative: WDWN in NAD skin no rash head ncat lungs clear bilateral cor reg no rub or gallop abd BS+ nontender and soft ext trace edema . Still has some tenderness in the calves. Objective Data Vital Signs Vital Signs: Vital Signs - 24 hr 08/16/21 12:00 08/16/21 15:03 08/16/21 16:00 Temperature 36.6 C Pulse Rate 91 98 87 Respiratory Rate 18 Blood Pressure 90/67 L Pulse Oximetry 97 Oxygen Delivery 08/16/21 19:03 08/16/21 20:00 08/16/21 23:36 Temperature 36.6 C 36.2 C L Pulse Rate 95 87 81 Respiratory Rate 18 18 Blood Pressure 88/50 L 112/73 Pulse Oximetry 94 88 L Oxygen Delivery 08/17/21 00:00 08/16/21 21:25 08/16/21 23:40 Temperature Pulse Rate 82 Respiratory Rate Blood Pressure Pulse Oximetry 94 84 L Oxygen Delivery Room Air Room Air 08/17/21 00:00 08/17/21 00:20 08/17/21 04:01 Temperature 36.6 C Pulse Rate 87 91 87 Respiratory Rate 14 14 18 Blood Pressure 54/42 L Pulse Oximetry 100 Oxygen Delivery 08/17/21 04:00 08/17/21 06:10 08/17/21 07:18 Temperature 36.6 C Pulse Rate 83 87 Respiratory Rate 18 Blood Pressure 55/40 L 55/40 L Pulse Oximetry Oxygen Delivery 08/17/21 07:54 08/17/21 09:21 Temperature Pulse Rate Respiratory Rate Blood Pressure 81/54 L 81/54 L Pulse Oximetry Oxygen Delivery Intake/Output Intake/Output: Intake & Output 08/14/21 08/15/21 08/16/21 08/17/21 23:59 23:59 23:59 23:59 Intake Total 550 50 360 120 Output Total 0 0 370 Balance 550 50 360 -250 Meds/Results Medications: Active Medications Generic Name Dose Route Start Last Admin Trade Name Freq PRN Reason Stop Dose Admin Acetaminophen 650 mg 08/09/21 16:31 08/17/21 04:46 Acetaminophen 325 Mg Tablet PO 650 mg Q4H PRN Administration Pain 1-3 Hydrocodone Bitart/Acetaminophen 1 tab 08/10/21 11:13 08/16/21 04:31 Hydrocodone/Acetaminophen (*Crx) 5-325 Mg Tablet PO 1 tab Q3H PRN Administration Pain Rated 4-6 Albuterol 1 puff 08/09/21 01:09 08/16/21 23:44 Albuterol Sulfate (*Sp) Aerosol 1 Puff INHALATION 1 puff BID PRN Administration Shortness Of Breath Aspirin 81 mg 08/11/21 08:00 08/17/21 09:26 Aspirin 81 Mg Chewable Tablet PO 81 mg DAILY@0800 IRVING Administration Bisacodyl 10 mg 08/10/21 11:13 Bisacodyl 10 Mg Suppository RECTAL DAILY PRN C
[2021-08-17 13:38] LABS: Hepatitis B DNA PCR <1.00 Log IU/mL; Hepatitis B DNA PCR <10 IU/mL
[2021-08-17] MEDS: diazePAM (*CRX) 5 MG TABLET PO (20:00)
[2021-08-17] MEDS: SERTRALINE HCL 50 MG TABLET PO (21:30)
[2021-08-17] MEDS: GABAPENTIN 100 MG CAPSULE PO (21:30)
[2021-08-18] VITALS (15 sets, daily range): BP systolic 85–108; BP diastolic 40–71; PULSE 78–100; RESP 12–18; TEMP 36–36.6; O2SAT 91–100
[2021-08-18 03:01] LABS: Hepatitis Be Antibody Nonreactive
[2021-08-18 05:13] LABS: Hematocrit 35.3 % (37.0-47.0); Hemoglobin 11.5 g/dL (12.0-15.0); Mean Corpuscular HGB Conc 32.6 g/dl (32-36); Mean Corpuscular Volume 101.1 fl (80-100); Mean Platelet Volume 10.9 fl (7.4-10.4); Platelet Count Result 208 k/mm3 (150-375); Red Blood Count 3.49 M/mm3 (4.2-5.4); Red Cell Distribution Width 17.9 % (11.5-14.5); White Blood Count 10.3 K/mm3 (4.5-10.0)
[2021-08-18 05:34] LABS: Albumin Level 2.4 g/dL (3.5-5.1); Anion Gap 10 mmol/L (8-16); Blood Urea Nitrogen 45 mg/dL (7-17); Calcium 8.3 mg/dL (8.4-10.2); Carbon Dioxide 28 mmol/L (22-30); Chloride 95 mmol/L (98-107); Estimated CRCL calculation 6 ml/min; Estimated Glomerular Filt Rate 6; Glucose 93 mg/dL (65-110); Phosphorus 4.7 mg/dL (2.5-4.5); Potassium 3.2 mmol/L (3.4-5.0); Sodium 133 mmol/L (137-145)
[2021-08-18] MEDS: MIDODRINE HCL 10 MG TABLET PO ×3 (06:11→21:28)
[2021-08-18] MEDS: LEVOTHYROXINE SODIUM 25 MCG TABLET PO (06:12)
--- NOTE | 2021-08-18 08:30 | PC.NURSE ---
pt sleeping soundly, allowed to sleep this a.m will monitor
[2021-08-18] MEDS: SEVELAMER CARBONATE 800 MG TABLET 3200 MG PO ×3 (09:38→16:57)
[2021-08-18] MEDS: ASPIRIN 81 MG CHEWABLE TABLET PO (09:38)
[2021-08-18] MEDS: PANTOPRAZOLE 40 MG TABLET PO (09:38)
[2021-08-18] MEDS: HEPARIN SODIUM 5,000 UNITS/ML VIAL 5000 UNITS SUB-Q ×2 (09:39→21:27)
[2021-08-18] MEDS: SODIUM BICARBONATE TAB 650 MG TABLET 1300 MG PO ×2 (09:39→16:57)
--- NOTE | 2021-08-18 10:06 | PM.IMPN ---
Progress Note: A&P Assessment and Plan (1) Fall from ground level: Code(s): W18.30XA - Fall on same level, unspecified, initial encounter Status: Acute (2) Closed subcapital fracture of neck of right femur: Qualifiers: Encounter type: initial encounter Qualified Code(s): S72.011A - Unspecified intracapsular fracture of right femur, initial encounter for closed fracture Code(s): S72.011A - Unspecified intracapsular fracture of right femur, initial encounter for closed fracture Status: Acute (3) Closed fracture of right distal radius: Qualifiers: Encounter type: initial encounter Fracture morphology: Colles' Qualified Code(s): S52.531A - Colles' fracture of right radius, initial encounter for closed fracture Code(s): S52.501A - Unspecified fracture of the lower end of right radius, initial encounter for closed fracture Status: Acute Assessment and Plan: Status post repair (4) End-stage renal disease on peritoneal dialysis: Code(s): N18.6 - End stage renal disease; Z99.2 - Dependence on renal dialysis Status: Acute Assessment and Plan: Hemodialysis per Nephrology. Ten no patient did have low blood pressure this morning. Likely from volume depletion. 500cc bolus correction blood pressure her blood pressure 81/54 baseline is 90s to 100s systolic. (5) Hypokalemia: Code(s): E87.6 - Hypokalemia Status: Acute Assessment and Plan: Monitor (6) Valvular heart disease: Code(s): I38 - Endocarditis, valve unspecified Status: Acute Assessment and Plan: No active issues. Monitor (7) Orthostatic hypotension: Code(s): I95.1 - Orthostatic hypotension Status: Acute Assessment and Plan: Continue midodrine. Monitor blood pressure, fluid bolus given this morning. Asymptomatic. (8) Systolic CHF: Code(s): I50.20 - Unspecified systolic (congestive) heart failure Status: Acute Assessment and Plan: Monitor (9) Abnormal TSH: Code(s): R79.89 - Other specified abnormal findings of blood chemistry Status: Acute (10) Leukocytosis: Code(s): D72.829 - Elevated white blood cell count, unspecified Status: Acute Assessment and Plan: White blood cell count 14. Afebrile. Blood cultures showed to low blood pressure. Patient does not make urine no urine cultures have been obtained (11) Right sided weakness: Code(s): R53.1 - Weakness Status: Acute Subjective Date/time seen: 08/18/21 10:06 No complaints Exam Narrative: General: alert and oriented Psych: appropriate mood nad affect Eyes: PERRLA Neck: Trachea midline, no new lesions Skin: no changes Lungs: CTA Cardiac: Normal S1,S2, no MGR ABD: soft, nd, nt, nbs Ext: no new lesions, no cce Vasc: Pulses intact Objective Data Vital Signs Vital Signs: Vital Signs - 24 hr 08/17/21 12:00 08/17/21 14:00 08/17/21 16:00 Temperature 97.9 F Pulse Rate 88 87 75 Respiratory Rate 18 Blood Pressure 90/55 L Pulse Oximetry 100 Oxygen Delivery 08/17/21 18:00 08/17/21 20:18 08/17/21 19:45 Temperature 97.9 F 97.6 F Pulse Rate 85 73 Respiratory Rate 18 18 Blood Pressure 83/56 L 85/55 L 88/60 L Pulse Oximetry 100 96 Oxygen Delivery 08/17/21 21:16 08/18/21 00:16 08/18/21 03:35 Temperature 97.1 F L 97.0 F L Pulse Rate 100 84 Respiratory Rate 18 16 Blood Pressure 90/58 L 95/62 L Pulse Oximetry 94 98 97 Oxygen Delivery Room Air 08/17/21 20:00 08/18/21 00:00 08/18/21 04:00 Temperature Pulse Rate 101 H 93 84 Respiratory Rate Blood Pressure Pulse Oximetry Oxygen Delivery 08/18/21 10:02 Temperature 97.4 F L Pulse Rate 86 Respiratory Rate 12 Blood Pressure 108/71 Pulse Oximetry 100 Oxygen Delivery Intake/Output Intake/Output: Intake & Output 08/15/21 08/16/21 08/17/21 08/18/21 23:59 23:59 23:59 23:59 Intake Total
--- NOTE | 2021-08-18 10:25 | PM.PNNEP ---
Progress Note: A&P Additional Plan 1. Ruby has end-stage renal disease. She is on peritoneal dialysis Fluid clear and flows good. Not much removed. Will continue current therapy. 2. hypertension no longer an issue 3. orthostatic hypotension. She is on midodrine. Her blood pressure is generally soft. We are taking is little off as we can with dialysis. Encouraged to increase p.o. intake. 4. sleep apnea She does not use a CPAP machine since she lost weight. 5. pre diabetes Sugars under good control 6. valvular heart disease . moderate aortic stenosis, moderate to severe mitral regurgitation, moderate pulmonary hypertension, a left ventricular ejection fraction of only 20-25%, and severely enlarged LV chamber. She also has grade 2 diastolic dysfunction. Cardiology is seeing the patient. 7. fractured right hip Getting supportive care and physical therapy 8. GERD she is on pantoprazole 9. anemia hemoglobin is up to 11.6. Will hold on the Epogen. 10. renal osteodystrophy Phosphorus level Is better. Calves are soft and not indurated. They are still somewhat tender. Skin lesions. She is able to flex and extend her feet. Subjective Date/time seen: 08/18/21 10:25 Interval history: patient feels about the same. No chest pain or shortness of breath. on PD and tolerating it well. fluid clear and flows good. seen at 8am Exam Narrative: WDWN in NAD skin no rash or sq nodules head ncat lungs clear bilateral cor reg no rub abd BS+ nontender and soft ext trace edema . Still has some tenderness in the calves. Objective Data Vital Signs Vital Signs: Vital Signs - 24 hr 08/17/21 12:00 08/17/21 14:00 08/17/21 16:00 Temperature 36.6 C Pulse Rate 88 87 75 Respiratory Rate 18 Blood Pressure 90/55 L Pulse Oximetry 100 Oxygen Delivery 08/17/21 18:00 08/17/21 20:18 08/17/21 19:45 Temperature 36.6 C 36.4 C Pulse Rate 85 73 Respiratory Rate 18 18 Blood Pressure 83/56 L 85/55 L 88/60 L Pulse Oximetry 100 96 Oxygen Delivery 08/17/21 21:16 08/18/21 00:16 08/18/21 03:35 Temperature 36.2 C L 36.1 C L Pulse Rate 100 84 Respiratory Rate 18 16 Blood Pressure 90/58 L 95/62 L Pulse Oximetry 94 98 97 Oxygen Delivery Room Air 08/17/21 20:00 08/18/21 00:00 08/18/21 04:00 Temperature Pulse Rate 101 H 93 84 Respiratory Rate Blood Pressure Pulse Oximetry Oxygen Delivery 08/18/21 10:02 Temperature 36.3 C L Pulse Rate 86 Respiratory Rate 12 Blood Pressure 108/71 Pulse Oximetry 100 Oxygen Delivery Intake/Output Intake/Output: Intake & Output 08/15/21 08/16/21 08/17/21 08/18/21 23:59 23:59 23:59 23:59 Intake Total 50 360 120 220 Output Total 0 0 370 0 Balance 50 360 -250 220 Meds/Results Medications: Active Medications Generic Name Dose Route Start Last Admin Trade Name Freq PRN Reason Stop Dose Admin Acetaminophen 650 mg 08/09/21 16:31 08/17/21 18:20 Acetaminophen 325 Mg Tablet PO 650 mg Q4H PRN Administration Pain 1-3 Hydrocodone Bitart/Acetaminophen 1 tab 08/10/21 11:13 08/16/21 04:31 Hydrocodone/Acetaminophen (*Crx) 5-325 Mg Tablet PO 1 tab Q3H PRN Administration Pain Rated 4-6 Albuterol 1 puff 08/09/21 01:09 08/16/21 23:44 Albuterol Sulfate (*Sp) Aerosol 1 Puff INHALATION 1 puff BID PRN Administration Shortness Of Breath Aspirin 81 mg 08/11/21 08:00 08/18/21 09:38 Aspirin 81 Mg Chewable Tablet PO 81 mg DAILY@0800 IRVING Administration Bisacodyl 10 mg 08/10/21 11:13 Bisacodyl 10 Mg Suppository RECTAL DAILY PRN Constipation Diazepam 5 mg 08/10/21 11:13 08/17/21 20:00 Diazepam (*Crx) 5 Mg Tablet PO 5 mg Q8H PRN Administration Muscle Spasm Gabapentin 100 mg 08/09/21 21:00 08/17/21 21:30 Gabapentin 100 Mg Capsule PO 100 mg HS IRVING Administration Gentamicin Sulfate 1 applic 08/09/21 21:00 07/30
--- NOTE | 2021-08-18 10:43 | PCNFU ---
Addendum entered by Nadia Fields RD, LDN 08/18/21 15:06: Pressure ulcer screen: Skin assessed by wound nursing. Deep Tissue Pressure Ulcer reported on left heel. MD orders for Stone BID for wound healing. Will continue monitoring every 3 days. Original Note: Nutrition Follow-Up Complete: Inadequate oral intake related to poor appetite as evidenced by NPO diet. goal: Increased oral intake of meals to 75% or more with Nepro Carbsteady (425kcal, 19gm pro each) BID. Patient has limited progress towards goal. We will continue current goal. Pt current nutrition is Renal Dialysis. Last recorded weight is 60.4 kg-stable Bowel Motility:+BM reported 08/17 Labs Reviewed: Cr 7.0,BUN 45, Na 135, Hct 35.3,Hgb 11.5, Alb 2.4 Meds Noted:Zofran, Sodium Bicarbonate, Protonix, Synthroid, Neurontin Skin: WNL Additional Notes: Patient currently on a Minced and Moist, Level 5/Renal Dialysis Diet. Oral Intake has been poor 0-25% of most meals. MD orders for Nepro shakes added BID providing an additional 425 kcals and 19 gms protein. Po intake encouraged. Agree with diet orders. Monitoring: Monitor oral intake % of meals and supplements, changes in weight, and labs every 3 days.
[2021-08-18] MEDS: ACETAMINOPHEN 325 MG TABLET 650 MG PO (13:45)
[2021-08-18] MEDS: SERTRALINE HCL 50 MG TABLET PO (21:28)
[2021-08-18] MEDS: GABAPENTIN 100 MG CAPSULE PO (21:28)
[2021-08-19] VITALS (13 sets, daily range): BP systolic 92–128; BP diastolic 50–74; PULSE 76–97; RESP 16–18; TEMP 35.9–36.7; O2SAT 94–100; BMI 11.0
[2021-08-19 05:13] LABS: Hematocrit 38.2 % (37.0-47.0); Mean Corpuscular HGB Conc 31.4 g/dl (32-36); Mean Corpuscular Hemoglobin 32.4 pg (26-34); Mean Corpuscular Volume 103.2 fl (80-100); Mean Platelet Volume 10.8 fl (7.4-10.4); Platelet Count Result 221 k/mm3 (150-375); Red Cell Distribution Width 18.2 % (11.5-14.5)
[2021-08-19 05:26] LABS: Albumin Level 2.4 g/dL (3.5-5.1); Anion Gap 9 mmol/L (8-16); Blood Urea Nitrogen 47 mg/dL (7-17); Calcium 8.3 mg/dL (8.4-10.2); Carbon Dioxide 30 mmol/L (22-30); Chloride 94 mmol/L (98-107); Estimated CRCL calculation 7 ml/min; Estimated Glomerular Filt Rate 6; Glucose 104 mg/dL (65-110); Phosphorus 4.6 mg/dL (2.5-4.5); Potassium 3.2 mmol/L (3.4-5.0); Sodium 133 mmol/L (137-145)
[2021-08-19] MEDS: ACETAMINOPHEN 325 MG TABLET 650 MG PO (05:59)
[2021-08-19] MEDS: LEVOTHYROXINE SODIUM 25 MCG TABLET PO (06:01)
[2021-08-19] MEDS: MIDODRINE HCL 10 MG TABLET PO ×3 (06:01→21:09)
[2021-08-19] MEDS: SEVELAMER CARBONATE 800 MG TABLET 3200 MG PO ×3 (08:31→17:09)
[2021-08-19] MEDS: HEPARIN SODIUM 5,000 UNITS/ML VIAL 5000 UNITS SUB-Q ×2 (08:31→21:10)
[2021-08-19] MEDS: PANTOPRAZOLE 40 MG TABLET PO (08:31)
[2021-08-19] MEDS: SODIUM BICARBONATE TAB 650 MG TABLET 1300 MG PO ×2 (08:32→17:09)
[2021-08-19] MEDS: ASPIRIN 81 MG CHEWABLE TABLET PO (08:32)
--- NOTE | 2021-08-19 10:52 | PM.IMPN ---
Progress Note: A&P Assessment and Plan (1) Fall from ground level: Code(s): W18.30XA - Fall on same level, unspecified, initial encounter Status: Acute Assessment and Plan: Monitor, PTOT (2) Closed subcapital fracture of neck of right femur: Qualifiers: Encounter type: initial encounter Qualified Code(s): S72.011A - Unspecified intracapsular fracture of right femur, initial encounter for closed fracture Code(s): S72.011A - Unspecified intracapsular fracture of right femur, initial encounter for closed fracture Status: Acute Assessment and Plan: Doing well, will need skilled placement. (3) Closed fracture of right distal radius: Qualifiers: Encounter type: initial encounter Fracture morphology: Colles' Qualified Code(s): S52.531A - Colles' fracture of right radius, initial encounter for closed fracture Code(s): S52.501A - Unspecified fracture of the lower end of right radius, initial encounter for closed fracture Status: Acute Assessment and Plan: Status post repair (4) End-stage renal disease on peritoneal dialysis: Code(s): N18.6 - End stage renal disease; Z99.2 - Dependence on renal dialysis Status: Acute Assessment and Plan: Hemodialysis or PD per Nephrology. Vitals have been stable. Patient does have hemodialysis catheter in. Has not received hemodialysis recently. Need to make decision about PD versus hemodialysis as patient cannot go to skilled facility with PD. (5) Hypokalemia: Code(s): E87.6 - Hypokalemia Status: Acute Assessment and Plan: Monitor (6) Valvular heart disease: Code(s): I38 - Endocarditis, valve unspecified Status: Acute Assessment and Plan: No active issues. Monitor (7) Orthostatic hypotension: Code(s): I95.1 - Orthostatic hypotension Status: Acute Assessment and Plan: Continue midodrine. Monitor blood pressure. (8) Systolic CHF: Code(s): I50.20 - Unspecified systolic (congestive) heart failure Status: Acute Assessment and Plan: Monitor Appears compensated (9) Abnormal TSH: Code(s): R79.89 - Other specified abnormal findings of blood chemistry Status: Acute (10) Leukocytosis: Code(s): D72.829 - Elevated white blood cell count, unspecified Status: Acute Assessment and Plan: Monitor, no fever. infection not likely (11) Right sided weakness: Code(s): R53.1 - Weakness Status: Acute Additional Plan 08/13/2021 interval history: 66-year-old female s/p fall right hip POD# 3, seen by her surgeon, improved recommended to continue WBAT with Walker care for patient has high risk of fall, will continue pain management and PT OT pending SNF, with history of end-stage renal disease on peritoneal dialysis seen by Dr. River patient is getting daily PD, her electrolytes within normal limits, patient with significant aortic stenosis and mitral valve regurgitation and severe cardiomyopathy patient remains clinically stable and asymptomatic, will continue to monitor patient is waiting for placement will benefit going to SNF for rehab. 08/14/2021 interval history:? 66-year-old female s/p fall?right hip POD# 4,? seen by her surgeon, improving recommended to continue WBAT with Walker? care for patient has high risk of fall, will continue pain management and PT OT pending SNF,? with history of? end-stage renal disease on peritoneal dialysis seen by Dr. River? patient is getting daily PD,? her electrolytes within normal limits, patient with significant aortic stenosis and mitral valve?regurgitation and severe cardiomyopathy, patient hypotensive seen by public relations consultant unable to treat, due to PD, patient is already on max dose of midodrine 10 mg t.i.d. patient remains clinically stable and asymptomatic, will continue to monitor, unable to send the patient to rehab due to hypotension and unable
--- NOTE | 2021-08-19 16:51 | PM.PNNEP ---
Progress Note: A&P Additional Plan 1. Ruby has end-stage renal disease. She is on peritoneal dialysis fluid clear and flows good. about 700cc removed. seen at 7:45am plan for a session of HD tomorrow to be sure she tolerates dialysis. 2. hypertension no longer an issue 3. hypotension. improved. systolic in the 90 to 110 range. 4. sleep apnea She does not use a CPAP machine since she lost weight. 5. pre diabetes Sugars under good control 6. valvular heart disease . moderate aortic stenosis, moderate to severe mitral regurgitation, moderate pulmonary hypertension, a left ventricular ejection fraction of only 20-25%, and severely enlarged LV chamber. She also has grade 2 diastolic dysfunction. Cardiology is seeing the patient. 7. fractured right hip Getting supportive care and physical therapy 8. GERD she is on pantoprazole 9. anemia hemoglobin is up to 11.6. Will hold on the Epogen. 10. renal osteodystrophy Phosphorus level Is now normal. no more induration. I doubt that this is calciphyllaxis. Subjective Date/time seen: 08/19/21 16:51 Interval history: patient feels about the same. resting in bed comfortably. no cp or sob. legs feel gradually better. Exam Narrative: WDWN in NAD skin no rash or sq nodules head ncat lungs clear bilateral cor reg no rub abd BS+ nontender and soft ext trace edema . Still has some tenderness in the calves.no more induration. Objective Data Vital Signs Vital Signs: Vital Signs - 24 hr 08/18/21 18:15 08/18/21 19:33 08/18/21 21:28 Temperature 36.3 C L 36.0 C L Pulse Rate 89 82 Respiratory Rate 12 18 Blood Pressure 89/64 L 101/64 Pulse Oximetry 91 96 95 Oxygen Delivery Room Air 08/19/21 00:15 08/19/21 03:47 08/18/21 20:50 Temperature 36.1 C L 35.9 C L Pulse Rate 76 80 78 Respiratory Rate 16 18 Blood Pressure 128/74 110/69 Pulse Oximetry 100 98 Oxygen Delivery 08/19/21 00:00 08/19/21 04:00 08/19/21 08:48 Temperature Pulse Rate 80 84 Respiratory Rate Blood Pressure Pulse Oximetry Oxygen Delivery Room Air 08/19/21 10:00 08/19/21 14:00 08/19/21 08:00 Temperature 36.7 C 36.4 C Pulse Rate 86 86 97 Respiratory Rate 18 16 Blood Pressure 98/54 L 94/50 L Pulse Oximetry 97 99 Oxygen Delivery 08/19/21 12:00 08/19/21 16:20 Temperature Pulse Rate 88 91 Respiratory Rate Blood Pressure Pulse Oximetry Oxygen Delivery Intake/Output Intake/Output: Intake & Output 08/16/21 08/17/21 08/18/21 08/19/21 23:59 23:59 23:59 23:59 Intake Total 360 120 470 380 Output Total 0 370 526 468 Balance 360 -250 -56 -88 Meds/Results Medications: Active Medications Generic Name Dose Route Start Last Admin Trade Name Freq PRN Reason Stop Dose Admin Acetaminophen 650 mg 08/09/21 16:31 08/19/21 05:59 Acetaminophen 325 Mg Tablet PO 650 mg Q4H PRN Administration Pain 1-3 Hydrocodone Bitart/Acetaminophen 1 tab 08/10/21 11:13 08/16/21 04:31 Hydrocodone/Acetaminophen (*Crx) 5-325 Mg Tablet PO 08/28/21 11:12 1 tab Q3H PRN Administration Pain Rated 4-6 Albuterol 1 puff 08/09/21 01:09 08/16/21 23:44 Albuterol Sulfate (*Sp) Aerosol 1 Puff INHALATION 1 puff BID PRN Administration Shortness Of Breath Aspirin 81 mg 08/11/21 08:00 08/19/21 08:32 Aspirin 81 Mg Chewable Tablet PO 81 mg DAILY@0800 IRVING Administration Bisacodyl 10 mg 08/10/21 11:13 Bisacodyl 10 Mg Suppository RECTAL DAILY PRN Constipation Diazepam 5 mg 08/10/21 11:13 08/17/21 20:00 Diazepam (*Crx) 5 Mg Tablet PO 08/28/21 11:12 5 mg Q8H PRN Administration Muscle Spasm Gabapentin 100 mg 08/09/21 21:00 08/18/21 21:28 Gabapentin 100 Mg Capsule PO 100 mg HS IRVING Administration Gentamicin Sulfate 1 applic 08/09/21 21:00 08/18/21 21:25 Gentamicin Sulfate 0.1% Cr 15 Gm Tube TOPICAL 09/02/21 20:59 Not Given HS S
[2021-08-19] MEDS: GABAPENTIN 100 MG CAPSULE PO (21:09)
[2021-08-19] MEDS: SERTRALINE HCL 50 MG TABLET PO (21:10)
[2021-08-20] VITALS (24 sets, daily range): BP systolic 72–124; BP diastolic 43–72; PULSE 62–99; RESP 16–18; TEMP 35.1–37; O2SAT 93–99
[2021-08-20] MEDS: HYDROcodone/acetaminophen (*CRX) 5-325 MG TABLET 1 TAB PO (04:09)
[2021-08-20] MEDS: MIDODRINE HCL 10 MG TABLET PO ×3 (04:53→21:22)
[2021-08-20] MEDS: LEVOTHYROXINE SODIUM 25 MCG TABLET PO (04:53)
[2021-08-20 05:10] LABS: Hematocrit 36.5 % (37.0-47.0); Hemoglobin 11.2 g/dL (12.0-15.0); Mean Corpuscular HGB Conc 30.7 g/dl (32-36); Mean Corpuscular Hemoglobin 31.9 pg (26-34); Platelet Count Result 218 k/mm3 (150-375); Red Blood Count 3.51 M/mm3 (4.2-5.4); Red Cell Distribution Width 18.3 % (11.5-14.5); White Blood Count 14.6 K/mm3 (4.5-10.0)
[2021-08-20 05:24] LABS: Albumin Level 2.4 g/dL (3.5-5.1); Anion Gap 10 mmol/L (8-16); Blood Urea Nitrogen 60 mg/dL (7-17); Carbon Dioxide 30 mmol/L (22-30); Chloride 91 mmol/L (98-107); Estimated CRCL calculation 6 ml/min; Estimated Glomerular Filt Rate 6; Glucose 88 mg/dL (65-110); Phosphorus 3.9 mg/dL (2.5-4.5); Potassium 3.4 mmol/L (3.4-5.0); Sodium 131 mmol/L (137-145)
--- NOTE | 2021-08-20 07:40 | PM.PNORT ---
Progress Note: A&P Assessment and Plan (1) Closed subcapital fracture of neck of right femur: Qualifiers: Encounter type: initial encounter Qualified Code(s): S72.011A - Unspecified intracapsular fracture of right femur, initial encounter for closed fracture Code(s): S72.011A - Unspecified intracapsular fracture of right femur, initial encounter for closed fracture Status: Acute Assessment and Plan: POD #10: Right Hip Bipolar RT wrist fx Continue PT/OT. WBAT. Walker. HIGH FALL RISK. Continue pain control. Ice hip. Protect skin. SCDs. Incentive Spirometry Use reviewed. Monitor Dressing. Change prior to discharge. Bowel Regimen. Dispo: SNF pending progress with PT/OT and medical stability. Follow up scheduled. (2) Closed fracture of right distal radius: Qualifiers: Encounter type: initial encounter Fracture morphology: Colles' Qualified Code(s): S52.531A - Colles' fracture of right radius, initial encounter for closed fracture Code(s): S52.501A - Unspecified fracture of the lower end of right radius, initial encounter for closed fracture Status: Acute Assessment and Plan: Patient fit with velcro splint. Conservative treatment. Ice. Elevate. Subjective Subjective Date/Time Seen: 08/20/21 07:40 Post Op day: 10 Principal diagnosis: RT hip fx Interval history: Patient awake. States pain right hip and right wrist improved. No new complaints. Exam Const: General: comfortable and no acute distress Resp: Effort & Inspection: normal respiratory effort Cardio: Rate: regular rate Rhythm: regular rhythm GI: Inspection: non-distended Skin: General skin exam: normal color Other: Incision right hip c/d/i. Surrounding tissue without redness/warmth. Mild swelling consistent with recent surgery. No drainage. Neuro: Cognition (Neuro): normal cognition Speech: normal speech Extrem: Right lower extremity: normal to inspection, normal capillary refill, hip/thigh Details: swelling Location: at the hip, abnormal ROM (limited consistent with recent surgery ) Details: pain with active ROM during and pain with passive ROM during and other (Incision clean and dry, Dressing in place); no tenderness, no deformity and no unusual warmth, knee Details: normal to inspection; no tenderness and no swelling, lower leg (Negative Carlos's Sign ) Details: normal to inspection and no edema; no tenderness, ankle (+ankle dorsiflexion/plantarflexion) Details: normal to inspection and no edema; no tenderness, no swelling and no ecchymosis and foot Details: normal capillary refill, toes with normal ROM, vascular exam Details: dorsalis pedis pulse present and motor-sensory exam Details: light-touch normal; no tenderness Objective Data Vital Signs Vital Signs: Vital Signs - 24 hr 08/19/21 08:48 08/19/21 10:00 08/19/21 14:00 Temperature 98.0 F 97.6 F Pulse Rate 86 86 Respiratory Rate 18 16 Blood Pressure 98/54 L 94/50 L Pulse Oximetry 97 99 Oxygen Delivery Room Air 08/19/21 08:00 08/19/21 12:00 08/19/21 16:20 Temperature Pulse Rate 97 88 91 Respiratory Rate Blood Pressure Pulse Oximetry Oxygen Delivery 08/19/21 18:00 08/19/21 19:37 08/19/21 20:00 Temperature 98.1 F 96.8 F L Pulse Rate 90 78 85 Respiratory Rate 16 18 Blood Pressure 95/65 L 92/62 L Pulse Oximetry 100 94 Oxygen Delivery 08/19/21 20:36 08/19/21 20:00 08/20/21 00:00 Temperature Pulse Rate 91 Respiratory Rate Blood Pressure Pulse Oximetry 94 Oxygen Delivery Room Air Room Air 08/20/21 00:12 08/20/21 04:43 08/20/21 04:00 Temperature 97.3 F L 97.1 F L Pulse Rate 89 82 89 Respiratory Rate 18 18 Blood Pressure 99/60 L 80/58 L Pulse Oximetry 98 95 Oxygen Delivery 08/20/21 05:32 Temperature Pulse Rate Respiratory Rate Blood Pressure 98/72 L Pulse Oximetry Oxygen Delivery Intake/Output Intake/Output: Intake & Output
[2021-08-20] MEDS: SEVELAMER CARBONATE 800 MG TABLET 3200 MG PO ×2 (08:02→16:26)
[2021-08-20] MEDS: ASPIRIN 81 MG CHEWABLE TABLET PO (08:02)
[2021-08-20] MEDS: SODIUM BICARBONATE TAB 650 MG TABLET 1300 MG PO ×2 (08:03→16:26)
[2021-08-20] MEDS: PANTOPRAZOLE 40 MG TABLET PO (08:03)
[2021-08-20] MEDS: HEPARIN SODIUM 5,000 UNITS/ML VIAL 5000 UNITS SUB-Q ×2 (08:03→21:22)
--- NOTE | 2021-08-20 09:53 | PCPTNOTE ---
The patient treatment was not able to be completed this morning 08/20/2021 due to patient out of room for dialysis. Will plan to continue treatment per plan of care.
--- NOTE | 2021-08-20 10:36 | PCSTNOTE ---
Patient out of room when therapist attempted visit; considering discharge at this time.
[2021-08-20] MEDS: ALBUMIN HUMAN 25% 12.5 GM/50ML 50 ML IVPB (10:48)
[2021-08-20] MEDS: SODIUM CHLORIDE 0.9% IV 1,000 ML 999 ML IV CONT (10:48)
--- NOTE | 2021-08-20 12:50 | PM.PNNEP ---
Progress Note: A&P Additional Plan 1. Ruby has end-stage renal disease. She is on peritoneal dialysis will get hemodialysis today to make sure the catheter is working. Then insurance will okay for her transfer to outpatient rehab. 2. hypertension no longer an issue 3. hypotension. Blood pressure seems to be better. 4. sleep apnea She does not use a CPAP machine since she lost weight. 5. pre diabetes Sugars under good control 6. valvular heart disease . moderate aortic stenosis, moderate to severe mitral regurgitation, moderate pulmonary hypertension, a left ventricular ejection fraction of only 20-25%, and severely enlarged LV chamber. She also has grade 2 diastolic dysfunction. Cardiology is seeing the patient. 7. fractured right hip Getting supportive care and physical therapy . Dr. Shelley looking in on the patient. 8. GERD she is on pantoprazole 9. anemia hemoglobin is up to 11.6. Holding the Epogen. 10. renal osteodystrophy Phosphorus level Is now normal. no more induration. I doubt that this is calciphyllaxis. Subjective Date/time seen: 08/20/21 12:50 Interval history: patient feels about the same. Not in any pain at this point. No shortness of breath. She had peritoneal dialysis last night. Fluid was clear and flows were good. She was seen at 8:00 a.m. Exam Narrative: WDWN in NAD skin no rash or sq nodules head ncat lungs clear bilateral cor reg no rub or gallop abd BS+ nontender and soft ext trace edema . Still has some tenderness in the calves.no more induration. Objective Data Vital Signs Vital Signs: Vital Signs - 24 hr 08/19/21 14:00 08/19/21 16:20 08/19/21 18:00 Temperature 36.4 C 36.7 C Pulse Rate 86 91 90 Respiratory Rate 16 16 Blood Pressure 94/50 L 95/65 L Pulse Oximetry 99 100 Oxygen Delivery 08/19/21 19:37 08/19/21 20:00 08/19/21 20:36 Temperature 36.0 C L Pulse Rate 78 85 Respiratory Rate 18 Blood Pressure 92/62 L Pulse Oximetry 94 94 Oxygen Delivery Room Air 08/19/21 20:00 08/20/21 00:00 08/20/21 00:12 Temperature 36.3 C L Pulse Rate 91 89 Respiratory Rate 18 Blood Pressure 99/60 L Pulse Oximetry 98 Oxygen Delivery Room Air 06/22/22 04:43 08/20/21 04:00 08/20/21 05:32 Temperature 36.2 C L Pulse Rate 82 89 Respiratory Rate 18 Blood Pressure 80/58 L 98/72 L Pulse Oximetry 95 Oxygen Delivery 08/20/21 08:50 08/20/21 08:40 08/20/21 08:00 Temperature 36.6 C Pulse Rate 88 88 Respiratory Rate 16 Blood Pressure 87/52 L 93/58 L Pulse Oximetry Oxygen Delivery Room Air 08/20/21 09:10 08/20/21 09:30 08/20/21 09:50 Temperature Pulse Rate 84 81 84 Respiratory Rate Blood Pressure 92/59 L 97/57 L 82/54 L Pulse Oximetry Oxygen Delivery 08/20/21 10:10 08/20/21 10:30 08/20/21 10:50 Temperature Pulse Rate 83 80 86 Respiratory Rate Blood Pressure 82/53 L 91/43 L 72/50 L Pulse Oximetry Oxygen Delivery 08/20/21 11:10 08/20/21 11:30 08/20/21 08:00 Temperature Pulse Rate 82 78 81 Respiratory Rate Blood Pressure 84/52 L 87/50 L Pulse Oximetry Oxygen Delivery 08/20/21 11:50 08/20/21 12:02 Temperature 36.3 C L Pulse Rate 86 83 Respiratory Rate 16 Blood Pressure 90/55 L 97/53 L Pulse Oximetry Oxygen Delivery Intake/Output Intake/Output: Intake & Output 08/17/21 08/18/21 08/19/21 08/20/21 23:59 23:59 23:59 23:59 Intake Total 120 470 650 360 Output Total 370 526 468 0 Balance -250 -56 182 360 Meds/Results Medications: Active Medications Generic Name Dose Route Start Last Admin Trade Name Freq PRN Reason Stop Dose Admin Acetaminophen 650 mg 08/09/21 16:31 08/19/21 05:59 Acetaminophen 325 Mg Tablet PO 650 mg Q4H PRN Administration Pain 1-3 Hydrocodone Bitart/Acetaminophen 1 tab 08/10/21 11:13 08/20/21 04:09 Hydrocodone/Acetaminophen (*Crx) 5-325 Mg Tablet PO
--- NOTE | 2021-08-20 14:48 | PCPTNOTE ---
Attempted to see patient for PT at this time, however patient refused. Per RN patient is pretty fatigued from dialysis this morning but may try therapy if patient is up for it. Patient initially agreed to try therapy, when attempting to put patient's head of bed down, patient reported pain and to just forget it right now. Patient did not want to move or participate in PT at this time.
--- NOTE | 2021-08-20 14:50 | PM.IMPN ---
Progress Note: A&P Assessment and Plan (1) Fall from ground level: Code(s): W18.30XA - Fall on same level, unspecified, initial encounter Status: Acute Assessment and Plan: Monitor, PTOT (2) Closed subcapital fracture of neck of right femur: Qualifiers: Encounter type: initial encounter Qualified Code(s): S72.011A - Unspecified intracapsular fracture of right femur, initial encounter for closed fracture Code(s): S72.011A - Unspecified intracapsular fracture of right femur, initial encounter for closed fracture Status: Acute Assessment and Plan: Doing well, will need skilled placement. (3) Closed fracture of right distal radius: Qualifiers: Encounter type: initial encounter Fracture morphology: Colles' Qualified Code(s): S52.531A - Colles' fracture of right radius, initial encounter for closed fracture Code(s): S52.501A - Unspecified fracture of the lower end of right radius, initial encounter for closed fracture Status: Acute Assessment and Plan: Status post repair (4) End-stage renal disease on peritoneal dialysis: Code(s): N18.6 - End stage renal disease; Z99.2 - Dependence on renal dialysis Status: Acute Assessment and Plan: Hemodialysis or PD per Nephrology. Vitals have been stable. Patient does have hemodialysis catheter in. Has not received hemodialysis recently. Need to make decision about PD versus hemodialysis as patient cannot go to skilled facility with PD. (5) Hypokalemia: Code(s): E87.6 - Hypokalemia Status: Acute Assessment and Plan: Monitor (6) Orthostatic hypotension: Code(s): I95.1 - Orthostatic hypotension Status: Acute Assessment and Plan: Continue midodrine. Monitor blood pressure. (7) Systolic CHF: Code(s): I50.20 - Unspecified systolic (congestive) heart failure Status: Acute Assessment and Plan: Monitor Appears compensated (8) Abnormal TSH: Code(s): R79.89 - Other specified abnormal findings of blood chemistry Status: Acute (9) Leukocytosis: Code(s): D72.829 - Elevated white blood cell count, unspecified Status: Acute Assessment and Plan: Monitor, no fever. infection not likely (10) Right sided weakness: Code(s): R53.1 - Weakness Status: Acute (11) Moderate aortic valve stenosis: Code(s): I35.0 - Nonrheumatic aortic (valve) stenosis Status: Acute Additional Plan 08/16/2021 interval history:? 66-year-old female s/p fall?right hip POD# 6,? seen by her surgeon, improving recommended to continue WBAT with Walker? care for patient has high risk of fall, will continue pain management and PT OT pending SNF,? with history of? end-stage renal disease on peritoneal dialysis seen by Dr. River? 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 her electrolytes within normal limits, patient with significant aortic stenosis and mitral valve?regurgitation and severe cardiomyopathy with EF of only 20-25%, patient hypotensive seen by chain saw mechanic unable to treat, due to PD, patient is already on max dose of midodrine 10 mg t.i.d. on 08/15 Patient had a right internal jugular tunneled dialysis catheter, today patient schedule for dialysis, patient is working with physical therapy currently, patient remains clinically stable and asymptomatic, will continue to monitor, unable to send the patient to rehab due to hypotension and unable to participate in PT OT will continue to monitor. Subjective Date/time seen: 08/20/21 14:50 Interval history: Patient resting comfortably without complaints. No overnight events noted. Eager to go to SNF when insurance covers it. Review of Systems Review of Systems: All systems reviewed & are unremarkable except as noted in HPI and belo
[2021-08-20] MEDS: ACETAMINOPHEN 325 MG TABLET 650 MG PO (19:52)
[2021-08-20] MEDS: SERTRALINE HCL 50 MG TABLET PO (21:22)
[2021-08-20] MEDS: GABAPENTIN 100 MG CAPSULE PO (21:22)
[2021-08-20] MEDS: GENTAMICIN SULFATE 0.1% CR 15 GM TUBE 1 APPLIC TOPICAL (21:30)
[2021-08-21] VITALS: PULSE 94
[2021-08-21 02:15] VITALS: BP 113/63; PULSE 95; RESP 18; TEMP 36.2; O2SAT 96
[2021-08-21 04:00] VITALS: PULSE 92
[2021-08-21 05:37] VITALS: BP 115/79; PULSE 91; RESP 16; TEMP 36.6; O2SAT 94
[2021-08-21] MEDS: LEVOTHYROXINE SODIUM 25 MCG TABLET PO (06:04)
[2021-08-21] MEDS: MIDODRINE HCL 10 MG TABLET PO (06:04)
[2021-08-21 06:20] LABS: Basophils Absolute Auto 0.1 K/mm3 (0.0-0.1); Basophils Percent Auto 0.7 % (0.2-1.2); Eosinophils Absolute Auto 0.3 K/mm3 (0-0.3); Eosinophils Percent Auto 2.6 % (0-4.4); Hematocrit 35.7 % (37.0-47.0); Hemoglobin 10.9 g/dL (12.0-15.0); Immature Granulocyte Absolute 0.06 K/mm3 (0.00-0.031); Immature Granulocyte Percent A 0.6 % (0-0.5); Lymphocytes Absolute Auto 1.77 K/mm3 (0.9-3.2); Lymphocytes Percent Auto 16.9 % (18.3-44.2); Mean Corpuscular HGB Conc 30.5 g/dl (32-36); Mean Corpuscular Hemoglobin 32.5 pg (26-34); Mean Corpuscular Volume 106.6 fl (80-100); Mean Platelet Volume 10.5 fl (7.4-10.4); Monocytes Absolute Auto 1.1 K/mm3 (0.1-0.6); Monocytes Percent Auto 10.4 % (2.6-8.5); Neutrophils Absolute Auto 7.2 K/mm3 (1.3-6.7); Neutrophils Percent Auto 68.8 % (45.5-73.1); Platelet Count Result 222 k/mm3 (150-375); Red Blood Count 3.35 M/mm3 (4.2-5.4); Red Cell Distribution Width 18.6 % (11.5-14.5); White Blood Count 10.5 K/mm3 (4.5-10.0)
[2021-08-21 06:44] LABS: Albumin Level 2.4 g/dL (3.5-5.1); Anion Gap 3 mmol/L (8-16); Blood Urea Nitrogen 28 mg/dL (7-17); Calcium 8.4 mg/dL (8.4-10.2); Carbon Dioxide 34 mmol/L (22-30); Chloride 98 mmol/L (98-107); Estimated CRCL calculation 11 ml/min; Estimated Glomerular Filt Rate 11; Glucose 82 mg/dL (65-110); Potassium 3.6 mmol/L (3.4-5.0); Sodium 135 mmol/L (137-145)
[2021-08-21] MEDS: ACETAMINOPHEN 325 MG TABLET 650 MG PO ×2 (07:09→11:46)
[2021-08-21 08:00] VITALS: PULSE 95
[2021-08-21] MEDS: ASPIRIN 81 MG CHEWABLE TABLET PO (08:01)
[2021-08-21] MEDS: SODIUM BICARBONATE TAB 650 MG TABLET 1300 MG PO (08:02)
[2021-08-21] MEDS: SEVELAMER CARBONATE 800 MG TABLET 3200 MG PO ×2 (08:02→11:39)
[2021-08-21] MEDS: PANTOPRAZOLE 40 MG TABLET PO (08:02)
[2021-08-21] MEDS: HEPARIN SODIUM 5,000 UNITS/ML VIAL 5000 UNITS SUB-Q (08:06)
[2021-08-21 10:00] VITALS: BP 93/58; PULSE 94; RESP 18; TEMP 36.8; O2SAT 93
[2021-08-21 10:58] LABS: EDCOVIDSCREEN Negative (Negative)
--- NOTE | 2021-08-21 11:45 | PM.DS ---
DS: Admitting Diagnosis Discharge Date August 21, 2021 Admitting Diagnosis Femoral neck fracture DS: Discharge Diagnosis Discharge Diagnosis (1) Fall from ground level: Code(s): W18.30XA - Fall on same level, unspecified, initial encounter Status: Acute Assessment and Plan: Monitor, PTOT (2) Closed subcapital fracture of neck of right femur: Qualifiers: Encounter type: initial encounter Qualified Code(s): S72.011A - Unspecified intracapsular fracture of right femur, initial encounter for closed fracture Code(s): S72.011A - Unspecified intracapsular fracture of right femur, initial encounter for closed fracture Status: Acute Assessment and Plan: Doing well, will need skilled placement. (3) Closed fracture of right distal radius: Qualifiers: Encounter type: initial encounter Fracture morphology: Colles' Qualified Code(s): S52.531A - Colles' fracture of right radius, initial encounter for closed fracture Code(s): S52.501A - Unspecified fracture of the lower end of right radius, initial encounter for closed fracture Status: Acute Assessment and Plan: Status post repair (4) End-stage renal disease on peritoneal dialysis: Code(s): N18.6 - End stage renal disease; Z99.2 - Dependence on renal dialysis Status: Acute Assessment and Plan: Hemodialysis or PD per Nephrology. Vitals have been stable. Patient does have hemodialysis catheter in. Has not received hemodialysis recently. Need to make decision about PD versus hemodialysis as patient cannot go to skilled facility with PD. (5) Hypokalemia: Code(s): E87.6 - Hypokalemia Status: Acute Assessment and Plan: Monitor (6) Orthostatic hypotension: Code(s): I95.1 - Orthostatic hypotension Status: Acute Assessment and Plan: Continue midodrine. Monitor blood pressure. (7) Systolic CHF: Code(s): I50.20 - Unspecified systolic (congestive) heart failure Status: Acute Assessment and Plan: Monitor Appears compensated (8) Abnormal TSH: Code(s): R79.89 - Other specified abnormal findings of blood chemistry Status: Acute (9) Leukocytosis: Code(s): D72.829 - Elevated white blood cell count, unspecified Status: Acute Assessment and Plan: Monitor, no fever. infection not likely (10) Right sided weakness: Code(s): R53.1 - Weakness Status: Acute (11) Moderate aortic valve stenosis: Code(s): I35.0 - Nonrheumatic aortic (valve) stenosis Status: Acute DS: Summary Hospital Course Hospital Course: 66-year-old female with chronic hypertension, COPD, heart failure, end-stage renal disease on peritoneal dialysis S presenting after a fall. In the ER, she was found to have femoral neck fracture and Orthopedic surgery was consulted. Nephrology and Cardiology were consulted and her echo showed an EF of 20-25% with grade 2 diastolic dysfunction as well as moderate pulmonary hypertension. Of note, she had moderate aortic valve stenosis as well. Cardiology assessed the patient as being a moderate risk for a necessary procedure. Orthopedic surgery planned right hip hemiarthroplasty. The procedure was performed August 10, 2021. She had a change in neurological status postoperatively, CTA was negative for stroke. Etiology deemed to be secondary to multifactorial reasons and completely resolved. She was noted to need rehab at discharge, so she was converted from peritoneal dialysis to hemodialysis. She was noted to have an elevated TSH and was started on levothyroxine 25 mg August 09. Repeat TSH will be needed in 4-6 weeks. The patient continued to progress with therapy and a bed was found at a rehab facility for her to continue her care at. She will need close outpatient follow-up with Orthopedic surgery, cardiology for her severe aortic stenosis another cardiomyopathy conditions as well as N
--- NOTE | 2021-08-21 12:32 | PM.PNNEP ---
Progress Note: A&P Additional Plan 1. Ruby has end-stage renal disease. she switched from PD to HD yesterday. Will do another treatment tomorrow if she is still here. She is being set up for outpatient dialysis. 2. hypertension no longer an issue 3. hypotension. Blood pressure seems to be better. 4. sleep apnea She does not use a CPAP machine since she lost weight. 5. pre diabetes Sugars under good control 6. valvular heart disease . moderate aortic stenosis, moderate to severe mitral regurgitation, moderate pulmonary hypertension, a left ventricular ejection fraction of only 20-25%, and severely enlarged LV chamber. She also has grade 2 diastolic dysfunction. Cardiology is seeing the patient. 7. fractured right hip Getting supportive care and physical therapy . Dr. Shelley looking in on the patient. 8. GERD she is on pantoprazole 9. anemia hemoglobin is up to 10.9. Holding the Epogen. 10. renal osteodystrophy Phosphorus level is now normal. no more induration. I doubt that this is calciphyllaxis. Subjective Date/time seen: 08/21/21 12:32 Interval history: patient feels about the same. She did well in dialysis yesterday. No chest pain or shortness of breath Exam Narrative: WDWN in NAD skin no rash or sq nodules head ncat lungs clear bilateral cor reg no rub or gallop abd BS+ nontender and soft ext trace edema . Still has some tenderness in the calves.no more induration. Objective Data Vital Signs Vital Signs: Vital Signs - 24 hr 08/20/21 13:40 08/20/21 18:00 08/20/21 16:00 Temperature 36.4 C 36.5 C Pulse Rate 84 62 80 Respiratory Rate 16 18 Blood Pressure 93/59 L 113/71 Pulse Oximetry 97 99 Oxygen Delivery 08/20/21 20:00 08/20/21 21:57 08/21/21 00:00 Temperature 36.8 C Pulse Rate 99 92 94 Respiratory Rate 16 Blood Pressure 124/72 Pulse Oximetry 93 Oxygen Delivery 08/21/21 04:00 08/21/21 05:37 08/21/21 02:15 Temperature 36.6 C 36.2 C L Pulse Rate 92 91 95 Respiratory Rate 16 18 Blood Pressure 115/79 113/63 Pulse Oximetry 94 96 Oxygen Delivery 08/21/21 08:00 08/21/21 08:00 08/21/21 10:00 Temperature 36.8 C Pulse Rate 95 94 Respiratory Rate 18 Blood Pressure 93/58 L Pulse Oximetry 93 Oxygen Delivery Room Air Intake/Output Intake/Output: Intake & Output 08/18/21 08/19/21 08/20/21 08/21/21 23:59 23:59 23:59 23:59 Intake Total 470 650 750 360 Output Total 526 468 0 Balance -56 182 750 360 Meds/Results Medications: Active Medications Generic Name Dose Route Start Last Admin Trade Name Freq PRN Reason Stop Dose Admin Acetaminophen 650 mg 08/09/21 16:31 08/21/21 11:46 Acetaminophen 325 Mg Tablet PO 650 mg Q4H PRN Administration Pain 1-3 Hydrocodone Bitart/Acetaminophen 1 tab 08/10/21 11:13 08/20/21 04:09 Hydrocodone/Acetaminophen (*Crx) 5-325 Mg Tablet PO 08/28/21 11:12 1 tab Q3H PRN Administration Pain Rated 4-6 Albuterol 1 puff 08/09/21 01:09 08/16/21 23:44 Albuterol Sulfate (*Sp) Aerosol 1 Puff INHALATION 1 puff BID PRN Administration Shortness Of Breath Aspirin 81 mg 08/11/21 08:00 08/21/21 08:01 Aspirin 81 Mg Chewable Tablet PO 81 mg DAILY@0800 IRVING Administration Bisacodyl 10 mg 08/10/21 11:13 Bisacodyl 10 Mg Suppository RECTAL DAILY PRN Constipation Diazepam 5 mg 08/10/21 11:13 08/17/21 20:00 Diazepam (*Crx) 5 Mg Tablet PO 08/28/21 11:12 5 mg Q8H PRN Administration Muscle Spasm Gabapentin 100 mg 08/09/21 21:00 08/20/21 21:22 Gabapentin 100 Mg Capsule PO 100 mg HS IRVING Administration Gentamicin Sulfate 1 applic 08/09/21 21:00 08/20/21 21:30 Gentamicin Sulfate 0.1% Cr 15 Gm Tube TOPICAL 09/02/21 20:59 1 applic HS IRVING Administration Heparin Sodium (Porcine) 5,000 units 08/17/21 09:00 08/21/21 08:06 Heparin Sodium 5,000 Units/Ml Vial SUB-Q 5,000 units Q12
== END 2021-08-21 13:24 | DRG 521 ==
LOC: ANHED 17:49 → ANH2MED 19:08 → ANHICU 08-10 19:10 → ANH2MED 08-10 21:26
PROVIDERS: Internal Medicine; Internal Medicine Nephrology; Orthopaedic Surgery; Physician Assistant; Surgery; Admitting Provider Family Medicine; Emergency Provider General Practice; Visit Provider Student in an Organized Health Care Education/Training Program
PROC: 0SR901A Replacement of Right Hip Joint with Metal Synthetic Substitute, Uncemented, Open Approach (ICD-10-PCS; CPT 27125; principal; 2021-08-10 07:30)
PROC: 0JH63XZ Insertion of Tunneled Vascular Access Device into Chest Subcutaneous Tissue and Fascia, Percutaneous Approach (ICD-10-PCS; CPT 36908; principal; 2021-08-15 16:30)
DX: S72.011A Unspecified intracapsular fracture of right femur, initial encounter for closed fracture (principal); N18.6 End stage renal disease; I50.21 Acute systolic (congestive) heart failure; S52.531A Colles' fracture of right radius, initial encounter for closed fracture; E87.1 Hypo-osmolality and hyponatremia; I13.2 Hypertensive heart and chronic kidney disease with heart failure and with stage 5 chronic kidney disease, or end stage renal disease; I42.9 Cardiomyopathy, unspecified; Z99.2 Dependence on renal dialysis; E87.6 Hypokalemia; I95.1 Orthostatic hypotension; Z20.822 Contact with and (suspected) exposure to COVID-19; W18.30XA Fall on same level, unspecified, initial encounter; K21.9 Gastro-esophageal reflux disease without esophagitis; R73.03 Prediabetes; N25.0 Renal osteodystrophy; J44.9 Chronic obstructive pulmonary disease, unspecified; G47.33 Obstructive sleep apnea (adult) (pediatric); R79.89 Other specified abnormal findings of blood chemistry; D72.829 Elevated white blood cell count, unspecified; D64.9 Anemia, unspecified; I27.20 Pulmonary hypertension, unspecified; I35.0 Nonrheumatic aortic (valve) stenosis; I34.0 Nonrheumatic mitral (valve) insufficiency; R53.1 Weakness; Z91.81 History of falling; M75.101 Unspecified rotator cuff tear or rupture of right shoulder, not specified as traumatic; Z86.19 Personal history of other infectious and parasitic diseases; Z79.899 Other long term (current) drug therapy; Z79.51 Long term (current) use of inhaled steroids
CPT/HCPCS: 36415; 36600; 70496; 70498; 71045; 73030; 73060; 73110; 73502; 73560; 77001; 78306; 80048; 80053; 80069; 82375; 82533; 82805; 82948; 83050; 83735; 83970; 84100; 84295; 84439; 84443; 84480; 85025; 85027; 85610; 85730; 86704; 86705; 86706; 86707; 86803; 86850; 86900; 86901; 87040; 87340; 87426; 87517; 90945; 92526; 92610; 92611; 93005; 93306; 94640; 96374; 96375; 97110; 97162; 97166; 97530; 97535; 99285; A9270; A9561; C1713; C1750; C1776; C9803; G0257; J0131; J0171; J0330; J0690; J0834; J1100; J1170; J1644; J2250; J2270; J2370; J2405; J2704; J3010; J7030; J7040; J7050; P9047; Q5105; Q9967